=== PATIENT | female | born 1975 | race Caucasian/White ===

== ENCOUNTER → 2017-06-06 | Outpatient (REF) | payer BC ==
[2017-06-06 12:53] LABS: INFLUENZA A AMPLIFICATION NEGATIVE (NEGATIVE); INFLUENZA B AMPLIFICATION NEGATIVE (NEGATIVE); RSV AMPLIFICATION NEGATIVE (NEGATIVE)
== END ==
LOC: M LAB REF 11:36
DX: J11.1 Influenza due to unidentified influenza virus with other respiratory manifestations (principal)
CPT/HCPCS: 87502

== ENCOUNTER → 2018-06-04 | Outpatient (REF) | payer BC ==
[~2018-06-04] MED LIST: GLUC1000 OR; NUVA RING; XANA0.5T OR
== END ==
LOC: M LAB REF 12:28
PROVIDERS: ATTEND Nurse Practitioner Adult Health
DX: E11.65 Type 2 diabetes mellitus with hyperglycemia (principal)

== ENCOUNTER 2018-10-29 07:23 | Inpatient (IN) | payer BC ==
[~2018-10-29] VITALS: Ht 160 cm; Wt 60.5 kg
[2018-10-29] MEDS ORDERED: ROSU5TAB5 PO (07:34)
[2018-10-29] MEDS ORDERED: OZEM2INJ INJ (07:34)
[2018-10-29] MEDS ORDERED: HYDR25TAB PO (07:34)
[2018-10-29] MEDS ORDERED: NS 1,000 ML IV ONE ×2 (08:15→09:45)
[2018-10-29] MEDS ORDERED: KETOROLAC 30 MG/ML VIAL (J1885) IV ONE (08:15)
[2018-10-29] MEDS ORDERED: ONDANSETRON 4MG/2ML VIAL (J2405) IV ONE ×2 (08:15→09:30)
--- NOTE | 2018-10-29 08:35 | REP ---
PA and lateral chest: Comparison is the portable chest of 08/18/2011. The lung jacinto are clear. The cardiac size is normal. The jhony, mediastinum, and skeletal structures are unremarkable. Impression: Negative PA and lateral chest. . There is no interval change. There is no free subdiaphragmatic air. Electronically Signed by Roberto Fregoso MD 10/29/2018 08:27 A
[2018-10-29] MEDS ORDERED: MORPHINE 2 MG/ML 1ML SYRINGE (J2270) IV ONE ×2 (08:45→09:45)
[2018-10-29] MEDS ORDERED: ASPIRIN 81 MG CHEW TABLET PO ONE (08:45)
[2018-10-29 09:02] LABS: BASO % 0.2 % (0.0-1.0); HEMATOCRIT 41.4 % (36.0-47.0); HEMOGLOBIN 14.2 g/dl (12.0-15.5); LYMPH # 0.7 10^3/uL (1.5-4.5); LYMPH % 5.8 % (24.0-44.0); MEAN CORPUSCULAR HEMOGLOBIN 29.6 pg (27.0-33.0); MEAN CORPUSCULAR HGB CONC 34.3 g/dl (32.0-36.5); MEAN CORPUSCULAR VOLUME 86.3 fl (80.0-96.0); MONO # 0.6 10^3/uL (0.0-0.8); MONO % 4.7 % (0.0-5.0); NEUTROPHILS # 11.2 10^3/uL (1.8-7.7); PLATELET COUNT, AUTOMATED 288 10^3/uL (150-450); WHITE BLOOD COUNT 12.7 10^3/uL (4.0-10.0)
[2018-10-29 09:37] LABS: ALBUMIN 4.5 GM/DL (3.2-5.2); ALT/SGPT 21 U/L (12-78); BILIRUBIN,DIRECT 0.1 MG/DL (0.0-0.2); BILIRUBIN,TOTAL 0.5 MG/DL (0.2-1.0); BLOOD UREA NITROGEN 30 MG/DL (7-18); CALCIUM LEVEL 10.5 MG/DL (8.5-10.1); CARBON DIOXIDE LEVEL 28 MEQ/L (21-32); CHLORIDE LEVEL 98 MEQ/L (98-107); CK-MB VALUE MASS < 1.0 NG/ML (<3.6); CPK CREATINE PHOSPHOKINASE 109 U/L (26-192); CREATININE FOR GFR 1.36 MG/DL (0.55-1.30); GLOMERULAR FILTRATION RATE 45.2 (>58); GLUCOSE, FASTING 396 MG/DL (70-100); LIPASE 306 U/L (73-393); MB/CK RELATIVE INDEX 0.92 (< OR =4); POTASSIUM SERUM 3.6 MEQ/L (3.5-5.1); SODIUM LEVEL 139 MEQ/L (136-145); TOTAL PROTEIN 8.6 GM/DL (6.4-8.2); TROPONIN I < 0.02 NG/ML (< 0.10)
[2018-10-29] MEDS ORDERED: ISOVUE-370 76% 100ML VIAL (Q9967) As Ordered ONE (09:43)
[2018-10-29] MEDS ORDERED: HumuLIN R (REGULAR) INSULIN (NovoLIN R) **100U/ML** PER UNIT IV ONE (10:45)
--- NOTE | 2018-10-29 10:48 | REP ---
CT of the chest with IV contrast: Comparison is 05/20/2010. There is no thoracic aortic dissection. There is no periaortic hematoma. The ascending thoracic aorta is normal size measuring 3.4 cm in diameter. There are no emboli in the pulmonary trunk or central pulmonary arteries. There are no emboli in the pulmonary lobe or segment branches. There are no infiltrates or pleural effusions. There are no masses or nodules. There is no mediastinal, hilar or axillary lymph node enlargement. Cardiac size is normal. There is no pericardial effusion. Impression: Negative CT study of the chest. There is no thoracic aortic dissection. The ascending aorta is normal diameter. There are no pulmonary emboli. Electronically Signed by Roberto Fregoso MD 10/29/2018 10:39 A
--- NOTE | 2018-10-29 11:02 | REP ---
CT of the abdomen and pelvis with IV contrast, without bowel contrast: Studies performed. Contiguous with the chest CT. There is no abdominal aortic dissection or periaortic hematoma. There is no abdominal aortic aneurysm. The hepatic parenchyma, gallbladder, pancreas, spleen, adrenals, kidneys are unremarkable. The bowel and mesentery are unremarkable. Pelvis: The uterus and adnexa are unremarkable. There is no ascites or adenopathy. The bladder is unremarkable. Impression: There is no evidence of abdominal aortic dissection or aneurysm. No periaortic hematoma. Otherwise, negative CT of the abdomen and pelvis. Electronically Signed by Roberto Fregoso MD 10/29/2018 10:53 A
[2018-10-29] MEDS ORDERED: GLUCAGON FOR INJ 1 MG VIAL (J1610) SC PRN (12:30)
[2018-10-29] MEDS ORDERED: GLUCOSE 4 GM CHEW TABLET PO PRN (12:30)
[2018-10-29] MEDS ORDERED: KETOROLAC 30 MG/ML VIAL (J1885) IV PRN (12:30)
[2018-10-29] MEDS ORDERED: ONDANSETRON 4MG/2ML VIAL (J2405) IV PRN (12:30)
[2018-10-29] MEDS ORDERED: DEXTROSE 50% 50 ML SYRINGE IV PRN (12:30)
[2018-10-29] MEDS ORDERED: IBUP200T45 PO (12:46)
[2018-10-29] MEDS ORDERED: BAYE325T12 PO (12:46)
[2018-10-29] MEDS ORDERED: MULTCAP PO (12:46)
[2018-10-29] MEDS ORDERED: META28.32 PO (12:46)
[2018-10-29 14:55] VITALS: BP 150/90
[2018-10-29] MEDS: PANTOPRAZOLE 40MG INJ (PROTONIX) (C9113) IV SCH (15:26)
[2018-10-29] MEDS: METOCLOPRAMIDE INJ 10MG/2ML VIAL (J2765) IV SCH ×2 (15:27→21:28)
[2018-10-29] MEDS: NS 1,000 ML IV SCH ×2 (15:40→21:29)
[2018-10-29 16:20] VITALS: BP 133/91
[2018-10-29] MEDS: HumaLOG INSULIN (NovoLOG) PER UNIT SC SCH ×2 (17:30→21:00)
--- NOTE | 2018-10-29 17:53 | HPEPDOC ---
General Date of Admission Oct 29, 2018 at 12:19 Date of Service: Oct 29, 2018 Chief Complaint The patient is a 43-year-old female admitted with a reason for visit of Lactic Acidosis,Side Effect Of Drug. Source: Patient, Family, RN/MD Exam Limitations: No limitations Severity: Moderate History of Present Illness 43 year old female with PMH of Uncontrolled Diabetes non insulin dependent, hypertension, anxiety, GERD, NSTEMI due to oral contraceptive use was started on a new antidiabetic medication Semaglutide 3 days ago. It was a subcut injection. 1 day after the injection she had a barbeque at her house and had a little to eat. From the evening she started having nausea followed by intractable vomiting throughout the night and the next day. She has not able to keep any food down. HShe noticed decreased urine output with dark colored urine. She was feeling extremely weak and tired so came to the ED. In [facility] ED her sugar was 476 and her lactate was elevated to 5.0. She was given 5 units of IV regular insulin with improvement of her blood sugar. She was give 2 liters of bolus ivf with improvement of her lactate down to 2.5. However she continued to have nausea and vomiting and unable to keep any food down so she was admitted to the hospitalist service. She was thought to have an severe side effect to Semaglu tide and lactacidosis. On my interview she complained of generalized abdominal pain in all the leti drants 10/10 in intensity , dull aching in nature which she attributed to retching and vomiting, it was a little better with morphine. She still has persistent nausea. Home Medications Scheduled Hydrochlorothiazide (Hydrochlorothiazide) 25 Mg Tablet, 25 MG PO DAILY, (Reported) Multivitamin (Multivitamins) 1 Each Capsule, 1 CAP PO DAILY, (Reported) Psyllium Husk (with Sugar) (Metamucil Powder) 575 Gm Powder, 1 PKT PO DAILY, (Reported) Rosuvastatin Calcium (Rosuvastatin Calcium) 5 Mg Tablet, 5 MG PO DAILY, (Reported) Semaglutide (Ozempic) 0.25 Mg/0.2 Ml Pen.injctr, 1 DOSE INJ QWEEK, (Reported) PATIENT STATES THIS MONDAY MORNING WAS THE FIRST TIME SHE RECEIVED INJECTION AND SHE BELIEVES SHE IS HERE DUE TO A BAD REACTION FROM IT. Scheduled PRN Aspirin (Aspirin) 325 Mg Tablet, 650 MG PO DAILY PRN for PAIN, (Reported) Ibuprofen (Ibu-200) 200 Mg Tablet, 400 MG PO Q6H PRN for PAIN, (Reported) Allergies Coded Allergies: acetaminophen (Verified Allergy, Intermediate, RASH, 10/29/18) codeine (Verified Allergy, Intermediate, rash, itchy, 10/29/18) hydrocodone (Verified Allergy, Intermediate, RASH, 10/29/18) Past Medical History Medical History Diabetes, hypertension, anxiety, GERD, NSTEMI due to oral contraceptive use. Surgical History c section, cardiac cath Family History Significant Family History: Diabetes Social History * Smoker: Denies Alcohol: occationally Drugs: denies A-FIB/CHADSVASC A-FIB History Current/History of A-Fib/PAF?: No Review of Systems Constitutional: Reports: Chills Eyes: Denies: Pain, Vision change ENT: Denies: Head Aches, Ear Pain, Dysphagia Skin: Denies: Rash, Lesions, Breakdown Pulmonary: Denies: Dyspnea, Cough Cardiovascular: Reports: Chest Pain, Palpitations Gastrointestinal: Reports: Nausea, Vomiting, Abdominal Pain Genitourinary: Reports: Other Symptoms (decreased urine output. ) Hematologic: Denies: Bruising, Bleeding Excessively Endocrine: Reports: Polyuria Musculoskeletal: Denies: Neck Pain, Back Pain, Joint Pain, Muscle Pain, Spasms Neurological: Denies: Weakness, Numbness, Change in speech, Confusion Physical Examination General Exam: Positive: Alert, Cooperative, Mild Distress Eye Exam: Positive: PERRLA, Conjunctiva & lids normal, EOMI; Negative: Sclera icteric ENT Exam: Positive: Atraumatic, Mucous membr. moist/pink, Pharynx Normal Neck Exam: Positive: Supple; Negative: JVD, thyromegaly Chest Exam: Positive: Clear to auscultation, Normal air movement Heart Exam: Positive: Rate Normal, Regular Rhythm, Normal S1, Normal S2; Negative: Murmurs, Rubs Abdomen Exam: Positive: BS Hypoactive, Soft, Tenderness (generalized tenderness); Negative: Hepatospenomegaly Extremity Exam: Positive: Normal pulses; Negative: Clubbing, Cyanosis, Edema Skin Exam: Positive: Nl turgor and temperature; Negative: Breakdown, Lesion Neuro Exam: Positive: Normal Gait, Normal Speech, Cranial Nerves 3-12 NL, Reflexes 2+ Psych Exam: Positive: Memory Intact, Oriented x 3 Vital Signs Vital Signs Date Time Temp Pulse Resp B/P (MAP) Pulse Ox O2 Delivery O2 Flow Rate FiO2 10/29/18 14:55 97.5 100 20 150/90 (110) 100 10/29/18 10:45 4.0 10/29/18 10:41 Room Air Laboratory Data Labs 24H Laboratory Tests 2 10/29/18 08:46: Immature Granulocyte % (Auto) 1.3, White Blood Count 12.7H, Red Blood Count 4.80, Hemoglobin 14.2, Hematocrit 41.4, Mean Corpuscular Volume 86.3, Mean Corpuscular Hemoglobin 29.6, Mean Corpuscular Hemoglobin Concent 34.3, Red Cell Distribution Width 12.7, Platelet Count 288, Neutrophils (%) (Auto) 88.0H, Lymphocytes (%) (Auto) 5.8L, Monocytes (%) (Auto) 4.7, Eosinophils (%) (Auto) 0.0, Basophils (%) (Auto) 0.2, Neutrophils # (Auto) 11.2H, Lymphocytes # (Auto) 0.7L, Monocytes # (Auto) 0.6, Eosinophils # (Auto) 0.0, Basophils # (Auto) 0.0, Nucleated Red Blood Cells % (auto) 0.0, Anion Gap 13, Glomerular Filtration Rate 45.2L, Lactic Acid Level 5.0*H, Calcium Level 10.5H, Aspartate Amino Transf (AST/SGOT) 10, Alanine Aminotransferase (ALT/SGPT) 21, Alkaline Phosphatase 75, Total Bilirubin 0.5, Direct Bilirubin 0.1, Total Creatine Kinase 109, Creatine Kinase MB < 1.0, Creatine Kinase MB Relative Index 0.92, Troponin I < 0.02, Total Protein 8.6H, Albumin 4.5, Albumin/Globulin Ratio 1.10, Lipase 306 10/29/18 08:54: POC Glucose (Misc Panel) 426H, POC Sodium (Misc Panel) 139, POC Potassium (Misc Panel) 3.6, POC Chloride (Misc Panel) 96L, POC Total CO2 (Misc Panel) 28.0H, POC Blood Urea Nitrogen (Misc Panel 35H, POC Ionized Calcium (Misc Panel) 4.6, POC Creatinine (Misc Panel) 1.0, POC Hematocrit (Misc Panel) 43.0 7/22/19 09:14: POC Beta HCG, Quantitative < 5.0 10/29/18 09:55: POC Total CO2 (Misc Panel) 28.0H, POC pH (Misc Panel) 7.389, POC Base Excess (Misc Panel) 2.0, POC Saturated Percent O2 (Misc) 99H, POC pO2 (Misc Panel) 156.0H, POC pCO2 (Misc Panel) 44.7, POC HCO3 (Misc Panel) 27.0H 10/29/18 12:03: Bedside Glucose (Misc Panel) 133H 10/29/18 12:05: Urine Color STRAW, Urine Appearance CLEAR, Urine pH 8.0, Urine Specific Echo 1.050, Urine Protein NEGATIVE, Urine Glucose (UA) 3+H, Urine Ketones 1+H, Urine Blood 1+H, Urine Nitrite NEGATIVE, Urine Bilirubin NEGATIVE, Urine Urobilinogen 0.2, Urine Leukocyte Esterase NEGATIVE, Urine WBC (Auto) 0, Urine RBC (Auto) 2, Urine Hyaline Casts (Auto) 0, Urine Bacteria (Auto) NEGATIVE, Urine Squamous Epithelial Cells 0, Urine Sperm (Auto) 10/29/18 13:04: Lactic Acid Followup at 4 Hours 2.5*H CBC/BMP Laboratory Tests 10/29/18 08:46 Red Blood Count 4.80, Mean Corpuscular Volume 86.3, Mean Corpuscular Hemoglobin 29.6, Mean Corpuscular Hemoglobin Concent 34.3, Red Cell Distribution Width 12.7, Neutrophils (%) (Auto) 88.0 H, Lymphocytes (%) (Auto) 5.8 L, Monocytes (%) (Auto) 4.7, Eosinophils (%) (Auto) 0.0, Basophils (%) (Auto) 0.2, Neutrophils # (Auto) 11.2 H, Lymphocytes # (Auto) 0.7 L, Monocytes # (Auto) 0.6, Eosinophils # (Auto) 0.0, Basophils # (Auto) 0.0 Assessment/Plan 43 year old female with PMH of Uncontrolled Diabetes non insulin dependent, hypertension, anxiety, GERD, NSTEMI due to oral contraceptive use was started on a new antidiabetic medication Semaglutide 3 days ago. It was a subcut injection. 1 day after the injection she had a barbeque at her house and had a little to eat. From the evening she started having nausea followed by intractable vomiting throughout the night and the next day. She has not able to keep any food down. HShe noticed decreased urine output with dark colored urine. She was feeling extremely weak and tired so came to the ED. In [facility] ED her sugar was 476 and her lactate was elevated to 5.0. She was given 5 units of IV regular insulin with improvement of her blood sugar. She was give 2 liters of bolus ivf with improvement of her lactate down to 2.5. However she continued to have nausea and vomiting and unable to keep any food down so she was admitted to the hospitalist service. She was thought to have an severe side effect to Semaglu tide and lactacidosis. Nausea and vomiting possibly side effect of medication however she tells me her stomach is very sensitive and she often has this problem so i am concerned whether she has underlying diabetic gastroparesis or not will get a gastric emptying study when she can tolerate oral diet. symptomatic management reglan, zofran, pantoprazole , toradol IVF, full liquids. as tolerated. Lactacidosis due to uncontrolled diabetes, intractable vomiting with possibly dehydration. continue IVF. Acute kidney injury due to dehydration from intractable vomiting, no oral intake and osmotic diuresis from high sugars. continue IVF Diabetes mellitus not on insulin diagnosed in 2009 but never controlled. uncontrolled. noncompliant with meds. will give lispro and levemir insulin hypertension will start on losartan at HS will hold HCTZ for now. GERD continue pantoprazole DVT prophylaxis ordered. Plan / VTE VTE Prophylaxis Ordered?: Yes BLANKA LOCO MD Oct 29, 2018 17:24
[2018-10-29] MEDS ORDERED: PROMETHAZINE INJ 25 MG/ML VIAL (J2550) IV ONE (18:30)
--- NOTE | 2018-10-29 19:49 | ECGEPIP ---
[facility] - ED Test Date: 2018-10-29 Pat Name: SONI LAWSON Department: Room: - Gender: Female Acid Loader: ROB : 1975 Requested By: MADELEINE Jin PA-C Order Number: [id number] Reading MD: Avni Gaming Measurements Intervals [place] Rate: 94 P: 44 MI: 164 QRS: 8 QRSD: 89 T: 93 QT: 344 QTc: 432 Interpretive Statements SINUS RHYTHM POSSIBLE LEFT ATRIAL ENLARGEMENT POOR R WAVE PROGRESSION NO PRIORS FOR COMPARISON MODERATE T-WAVE ABNORMALITY, CONSIDER LATERAL ISCHEMIA Electronically Signed on 10-29-2018 19:48:45 EDT by Avni Gaming
[2018-10-29 20:11] VITALS: BP 139/75
[2018-10-29] MEDS: LOSARTAN 25 MG TAB PO SCH (21:29)
[2018-10-30] MEDS: NS 1,000 ML IV SCH (03:35)
[2018-10-30] MEDS: METOCLOPRAMIDE INJ 10MG/2ML VIAL (J2765) IV SCH ×2 (05:07→13:04)
[2018-10-30 05:34] VITALS: BP 142/82
[2018-10-30 06:49] LABS: BASO % 0.2 % (0.0-1.0); EOS % 0.2 % (0.0-3.0); HEMATOCRIT 34.2 % (36.0-47.0); LYMPH # 1.6 10^3/uL (1.5-4.5); MEAN CORPUSCULAR HEMOGLOBIN 29.9 pg (27.0-33.0); MEAN CORPUSCULAR HGB CONC 33.6 g/dl (32.0-36.5); MEAN CORPUSCULAR VOLUME 89.1 fl (80.0-96.0); MONO # 0.9 10^3/uL (0.0-0.8); MONO % 6.6 % (0.0-5.0); NEUTROPHILS # 10.5 10^3/uL (1.8-7.7); NEUTROPHILS % 80.4 % (36.0-66.0); PLATELET COUNT, AUTOMATED 216 10^3/uL (150-450); RED BLOOD COUNT 3.84 10^6/uL (4.00-5.40); WHITE BLOOD COUNT 13.1 10^3/uL (4.0-10.0)
[2018-10-30 06:56] LABS: HEMOGLOBIN 11.5 g/dl (12.0-15.5)
[2018-10-30 07:05] LABS: BLOOD UREA NITROGEN 28 MG/DL (7-18); CALCIUM LEVEL 7.9 MG/DL (8.5-10.1); CARBON DIOXIDE LEVEL 29 MEQ/L (21-32); CHLORIDE LEVEL 109 MEQ/L (98-107); CREATININE FOR GFR 0.96 MG/DL (0.55-1.30); GLOMERULAR FILTRATION RATE > 60.0 (>58); GLUCOSE, FASTING 145 MG/DL (70-100); POTASSIUM SERUM 3.4 MEQ/L (3.5-5.1); SODIUM LEVEL 143 MEQ/L (136-145)
--- NOTE | 2018-10-30 07:50 | IPNPDOC ---
Date Seen The patient was seen on 10/30/18. Progress Note SUBJECTIVE: Patient is a 43-year-old female with past medical history of diabetes non insulin dependent, Hypertension, Anxiety, GERD, NSTEMI from oral contraceptives who presented to the ER with lactic acidosis, likely a side effect of new medication. OBJECTIVE PHYSICAL EXAMINATION: VITAL SIGNS: Please see below. LABORATORY DATA, IMAGING STUDIES, MICROBIOLOGY: Please see below. 1. Chest x-ray 10/29/18: Negative PA and lateral chest. There is no interval change. There is no free subdiaphragmatic air. 2. Angiography CT 10/29/18: Negative CT study of the chest.There is no thoracic aortic dissection. The ascending aorta is normal diameter. There are no pulmonary emboli 3. Abdominal/Pelvis CT 10/29/18: There is no evidence of abdominal aortic dissection or aneurysm. No periaortic hematoma. Otherwise, negative CT of the abdomen and pelvis. DVT prophylaxis ordered?: Yes, ASSESSMENT AND PLAN: Patient is a 43-year-old female with past medical history of diabetes non insulin dependent, Hypertension, Anxiety, GERD, NSTEMI from oral contraceptives PROBLEMS: Nausea and vomiting possibly side effect of medication however she tells me her stomach is very sensitive and she often has this problem so i am concerned whether she has underlying diabetic gastroparesis or not will get a gastric emptying study when she can tolerate oral diet. symptomatic management reglan, zofran, pantoprazole , toradol IVF, full liquids. as tolerated. Marijuaha patient admits to intermittent use of marihuana last use was on 10/27 and thats the day when she started vomiting. So wondering if this could be cyclical vomiting syndrome due to marihuana Lactacidosis due to uncontrolled diabetes, intractable vomiting with possibly dehydration. continue IVF. Acute kidney injury resolved. due to dehydration from intractable vomiting, no oral intake and osmotic diuresis from high sugars. continue IVF Diabetes mellitus not on insulin diagnosed in 2009 but never controlled. uncontrolled. noncompliant with meds. will give lispro and levemir insulin hypertension will start on losartan at HS will hold HCTZ for now. Anxiety / depression and stress says says that lots of bad things are going on in her personal life that is making everything worse. She was emotional and crying. GERD continue pantoprazole DVT prophylaxis ordered. DISPOSITION: VS, I&O, 24H, Fishbone Vital Signs/I&O Vital Signs Date Time Temp Pulse Resp B/P (MAP) Pulse Ox O2 Delivery O2 Flow Rate FiO2 10/30/18 05:34 98.6 91 18 142/82 (102) 98 2.0 10/29/18 10:41 Room Air I&O- Last 24 Hours up to 6 AM 10/30/18 06:00 Intake Total 2780 ml Output Total 0 ml Balance 2780 ml Laboratory Data 24H LABS Laboratory Tests 2 10/29/18 08:46: Immature Granulocyte % (Auto) 1.3, White Blood Count 12.7H, Red Blood Count 4.80, Hemoglobin 14.2, Hematocrit 41.4, Mean Corpuscular Volume 86.3, Mean Corpuscular Hemoglobin 29.6, Mean Corpuscular Hemoglobin Concent 34.3, Red Cell Distribution Width 12.7, Platelet Count 288, Neutrophils (%) (Auto) 88.0H, Lymphocytes (%) (Auto) 5.8L, Monocytes (%) (Auto) 4.7, Eosinophils (%) (Auto) 0.0, Basophils (%) (Auto) 0.2, Neutrophils # (Auto) 11.2H, Lymphocytes # (Auto) 0.7L, Monocytes # (Auto) 0.6, Eosinophils # (Auto) 0.0, Basophils # (Auto) 0.0, Nucleated Red Blood Cells % (auto) 0.0, Anion Gap 13, Glomerular Filtration Rate 45.2L, Lactic Acid Level 5.0*H, Calcium Level 10.5H, Aspartate Amino Transf (AST/SGOT) 10, Alanine Aminotransferase (ALT/SGPT) 21, Alkaline Phosphatase 75, Total Bilirubin 0.5, Direct Bilirubin 0.1, Total Creatine Kinase 109, Creatine Kinase MB < 1.0, Creatine Kinase MB Relative Index 0.92, Troponin I < 0.02, Total Protein 8.6H, Albumin 4.5, Albumin/Globulin Ratio 1.10, Lipase 306 10/29/18 08:54: POC Glucose (Misc Panel) 426H, POC Sodium (Misc Panel) 139, POC Potassium (Misc Panel) 3.6, POC Chloride (Misc Panel) 96L, POC Total CO2 (Misc Panel) 28.0H, POC Blood Urea Nitrogen (Misc Panel 35H, POC Ionized Calcium (Misc Panel) 4.6, POC Creatinine (Misc Panel) 1.0, POC Hematocrit (Misc Panel) 43.0 10/29/18 09:14: POC Beta HCG, Quantitative < 5.0 10/29/18 09:55: POC Total CO2 (Misc Panel) 28.0H, POC pH (Misc Panel) 7.389, POC Base Excess (Misc Panel) 2.0, POC Saturated Percent O2 (Misc) 99H, POC pO2 (Misc Panel) 156.0H, POC pCO2 (Misc Panel) 44.7, POC HCO3 (Misc Panel) 27.0H 10/29/18 12:03: Bedside Glucose (Misc Panel) 133H 10/29/18 12:05: Urine Color STRAW, Urine Appearance CLEAR, Urine pH 8.0, Urine Specific [place] 1.050, Urine Protein NEGATIVE, Urine Glucose (UA) 3+H, Urine Ketones 1+H, Urine Blood 1+H, Urine Nitrite NEGATIVE, Urine Bilirubin NEGATIVE, Urine Urobilinogen 0.2, Urine Leukocyte Esterase NEGATIVE, Urine WBC (Auto) 0, Urine RBC (Auto) 2, Urine Hyaline Casts (Auto) 0, Urine Bacteria (Auto) NEGATIVE, Urine Squamous Epithelial Cells 0, Urine Sperm (Auto) 10/29/18 13:04: Lactic Acid Followup at 4 Hours 2.5*H 10/29/18 17:01: Bedside Glucose (Misc Panel) 224H 10/29/18 20:37: Bedside Glucose (Misc Panel) 197H 10/30/18 06:12: Immature Granulocyte % (Auto) 0.6, White Blood Count 13.1H, Red Blood Count 3.84L, Hemoglobin 11.5#L, Hematocrit 34.2L, Mean Corpuscular Volume 89.1, Mean Corpuscular Hemoglobin 29.9, Mean Corpuscular Hemoglobin Concent 33.6, Red Cell Distribution Width 13.2, Platelet Count 216, Neutrophils (%) (Auto) 80.4H, Lymphocytes (%) (Auto) 12.0L, Monocytes (%) (Auto) 6.6H, Eosinophils (%) (Auto) 0.2, Basophils (%) (Auto) 0.2, Neutrophils # (Auto) 10.5H, Lymphocytes # (Auto) 1.6, Monocytes # (Auto) 0.9H, Eosinophils # (Auto) 0.0, Basophils # (Auto) 0.0, Nucleated Red Blood Cells % (auto) 0.0, Anion Gap 5L, Glomerular Filtration Rate > 60.0, Blood Urea Nitrogen 28H, Creatinine 0.96, Sodium Level 143, Potassium Level 3.4L, Chloride Level 109H, Carbon Dioxide Level 29, Calcium Level 7.9#L CBC/BMP Laboratory Tests 10/29/18 08:46 Red Blood Count 4.80, Mean Corpuscular Volume 86.3, Mean Corpuscular Hemoglobin 29.6, Mean Corpuscular Hemoglobin Concent 34.3, Red Cell Distribution Width 12.7, Neutrophils (%) (Auto) 88.0 H, Lymphocytes (%) (Auto) 5.8 L, Monocytes (%) (Auto) 4.7, Eosinophils (%) (Auto) 0.0, Basophils (%) (Auto) 0.2, Neutrophils # (Auto) 11.2 H, Lymphocytes # (Auto) 0.7 L, Monocytes # (Auto) 0.6, Eosinophils # (Auto) 0.0, Basophils # (Auto) 0.0 10/30/18 06:12 Red Blood Count 3.84 L, Mean Corpuscular Volume 89.1, Mean Corpuscular Hemoglobin 29.9, Mean Corpuscular Hemoglobin Concent 33.6, Red Cell Distribution Width 13.2, Neutrophils (%) (Auto) 80.4 H, Lymphocytes (%) (Auto) 12.0 L, Monocytes (%) (Auto) 6.6 H, Eosinophils (%) (Auto) 0.2, Basophils (%) (Auto) 0.2, Neutrophils # (Auto) 10.5 H, Lymphocytes # (Auto) 1.6, Monocytes # (Auto) 0.9 H, Eosinophils # (Auto) 0.0, Basophils # (Auto) 0.0, Calcium Level 7.9 #L Attending Note Attending Note I have personally seen and examined the patient this am. I agree with the finding and the plan of care as documented above in the resident's/ medical student's note. SEJAL HARRISON OMS-3 Oct 30, 2018 07:50 BLANKA LOCO MD Oct 30, 2018 16:35
[2018-10-30] MEDS ORDERED: PILL CUTTER 1 EACH XX PRN (08:00)
[2018-10-30] MEDS: HumaLOG INSULIN (NovoLOG) PER UNIT SC SCH ×4 (08:41→20:43)
[2018-10-30] MEDS: KCL 40MEQ in NS 1000ML 1,000 ML IV SCH ×2 (08:50→20:40)
[2018-10-30] MEDS: ROSUVASTATIN 10 MG TAB (CRESTOR) PO SCH (08:51)
[2018-10-30] MEDS ORDERED: ONDANSETRON 4 MG ORAL DISINTEGRATING TAB (Q0162 PER 1MG) PO SCH (09:00)
[2018-10-30] MEDS ORDERED: PROMETHAZINE INJ 25 MG/ML VIAL (J2550) IV ONE (10:30)
[2018-10-30] MEDS: PANTOPRAZOLE 40MG INJ (PROTONIX) (C9113) IV SCH (13:03)
[2018-10-30 14:00] VITALS: BP 175/90
--- NOTE | 2018-10-30 16:49 | REP ---
NUCLEAR GASTRIC EMPTYING SCAN: Following the oral administration of 1.06 mCi of technetium 99m sulfur colloid in 1 scrambled egg and 12 ounces of water, images of the stomach are obtained in the anterior and posterior projections for 90 minutes. The gastric activity is measured. At the end of 90 minutes, there is not significant emptying of the stomach. The same degree of activity is seen at the 90 minute felecia compared to the start of the exam. IMPRESSION: Findings compatible with gastroparesis. Electronically Signed by Roberto Lim MD 10/31/2018 10:08 A
[2018-10-30] MEDS: METOCLOPRAMIDE 5 MG TAB PO SCH ×2 (18:11→20:42)
[2018-10-30] MEDS: ONDANSETRON 4MG/2ML VIAL (J2405) IV PRN (18:11)
[2018-10-30 20:00] VITALS: BP 152/87
[2018-10-30] MEDS: LOSARTAN 25 MG TAB PO SCH (20:43)
[2018-10-30] MEDS: KETOROLAC 30 MG/ML VIAL (J1885) IV PRN (21:03)
[2018-10-31] MEDS: KETOROLAC 30 MG/ML VIAL (J1885) IV PRN (05:49)
[2018-10-31] MEDS: KCL 40MEQ in NS 1000ML 1,000 ML IV SCH (05:50)
[2018-10-31 06:23] VITALS: BP 183/92
[2018-10-31 06:44] LABS: BASO % 0.2 % (0.0-1.0); EOS % 0.2 % (0.0-3.0); HEMATOCRIT 36.7 % (36.0-47.0); HEMOGLOBIN 12.5 g/dl (12.0-15.5); LYMPH # 1.5 10^3/uL (1.5-4.5); LYMPH % 11.9 % (24.0-44.0); MEAN CORPUSCULAR HEMOGLOBIN 28.9 pg (27.0-33.0); MEAN CORPUSCULAR HGB CONC 34.1 g/dl (32.0-36.5); MONO # 0.8 10^3/uL (0.0-0.8); MONO % 6.5 % (0.0-5.0); NEUTROPHILS # 10.2 10^3/uL (1.8-7.7); NEUTROPHILS % 80.7 % (36.0-66.0); PLATELET COUNT, AUTOMATED 242 10^3/uL (150-450); RED BLOOD COUNT 4.32 10^6/uL (4.00-5.40); WHITE BLOOD COUNT 12.7 10^3/uL (4.0-10.0)
[2018-10-31 07:07] LABS: BLOOD UREA NITROGEN 23 MG/DL (7-18); CALCIUM LEVEL 8.4 MG/DL (8.5-10.1); CARBON DIOXIDE LEVEL 23 MEQ/L (21-32); CHLORIDE LEVEL 109 MEQ/L (98-107); CREATININE FOR GFR 0.97 MG/DL (0.55-1.30); GLOMERULAR FILTRATION RATE > 60.0 (>58); GLUCOSE, FASTING 129 MG/DL (70-100); POTASSIUM SERUM 3.6 MEQ/L (3.5-5.1); SODIUM LEVEL 140 MEQ/L (136-145)
[2018-10-31] MEDS: ROSUVASTATIN 10 MG TAB (CRESTOR) PO SCH (07:48)
[2018-10-31] MEDS: ONDANSETRON 4MG/2ML VIAL (J2405) IV PRN (07:48)
[2018-10-31] MEDS: METOCLOPRAMIDE 5 MG TAB PO SCH (07:48)
[2018-10-31] MEDS ORDERED: diphenhydrAMINE 12.5MG/5ML ELIXIR UDC PO PRN (08:30)
[2018-10-31] MEDS ORDERED: hydrOXYzine 10MG/5ML SYRUP PO PRN (08:30)
[2018-10-31] MEDS: HumaLOG INSULIN (NovoLOG) PER UNIT SC SCH ×4 (08:34→20:48)
[2018-10-31] MEDS: METAMUCIL (PSYLLIUM) PACKET PO SCH (09:00)
[2018-10-31] MEDS ORDERED: METOCLOPRAMIDE HCL LIQUID 10 MG/10 ML UDC PO SCH (09:00)
[2018-10-31] MEDS: FIBER-CON 625 MG TAB PO SCH (09:52)
[2018-10-31] MEDS: hydroCHLOROthiazide 25 MG TAB PO SCH (09:52)
[2018-10-31] MEDS: MIRALAX *UNIT DOSE* 17GM PACKET PO SCH (09:53)
[2018-10-31] MEDS ORDERED: FLEET ENEMA PR PRN (12:15)
[2018-10-31 14:00] VITALS: BP 150/90
[2018-10-31] MEDS: PANTOPRAZOLE 40MG INJ (PROTONIX) (C9113) IV SCH ×2 (14:29→20:47)
[2018-10-31 15:00] VITALS: BP 167/95
[2018-10-31 15:01] VITALS: BP 178/106
[2018-10-31 15:39] VITALS: BP 158/90
--- NOTE | 2018-10-31 18:35 | IPNPDOC ---
Text Note Date of Service The patient was seen on 10/31/18. NOTE SUBJECTIVE: Patient examined at bedside, continues to have nausea and vomiting this morning, and right upper quadrant pain. She is throwing up even the liquids she is trying to ingest. She is tearful about her symptoms, expressing anxiety and concern that she is having these persistent symptoms for months without getting better. Otherwise patient denies chest pain, shortness breath, nausea, vomiting, fevers, chills. OBJECTIVE PHYSICAL EXAMINATION: VITAL SIGNS: Please see below. GENERAL: NAD, sitting up in bed awake alert oriented speaking in complete sentences, A&Ox3, spitting up into vomit bag HEENT: Moist mucous membranes no elevation in CVP CARDIOVASCULAR: S1 S2 regular no additional heart sounds appreciated. RESPIRATORY: Clear to auscultation bilaterally. ABDOMINAL: Bowel sounds present abdomen soft and non-tender. Discomfort with palpation of RUQ. No guarding, rebound, rigidity EXTREMITIES: No clubbing cyanosis or edema NEUROLOGICAL: Spontaneously moves all 4 extremities cranial 2 through 12 grossly intact no gross focal deficits appreciated PSYCHOLOGICAL: crying, anxious and stressed about symptoms LABORATORY DATA, MICROBIOLOGY: Please see below. IMAGING STUDIES: 10/27/2018 gastric imaging study:. The gastric activity is measured. At the end of 90 minutes, there is not significant emptying of the stomach. The same degree of activity is seen at the 90 minute felecia compared to the start of the exam. IMP RESSION: Findings compatible with gastroparesis. ASSESSMENT AND PLAN: This is a 43 yo F with uncontrolled diabetes, recently started on Ozempic 10/26, here for n/v since 10/27. PROBLEMS: 1. Intractable nausea and vomiting. Multifactorial: Anxiety, possible IBS, diabetic gastroparesis with A1c 10, cyclic vomiting syndrome, Ozempic side effect. She continues to have intractable nausea and vomiting this morning, crying about her symptoms. She underwent gastric emptying study yesterday which revealed gastroparesis. She's been started on prokinetic Reglan & antiemetics wi thout much improvement. She refuses to be on SSRI, as she had been on a trial of Cymbalta for about 6 months in the past for her presumed IBS, however she states this made her symptoms worse. Currently will withhold GI meds with goal of giving her GI tract rest and time to recover, especially as she has been on multiple medications over the past months in attempting to alleviate her ongoing symptoms. Make nothing by mouth except meds, IV PPI for gastric protection. Will continue monitoring. Encouraged increased fiber intake and stool softeners. 2. Anxiety: Patient reports being on Xanax in the past which was stopped by her new PCP. Is visibly anxious during her hospitalization, crying on exam. Will start Atarax and monitor. 3. Hypertension: Continue home hydrochlorothiazide. She is also been started on Cozaar during this hospitalization. Mildly elevated BP, which I suspect is partially induced by her stress and anxiety over GI symptoms. Patient asymptomatic. Will monitor BP as we aim to improve her nausea and vomiting and anxiety. Will consider switching to CCB if bp does not improve. 4. Uncontrolled NIDDM2: Diagnosed in 2009, the patient noncompliant with meds and diabetes was never under control. Patient should avoid Ozempic as her GI issues may be a result of the medication. A1c 10. Patient counseled on lifestyle changes and medication compliance. Blood sugars in acceptable range on hospitalization. Continue ISS. 5. Leukocytosis: Patient afebrile and does not display signs of infection. I suspect this is likely reactionary to her ongoing nausea and vomiting. Monitor 6. Hypokalemia: Resolved from yesterday with supplementation 7. Hyperlipidemia: Continue home Crestor 8. GERD: Home PPI switch to IV twice a day given her acute GI symptoms 9. Marijuana use: Patient counseled on possibility of this worsening her GI symptoms and she will likely benefit from cessation. DVT prophylaxis: MERVIN/sequentials DISPOSITION: Pending clinical improvement. I saw and evaluated the patient. I agree with the findings and plan of care as documented in the above note Alyssa OWUSU, I+O VSAlyssa, I+O Laboratory Tests 10/31/18 06:06 Red Blood Count 4.32, Mean Corpuscular Volume 85.0, Mean Corpuscular Hemoglobin 28.9, Mean Corpuscular Hemoglobin Concent 34.1, Red Cell Distribution Width 12.7, Neutrophils (%) (Auto) 80.7 H, Lymphocytes (%) (Auto) 11.9 L, Monocytes (%) (Auto) 6.5 H, Eosinophils (%) (Auto) 0.2, Basophils (%) (Auto) 0.2, Neutrophils # (Auto) 10.2 H, Lymphocytes # (Auto) 1.5, Monocytes # (Auto) 0.8, Eosinophils # (Auto) 0.0, Basophils # (Auto) 0.0, Calcium Level 8.4 L Vital Signs Date Time Temp Pulse Resp B/P (MAP) Pulse Ox O2 Delivery O2 Flow Rate FiO2 10/31/18 15:39 158/90 (112) 10/31/18 15:00 99.0 88 17 100 10/30/18 05:34 2.0 10/29/18 10:41 Room Air I&O- Last 24 Hours up to 6 AM 10/31/18 06:00 Intake Total 2844 ml Output Total 340 ml Balance 2504 ml PIERRE CARVAJAL DO Oct 31, 2018 18:35 JOAQUIN RICE MD Nov 01, 2018 18:46
[2018-10-31] MEDS: LOSARTAN 25 MG TAB PO SCH (20:47)
[2018-10-31 22:00] VITALS: BP 148/92
[2018-11-01] MEDS: KETOROLAC 30 MG/ML VIAL (J1885) IV PRN ×2 (00:35→09:32)
[2018-11-01 06:00] VITALS: BP 156/100
[2018-11-01 06:18] LABS: BASO % 0.2 % (0.0-1.0); EOS # 0.1 10^3/uL (0.0-0.50); EOS % 0.8 % (0.0-3.0); HEMATOCRIT 37.8 % (36.0-47.0); LYMPH % 21.5 % (24.0-44.0); MEAN CORPUSCULAR HEMOGLOBIN 29.3 pg (27.0-33.0); MEAN CORPUSCULAR HGB CONC 34.4 g/dl (32.0-36.5); MEAN CORPUSCULAR VOLUME 85.1 fl (80.0-96.0); MONO # 0.7 10^3/uL (0.0-0.8); MONO % 7.9 % (0.0-5.0); NEUTROPHILS # 6.3 10^3/uL (1.8-7.7); NEUTROPHILS % 68.9 % (36.0-66.0); PLATELET COUNT, AUTOMATED 259 10^3/uL (150-450); RED BLOOD COUNT 4.44 10^6/uL (4.00-5.40); WHITE BLOOD COUNT 9.1 10^3/uL (4.0-10.0)
[2018-11-01 06:41] LABS: BLOOD UREA NITROGEN 29 MG/DL (7-18); CALCIUM LEVEL 8.7 MG/DL (8.5-10.1); CARBON DIOXIDE LEVEL 27 MEQ/L (21-32); CHLORIDE LEVEL 105 MEQ/L (98-107); CREATININE FOR GFR 0.94 MG/DL (0.55-1.30); GLOMERULAR FILTRATION RATE > 60.0 (>58); GLUCOSE, FASTING 97 MG/DL (70-100); POTASSIUM SERUM 3.3 MEQ/L (3.5-5.1); SODIUM LEVEL 138 MEQ/L (136-145)
[2018-11-01] MEDS: HumaLOG INSULIN (NovoLOG) PER UNIT SC SCH ×4 (07:30→21:00)
[2018-11-01] MEDS ORDERED: POTASSIUM CHLORIDE 10 MEQ SR TABLET PO ONE (09:00)
[2018-11-01] MEDS: MIRALAX *UNIT DOSE* 17GM PACKET PO SCH (09:28)
[2018-11-01] MEDS: METAMUCIL (PSYLLIUM) PACKET PO SCH (09:29)
[2018-11-01] MEDS: PANTOPRAZOLE 40MG INJ (PROTONIX) (C9113) IV SCH (09:29)
[2018-11-01] MEDS: FIBER-CON 625 MG TAB PO SCH (09:29)
[2018-11-01] MEDS: ROSUVASTATIN 10 MG TAB (CRESTOR) PO SCH (09:30)
[2018-11-01] MEDS: hydroCHLOROthiazide 25 MG TAB PO SCH (09:30)
[2018-11-01 14:00] VITALS: BP 150/80
--- NOTE | 2018-11-01 16:55 | IPNPDOC ---
Text Note Date of Service The patient was seen on 11/01/18. NOTE SUBJECTIVE: Pt examined at bedside. Is feeling better today. No vomiting thus far this morning, and much less nausea. She is in better spiritis, but still having anxiety, requesting to be started on Xanax as she had been in the past, but then was stopped by her new PCP. Pt has minimal appetite today, but overall improving. Denies chest pain, shortness breath, nausea, vomiting, fevers, chills. OBJECTIVE PHYSICAL EXAMINATION: VITAL SIGNS: Please see below. GENERAL: NAD, sitting up in bed awake alert oriented speaking in complete sentences, A&Ox3, resting comfy HEENT: Moist mucous membranes , supple neck CARDIOVASCULAR: S1 S2 regular no additional heart sounds appreciated. RESPIRATORY: Clear to auscultation bilaterally. Equal chest rise ABDOMINAL: Bowel sounds present abdomen soft and non-tender. Nontender to palpation. Nondistended. No guarding, rebound, rigidity EXTREMITIES: No clubbing cyanosis or edema NEUROLOGICAL: Spontaneously moves all 4 extremities cranial 2 through 12 grossly intact no gross focal deficits appreciated PSYCHOLOGICAL: cheerful, but anxious about health, requesting anxiolytics LABORATORY DATA, MICROBIOLOGY: Please see below. IMAGING STUDIES: 10/27/2018 gastric imaging study:. The gastric activity is measured. At the end of 90 minutes, there is not significant emptying of the stomach. The same degree of activity is seen at the 90 minute felecia compared to the start of the exam. IMPRESSION: Findings compatible with gastroparesis. ASSESSMENT AND PLAN: This is a 43 yo F with uncontrolled diabetes, recently started on Ozempic 10/26, here for n/v that started 10/27, and worsening chronic RUQ abd pain. PROBLEMS: 1. Intractable nausea and vomiting. Multifactorial: Anxiety, possible IBS, diabetic gastroparesis with A1c 10, cyclic vomiting syndrome, Ozempic side effect. Improved today with supportive care, increasing fiber and stool softeners, and withholding GI meds, including antiemetics. Continue withholding GI meds with goal of giving her GI tract rest and time to recover. Given that she has somewhat of an appetite today, will advance from NPO to clear liquids and monitor. She has been advised to eat small portions and increase intake gradually. Continue IV PPI for gastric protection. 2. Anxiety: Patient reports being on Xanax in the past which was stopped by her new PCP. Will start Atarax and monitor. 3. Hypertension: Continue home hydrochlorothiazide. She is also been started on Cozaar during this hospitalization. Still uncontrolled bp. Increase BB dose, monitor. Pt asymptomatic. 4. Uncontrolled NIDDM2: Diagnosed in 2009, the patient noncompliant with meds and diabetes was never under control. Patient should avoid Ozempic as her GI issues may be a result of the medication. A1c 10. Patient counseled on lifestyle changes and medication compliance. Blood sugars in acceptable range on hospitalization. Continue ISS. 5. Leukocytosis: Normalized, likely reactionary to her ongoing nausea and vomiting. Monitor 6. Hypokalemia: Likely 2/2 vomiting. Repleted. 7. Hyperlipidemia: Continue home Crestor 8. GERD: Home PPI switch to IV twice a day given her acute GI symptoms 9. Marijuana use: Patient counseled on possibility of this worsening her GI symptoms and she will likely benefit from cessation. DVT prophylaxis: MERVIN/sequentials DISPOSITION: Pending clinical improvement. Advance diet slowly, possible dc home next 24-48 hrs. I saw and evaluated the patient. I agree with the findings and plan of care as documented in the above note VS,Alyssa, I+O VSAlyssa, I+O Laboratory Tests 11/01/18 05:16 Red Blood Count 4.44, Mean Corpuscular Volume 85.1, Mean Corpuscular Hemoglobin 29.3, Mean Corpuscular Hemoglobin Concent 34.4, Red Cell Distribution Width 12.1, Neutrophils (%) (Auto) 68.9 H, Lymphocytes (%) (Auto) 21.5 L, Monocytes (%) (Auto) 7.9 H, Eosinophils (%) (Auto) 0.8, Basophils (%) (Auto) 0.2, Neutro phils # (Auto) 6.3, Lymphocytes # (Auto) 2.0, Monocytes # (Auto) 0.7, Eosinophils # (Auto) 0.1, Basophils # (Auto) 0.0, Calcium Level 8.7 Vital Signs Date Time Temp Pulse Resp B/P (MAP) Pulse Ox O2 Delivery O2 Flow Rate FiO2 11/01/18 14:00 98.9 92 18 150/80 (103) 99 10/30/18 05:34 2.0 10/29/18 10:41 Room Air I&O- Last 24 Hours up to 6 AM 11/01/18 06:00 Intake Total 150 ml Output Total 1300 ml Balance -1150 ml PIERRE CARVAJAL DO Nov 01, 2018 16:55 JOAQUIN RICE MD Nov 03, 2018 17:44
[2018-11-01] MEDS ORDERED: MAGNESIUM CITRATE 300 ML BTL PO ONE (19:30)
[2018-11-01] MEDS: ONDANSETRON 4MG/2ML VIAL (J2405) IV SCH (19:49)
[2018-11-01] MEDS: ALPRAZolam 0.25 MG TAB PO PRN (21:39)
[2018-11-01] MEDS: LOSARTAN 50 MG TAB PO SCH (21:40)
[2018-11-01 22:00] VITALS: BP 146/99
[2018-11-02] MEDS: ONDANSETRON 4MG/2ML VIAL (J2405) IV SCH ×6 (01:41→20:31)
[2018-11-02 05:38] LABS: BASO % 0.3 % (0.0-1.0); EOS # 0.1 10^3/uL (0.0-0.50); EOS % 0.6 % (0.0-3.0); HEMATOCRIT 39.1 % (36.0-47.0); HEMOGLOBIN 13.8 g/dl (12.0-15.5); LYMPH # 1.7 10^3/uL (1.5-4.5); LYMPH % 21.7 % (24.0-44.0); MEAN CORPUSCULAR HEMOGLOBIN 29.7 pg (27.0-33.0); MEAN CORPUSCULAR HGB CONC 35.3 g/dl (32.0-36.5); MEAN CORPUSCULAR VOLUME 84.1 fl (80.0-96.0); MONO # 0.7 10^3/uL (0.0-0.8); MONO % 8.3 % (0.0-5.0); NEUTROPHILS # 5.4 10^3/uL (1.8-7.7); NEUTROPHILS % 68.7 % (36.0-66.0); PLATELET COUNT, AUTOMATED 285 10^3/uL (150-450); RED BLOOD COUNT 4.65 10^6/uL (4.00-5.40); WHITE BLOOD COUNT 7.8 10^3/uL (4.0-10.0)
[2018-11-02 05:57] LABS: BLOOD UREA NITROGEN 34 MG/DL (7-18); CALCIUM LEVEL 8.9 MG/DL (8.5-10.1); CARBON DIOXIDE LEVEL 27 MEQ/L (21-32); CHLORIDE LEVEL 103 MEQ/L (98-107); CREATININE FOR GFR 1.05 MG/DL (0.55-1.30); GLOMERULAR FILTRATION RATE > 60.0 (>58); GLUCOSE, FASTING 100 MG/DL (70-100); POTASSIUM SERUM 3.2 MEQ/L (3.5-5.1); SODIUM LEVEL 138 MEQ/L (136-145)
[2018-11-02 06:00] VITALS: BP 135/85
[2018-11-02] MEDS: HumaLOG INSULIN (NovoLOG) PER UNIT SC SCH ×5 (07:30→20:32)
[2018-11-02] MEDS ORDERED: POTASSIUM CHLORIDE 10 MEQ SR TABLET PO ONE (08:15)
[2018-11-02] MEDS: FIBER-CON 625 MG TAB PO SCH (09:27)
[2018-11-02] MEDS: PANTOPRAZOLE 40MG TAB (PROTONIX) PO SCH (09:27)
[2018-11-02] MEDS: hydroCHLOROthiazide 25 MG TAB PO SCH (09:28)
[2018-11-02] MEDS: MIRALAX *UNIT DOSE* 17GM PACKET PO SCH ×3 (09:28→13:58)
[2018-11-02] MEDS: METAMUCIL (PSYLLIUM) PACKET PO SCH ×3 (09:28→13:57)
[2018-11-02] MEDS: ROSUVASTATIN 10 MG TAB (CRESTOR) PO SCH (09:29)
--- NOTE | 2018-11-02 12:54 | IPNPDOC ---
Text Note Date of Service The patient was seen on 11/02/18. NOTE SUBJECTIVE: Pt examined at bedside with in room. Vomited yesterday after attempting clear liquid diet. Vomited again this am. Has no appetite. Anxiety better after starting Xanax yesterday. Pt had 1 small mucous BM today, without much improvement after. Denies chest pain, shortness breath, nausea, vomiting, fevers, chills. OBJECTIVE PHYSICAL EXAMINATION: VITAL SIGNS: Please see below. GENERAL: NAD, sitting up in bed awake alert oriented speaking in complete sentences, A&Ox3, resting comfy HEENT: Moist mucous membranes , supple neck CARDIOVASCULAR: S1 S2 regular no additional heart sounds appreciated. RESPIRATORY: Clear to auscultation bilaterally. Equal chest rise ABDOMINAL: Bowel sounds normoactive, soft, non-tender. Nondistended. No guarding, rebound, rigidity EXTREMITIES: No clubbing cyanosis or edema NEUROLOGICAL: Spontaneously moves all 4 extremities, no gross focal deficits appreciated PSYCHOLOGICAL: cheerful, no longer anxious LABORATORY DATA, MICROBIOLOGY: Please see below. IMAGING STUDIES: 10/27/2018 gastric imaging study:. The gastric activity is measured. At the end of 90 minutes, there is not significant emptying of the stomach. The same degree of activity is seen at the 90 minute felecia compared to the start of the exam. IMPRESSION: Findings compatible with gastroparesis. ASSESSMENT AND PLAN: This is a 43 yo F with uncontrolled diabetes, recently started on Ozempic 10/26, here for n/v that started 10/27, and worsening chronic RUQ abd pain. PROBLEMS: 1. Intractable nausea and vomiting. Multifactorial: Anxiety, possible IBS, diabetic gastroparesis with A1c 10, cyclic vomiting syndrome, Ozempic side effect. Had improved when made NPO, but nausea returned with attempting clear liquids yesterday. Patient encouraged to continue diet slowly and take in small portions. Continue supportive care, fiber and stool softeners. Continue PPI for gastric protection. Patient also had 1 small mucousy bowel movement earlier today, concern for possible IBD versus IBS. IBD panel ordered. Patient never had a colonoscopy or EGD in the past. Given her persistent symptoms, will consult Surgery. 2. Anxiety: Patient reports being on Xanax in the past which was stopped by her new PCP. Started on Atarax and Xanax, with positive response. 3. Hypertension: Continue home hydrochlorothiazide. She was started on Cozaar during this hospitalization, dose increased, with BP now controlled. 4. Uncontrolled NIDDM2: Diagnosed in 2009, the patient noncompliant with meds and diabetes was never under control. Patient should avoid Ozempic as her GI issues may be a result of the medication. A1c 10. Patient counseled on lifestyle changes and medication compliance. Blood sugars in acceptable range on hospitalization. Continue ISS. 5. Hypokalemia: Likely 2/2 vomiting. Repleted. 6. Hyperlipidemia: Continue home Crestor 7. GERD: Continue PPI 8. Marijuana use: Patient counseled on possibility of this worsening her GI symptoms and she will likely benefit from cessation. DVT prophylaxis: MERVIN/sequentials DISPOSITION: Pending clinical improvement. Advance diet slowly. Surgery consulted. I saw and evaluated the patient. I agree with the findings and plan of care as documented in the above note VS,Alyssa, I+O VS, Alyssa, I+O Laboratory Tests 11/02/18 05:18 Red Blood Count 4.65, Mean Corpuscular Volume 84.1, Mean Corpuscular Hemoglobin 29.7, Mean Corpuscular Hemoglobin Concent 35.3, Red Cell Distribution Width 12.1, Neutrophils (%) (Auto) 68.7 H, Lymphocytes (%) (Auto) 21.7 L, Monocytes (%) (Auto) 8.3 H, Eosinophils (%) (Auto) 0.6, Basophils (%) (Auto) 0.3, Neutrophils # (Auto) 5.4, Lymphocytes # (Auto) 1.7, Monocytes # (Auto) 0.7, Eosinophils # (Auto) 0.1, Basophils # (Auto) 0.0, Calcium Level 8.9 Vital Signs Date Time Temp Pulse Resp B/P (MAP) Pulse Ox O2 Delivery O2 Flow Rate FiO2 11/02/18 06:00 98.1 85 18 135/85 (102) 97 10/30/18 05:34 2.0 10/29/18 10:41 Room Air I&O- Last 24 Hours up to 6 AM 11/02/18 06:00 Intake Total 660 ml Output Total 1850 ml Balance -1190 ml PIERRE CARVAJAL DO Nov 02, 2018 12:54 JOAQUIN RICE MD Nov 03, 2018 17:46
[2018-11-02 14:00] VITALS: BP 160/100
[2018-11-02] MEDS ORDERED: IBUPROFEN 400 MG TAB PO PRN (14:45)
[2018-11-02] MEDS: ALPRAZolam 0.25 MG TAB PO PRN (14:58)
[2018-11-02] MEDS ORDERED: hydrOXYzine 10 MG TAB PO PRN (16:45)
[2018-11-02 20:32] VITALS: BP 142/80
[2018-11-02] MEDS: LOSARTAN 50 MG TAB PO SCH (20:32)
[2018-11-02 22:00] VITALS: BP 142/80
[2018-11-03] MEDS: ONDANSETRON 4MG/2ML VIAL (J2405) IV SCH ×4 (00:38→12:11)
[2018-11-03 06:00] VITALS: BP 138/78
[2018-11-03 06:04] LABS: BASO % 0.4 % (0.0-1.0); EOS # 0.3 10^3/uL (0.0-0.50); EOS % 3.8 % (0.0-3.0); HEMATOCRIT 39.1 % (36.0-47.0); LYMPH # 1.7 10^3/uL (1.5-4.5); LYMPH % 24.3 % (24.0-44.0); MEAN CORPUSCULAR HGB CONC 35.8 g/dl (32.0-36.5); MEAN CORPUSCULAR VOLUME 83.9 fl (80.0-96.0); MONO # 0.8 10^3/uL (0.0-0.8); MONO % 11.5 % (0.0-5.0); NEUTROPHILS % 59.6 % (36.0-66.0); PLATELET COUNT, AUTOMATED 302 10^3/uL (150-450); RED BLOOD COUNT 4.66 10^6/uL (4.00-5.40); WHITE BLOOD COUNT 6.8 10^3/uL (4.0-10.0)
[2018-11-03 06:30] LABS: CALCIUM LEVEL 8.8 MG/DL (8.5-10.1); CREATININE FOR GFR 1.12 MG/DL (0.55-1.30); GLOMERULAR FILTRATION RATE 56.5 (>58); POTASSIUM SERUM 3.6 MEQ/L (3.5-5.1)
[2018-11-03] MEDS: PANTOPRAZOLE 40MG TAB (PROTONIX) PO SCH (08:12)
[2018-11-03] MEDS: FIBER-CON 625 MG TAB PO SCH (08:13)
[2018-11-03] MEDS: hydroCHLOROthiazide 25 MG TAB PO SCH (08:13)
[2018-11-03] MEDS: ROSUVASTATIN 10 MG TAB (CRESTOR) PO SCH (08:13)
[2018-11-03] MEDS: MIRALAX *UNIT DOSE* 17GM PACKET PO SCH (09:00)
[2018-11-03] MEDS: METAMUCIL (PSYLLIUM) PACKET PO SCH (10:23)
[2018-11-03] MEDS: ALPRAZolam 0.25 MG TAB PO PRN (10:25)
[2018-11-03] MEDS: HumaLOG INSULIN (NovoLOG) PER UNIT SC SCH (12:11)
[2018-11-03] MEDS ORDERED: PANT40TA3 PO (13:22)
[2018-11-03] MEDS ORDERED: FLEEENE12 PR (13:22)
[2018-11-03] MEDS ORDERED: ALPR0.25 PO ×2 (13:22→13:32)
[2018-11-03] MEDS ORDERED: COZA50TA PO (13:22)
[2018-11-03] MEDS ORDERED: FIBE62TA PO (13:22)
[2018-11-03 14:00] VITALS: BP 130/91
--- NOTE | 2018-11-03 15:25 | DS.PDOC ---
Discharge Summary General Date of Admission Nov 01, 2018 at 11:37 Attending Physician: JOAQUIN RICE MD Specialist/Consultants Involve: POONAM STATON DO Discharge Summary DISCHARGE DIAGNOSIS: Diabetic gastroparesis Possible IBS Cyclic vomiting syndrome Ozempic-induced nausea & vomiting Uncontrolled anxiety SECONDARY DIAGNOSIS: 1. Hypertension 2. Uncontrolled NIDDM 2 3. Hyperlipidemia 4. GERD 5. Marijuana use PROCEDURES PERFORMED DURING STAY: [None]. CONSULTANTS: Surgeon Dr. Staton HOSPITAL COURSE: . DISCHARGE MEDICATIONS: Please see below. ALLERGIES: Please see below. SUBJECTIVE: Patient examined at bedside with in room. States she's feeling much better. Able to hold down food. Just learned that he runcle this am, but states she is no longer anxious and feels it is under control since restarting Xanax. No abdominal pain or mucous in her stools. Otherwise patient denies chest pain, shortness, breath, vomiting, fevers, chills OBJECTIVE: PHYSICAL EXAMINATION: VITAL SIGNS: Please see below. GENERAL: Pleasant, A&Ox3, sitting up in bed awake alert oriented speaking in complete sentences no acute distress HEENT: Moist mucous membranes no elevation and CVP CARDIOVASCULAR: S1 S2 regular no additional heart sounds appreciated. RESPIRATORY: Clear to auscultation bilaterally. ABDOMINAL: Bowel sounds present abdomen soft and non-tender EXTREMITIES: No clubbing, cyanosis, edema NEUROLOGICAL: Spontaneously moves all 4 extremities cranial 2 through 12 grossly intact, no gross focal deficits appreciated PSYCHOLOGICAL: Appropriate LABORATORY DATA, MICROBIOLOGY: Please see below. IMAGING STUDIES: * 10/29/2018 CXR: Negative PA and lateral chest. .There is no interval change. There is no free subdiaphragmatic air. * 10/29/2018 CTA: Negative CT study of the chest. There is no thoracic aortic dissection. The ascending aorta is normal diameter. There are no pulmonary emboli. * 10/29/2018 CT abdomen and pelvis: There is no evidence of abdominal aortic dissection or aneurysm. No periaortic hematoma. Otherwise, negative CT of the abdomen and pelvis. * 10/30/2018 gastric emptying study: The gastric activity is measured. At the end of 90 minutes, there is not significant emptying of the stomach. The same degree of activity is seen at the 90 minute felecia compared to the start of the exam. IMPRESSION: Findings compatible with gastroparesis. DVT prophylaxis ordered: mechanical ASSESSMENT AND PLAN: This is a 43-year-old female with intractable nausea and vomiting, and worsening chronic right upper quadrant pain over the past month. DISPOSITION: home DISCHARGE CONDITION: Improved and Stable PROGNOSIS: good FOLLOW UP: pcp 1 week, surgery 2-3 weeks ACTIVITY: As prior to admission DIET: BRAT, low fat, high soluble fiber, consistent carb TIME SPENT ON DISCHARGE: 50 minutes Vital Signs/I&Os Vital Signs Date Time Temp Pulse Resp B/P (MAP) Pulse Ox O2 Delivery O2 Flow Rate FiO2 11/03/18 14:00 98.4 91 18 130/91 (104) 99 10/30/18 05:34 2.0 10/29/18 10:41 Room Air I&O- Last 24 Hours up to 6 AM 11/03/18 06:00 Intake Total 1195 ml Output Total 1500 ml Balance -305 ml Laboratory Data Labs 24H Laboratory Tests 2 11/02/18 16:54: Bedside Glucose (Misc Panel) 107H 11/02/18 19:57: Bedside Glucose (Misc Panel) 125H 11/03/18 05:32: Immature Granulocyte % (Auto) 0.4, White Blood Count 6.8, Red Blood Count 4.66, Hemoglobin 14.0, Hematocrit 39.1, Mean Corpuscular Volume 83.9, Mean Corpuscular Hemoglobin 30.0, Mean Corpuscular Hemoglobin Concent 35.8, Red Cell Distribution Width 12.2, Platelet Count 302, Neutrophils (%) (Auto) 59.6, Lymphocytes (%) (Auto) 24.3, Monocytes (%) (Auto) 11.5H, Eosinophils (%) (Auto) 3.8H, Basophils (%) (Auto) 0.4, Neutrophils # (Auto) 4.0, Lymphocytes # (Auto) 1 .7, Monocytes # (Auto) 0.8, Eosinophils # (Auto) 0.3, Basophils # (Auto) 0.0, Nucleated Red Blood Cells % (auto) 0.0, Anion Gap 8, Glomerular Filtration Rate 56.5L, Blood Urea Nitrogen 24H, Creatinine 1.12, Sodium Level 136, Potassium Level 3.6, Chloride Level 101, Carbon Dioxide Level 27, Calcium Level 8.8 11/03/18 12:01: Bedside Glucose (Misc Panel) 139H CBC/BMP Laboratory Tests 11/03/18 05:32 Red Blood Count 4.66, Mean Corpuscular Volume 83.9, Mean Corpuscular Hemoglobin 30.0, Mean Corpuscular Hemoglobin Concent 35.8, Red Cell Distribution Width 12. 2, Neutrophils (%) (Auto) 59.6, Lymphocytes (%) (Auto) 24.3, Monocytes (%) (Auto) 11.5 H, Eosinophils (%) (Auto) 3.8 H, Basophils (%) (Auto) 0.4, Neutrophils # (Auto) 4.0, Lymphocytes # (Auto) 1.7, Monocytes # (Auto) 0.8, Eosinophils # (Auto) 0.3, Basophils # (Auto) 0.0, Calcium Level 8.8 FSBS Laboratory Tests Test 11/02/18 16:54 11/02/18 19:57 11/03/18 12:01 Range/Units Bedside Glucose (Misc Panel) 107 125 139 70-105 MG/DL Discharge Medications Scheduled Calcium Polycarbophil (Fiber-Lax) 625 Mg Tablet, 2 EA PO DAILY Hydrochlorothiazide (Hydrochlorothiazide) 25 Mg Tablet, 25 MG PO DAILY, (Reported) Losartan Potassium (Cozaar) 50 Mg Tablet, 50 MG PO QHS Multivitamin (Multivitamins) 1 Each Capsule, 1 CAP PO DAILY, (Reported) Pantoprazole Sodium (Pantoprazole Sodium) 40 Mg Tablet.dr, 40 MG PO DAILY Psyllium Husk (with Sugar) (Metamucil Powder) 575 Gm Powder, 1 PKT PO DAILY, (Reported) Rosuvastatin Calcium (Rosuvastatin Calcium) 5 Mg Tablet, 5 MG PO DAILY, (Reported) Scheduled PRN Alprazolam (Alprazolam) 0.25 Mg Tablet, 0.25 MG PO Q8HP PRN for ANXIETY Aspirin (Aspirin) 325 Mg Tablet, 650 MG PO DAILY PRN for PAIN, (Reported) Ibuprofen (Ibu-200) 200 Mg Tablet, 400 MG PO Q6H PRN for PAIN, (Reported) Sodium Phosphate,Barbour-Dibasic (Fleet Enema) 133 Ml Enema, [address] DAILYPRN PRN for CONSTIPATION Allergies Coded Allergies: acetaminophen (Verified Allergy, Intermediate, RASH, 10/29/18) codeine (Verified Allergy, Intermediate, rash, itchy, 10/29/18) hydrocodone (Verified Allergy, Intermediate, RASH, 10/29/18) PIERRE CARVAJAL DO Nov 03, 2018 15:25
== END 2018-11-03 14:46 | disposition home or self-care (01) | DRG 48 ==
LOC: M ED 07:23 → M ED INP 12:19 → M MS4PR 14:55 → M MSPAV 10-31 15:19 → OBSVTOIN 11-01 11:37
PROVIDERS: ADMIT Internal Medicine Nephrology; ATTEND Internal Medicine
DX: E11.43 Type 2 diabetes mellitus with diabetic autonomic (poly)neuropathy (principal); N17.9 Acute kidney failure, unspecified; E87.2 Acidosis; K21.9 Gastro-esophageal reflux disease without esophagitis; E78.5 Hyperlipidemia, unspecified; F41.9 Anxiety disorder, unspecified; Z79.899 Other long term (current) drug therapy; Z88.5 Allergy status to narcotic agent; Z88.8 Allergy status to other drugs, medicaments and biological substances; I10 Essential (primary) hypertension; I25.2 Old myocardial infarction; Z91.14 Patient's other noncompliance with medication regimen; F12.90 Cannabis use, unspecified, uncomplicated; E87.6 Hypokalemia; D72.829 Elevated white blood cell count, unspecified

== ENCOUNTER → 2020-02-03 | Outpatient (REF) | payer BC ==
[~2020-02-03] MED LIST changes: +ALPR0.25 PO; +BAYE325T12 PO; +COZA50TA PO; +FIBE62TA PO; +FLEEENE12 PR; +HYDR25TAB PO; +IBUP200T45 PO; +META28.32 PO; +MULTCAP PO; +OZEM2INJ INJ; +PANT40TA29 PO; +ROSU5TAB5 PO
== END ==
LOC: M LAB REF 12:04
PROVIDERS: ATTEND Nurse Practitioner Adult Health
DX: E83.52 Hypercalcemia (principal)

== ENCOUNTER 2020-05-04 12:42 | Inpatient (IN) | payer BC, OTHER ==
[~2020-05-04] VITALS: Ht 160 cm; Wt 62.4 kg
[~2020-05-04 12:42] MED LIST changes: +HYDR-3490 PO; -HYDR25TAB PO
[2020-05-04] MEDS ORDERED: LANTINJ4 SC (13:16)
[2020-05-04] MEDS ORDERED: INSU100I16 SC (13:16)
[2020-05-04] MEDS ORDERED: NS 1,000 ML IV ONE (14:30)
[2020-05-04] MEDS ORDERED: METOCLOPRAMIDE INJ 10MG/2ML VIAL (J2765 PER 1) IV ONE (14:30)
[2020-05-04 14:38] LABS: BASO % 0.1 % (0.0-1.0); EOS % 0.1 % (0.0-3.0); HEMATOCRIT 39.5 % (36.0-47.0); HEMOGLOBIN 13.2 g/dl (12.0-15.5); LYMPH # 0.9 10^3/uL (1.5-5.0); LYMPH % 6.6 % (24.0-44.0); MEAN CORPUSCULAR HEMOGLOBIN 28.4 pg (27.0-33.0); MEAN CORPUSCULAR HGB CONC 33.4 g/dl (32.0-36.5); MEAN CORPUSCULAR VOLUME 84.9 fl (80.0-96.0); MONO % 7.4 % (0.0-5.0); NEUTROPHILS # 11.9 10^3/uL (1.5-8.5); NEUTROPHILS % 84.8 % (36.0-66.0); PLATELET COUNT, AUTOMATED 260 10^3/uL (150-450); RED BLOOD COUNT 4.65 10^6/uL (4.00-5.40)
[2020-05-04 14:59] LABS: ALBUMIN 4.5 GM/DL (3.2-5.2); ALT/SGPT 23 U/L (12-78); BILIRUBIN,DIRECT 0.2 MG/DL (0.0-0.2); BILIRUBIN,TOTAL 0.6 MG/DL (0.2-1.0); LIPASE 120 U/L (73-393); TOTAL PROTEIN 8.3 GM/DL (6.4-8.2)
[2020-05-04 15:35] LABS: VENOUS BASE EXCESS -2.7 (-2.0-2.0); VENOUS HCO3 20.9 MEQ/L (23.0-27.0); VENOUS PH 7.419 UNITS (7.330-7.430); VENOUS TOTAL CO2 21.9 MEQ/L (24.0-28.0)
[2020-05-04 15:37] LABS: BLOOD UREA NITROGEN 38 MG/DL (7-18); CARBON DIOXIDE LEVEL 25 MEQ/L (21-32); CHLORIDE LEVEL 104 MEQ/L (98-107); CREATININE FOR GFR 1.27 MG/DL (0.55-1.30); GLOMERULAR FILTRATION RATE 48.4 (>58); GLUCOSE, FASTING 248 MG/DL (70-100); POTASSIUM SERUM 3.7 MEQ/L (3.5-5.1); SODIUM LEVEL 141 MEQ/L (136-145)
[2020-05-04 15:44] LABS: HCG, SERUM QUALITATIVE NEGATIVE (NEGATIVE)
[2020-05-04] MEDS ORDERED: PROMETHAZINE INJ 25 MG/ML VIAL (J2550) IV ONE (15:45)
[2020-05-04] MEDS ORDERED: REGL10TA6 PO (18:04)
[2020-05-04 18:07] LABS: AMPHETAMINES LEVEL URINE NEGATIVE (NEGATIVE); BARBITURATES URINE NEGATIVE (NEGATIVE); BENZODIAZEPINES URINE POSITIVE (NEGATIVE); CANNABINOIDS URINE POSITIVE (NEGATIVE); COCAINE METABOLITE URINE NEGATIVE (NEGATIVE); METHADONE URINE NEGATIVE (NEGATIVE); OPIATES URINE NEGATIVE (NEGATIVE); PHENCYCLIDINE URINE NEGATIVE (NEGATIVE)
[2020-05-04] MEDS ORDERED: PROM25SU3 PR (18:07)
[2020-05-04] MEDS ORDERED: HALOPERIDOL 5MG/ML VIAL (J1630 PER 1) IV ONE (18:30)
--- NOTE | 2020-05-04 19:28 | REP ---
INDICATION: vomiting. COMPARISON: Comparison chest x-ray October 29, 2018.. TECHNIQUE: Three views, acute abdominal series. FINDINGS: Upright chest radiograph is unremarkable. There is no evidence of infiltrate or free subdiaphragmatic air. Heart size is normal. Pulmonary vasculature is not increased. Pleural angles are sharp. Supine and erect views of the abdomen demonstrate a normal bowel gas pattern. The psoas margins and the flank stripes are intact. There is no evidence of mass, organomegaly, or pathologic calcification. IMPRESSION: Negative acute abdominal series. <Electronically signed by Godfrey Dang > 05/04/201923
[2020-05-04] MEDS ORDERED: GLUCAGON INJ 1MG VIAL SC PRN (19:45)
[2020-05-04] MEDS ORDERED: ACETAMINOPHEN TAB 650MG DOSE (2X325MG) PO PRN (19:45)
[2020-05-04] MEDS ORDERED: GLUCOSE 4GM CHEW TABLET PO PRN (19:45)
[2020-05-04] MEDS ORDERED: DEXTROSE 50% 50 ML SYRINGE IV PRN (19:45)
[2020-05-04] MEDS ORDERED: METOCLOPRAMIDE INJ 10MG/2ML VIAL (J2765 PER 1) IV PRN (19:45)
[2020-05-04 20:00] LABS: RSV AMPLIFICATION NEGATIVE (NEGATIVE)
[2020-05-04 20:54] LABS: HEMOGLOBIN A1c 7.6 %
[2020-05-04] MEDS ORDERED: NS 1,000 ML IV SCH (21:15)
[2020-05-04] MEDS: LEVEMIR (INSULIN DETEMIR) 1 UNITS/0.01ML SC SCH (22:29)
[2020-05-04] MEDS: HumaLOG INSULIN (NovoLOG) PER UNIT SC SCH (22:30)
[2020-05-04] MEDS ORDERED: diphenhydrAMINE 50MG/ML VIAL (J1200) IV ONE (22:45)
[2020-05-04] MEDS: PANTOPRAZOLE 40MG VIAL (C9113 PER 1) IV SCH (23:32)
[2020-05-04] MEDS: ONDANSETRON 4MG/2ML VIAL IV PRN (23:32)
[2020-05-04 23:33] VITALS: BP 152/91
--- NOTE | 2020-05-04 23:34 | HPEPDOC ---
[facility] Medical History & Physical Date of Admission May 04, 2020 Date of Service: May 04, 2020 Primary Care Physician: Lanie Dubon Attending Physician: HANSA HASSAN MD History and Physical CHIEF COMPLAINT: Nausea/Vomiting HISTORY OF PRESENT ILLNESS: Patient is a 45 year old female with a past medical history significant for DMII, HTN, GERD, and NSTEMI due to oral contraceptive use who presented to the [facility] ER with complaint of nausea and vomiting since Monday. She stated that her symptoms came on suddenly and she has not been able to hold anything down since Monday. She states that this has happened to her in the past and typically occurs after starting a medication. She stated that she had taken one of her friends Addradhikal a couple of days before her symptoms. She denies any sick contacts or travel. She denies any fevers, chills, diarrhea, or constipation. She states that a friend of hers is a PA and had given her IV fluids yesterday however she is still unable to tolerate any food or water. On presentation to the ER the patient was vitally stable. She was in hypertensive. She had a slight leukocytosis but otherwise labs were unrevealing. Abdominal X-ray did not demonstrate any acute pathology. Patient was given Phenergan, Reglan, and a NS bolus. Hospitalist service was consulted and the patient was admitted for further evaluation and management PAST MEDICAL HISTORY: 1. Diabetes Mellitus Type 2 2. Hypertension 3. Anxiety 4. Marijuana use 5. Hx of NSTEMI from OCP use 6. GERD PAST SURGICAL HISTORY: 1. Caesarean Seection 2. Cardiac Catheterization SOCIAL HISTORY: Patient is and lives at home with her . She denies tobacco use. She admits to social drinking. She denies an IV drug use. She admits to marijuana use. She states she smokes marijuana daily FAMILY HISTORY: Significant for diabetes and heart disease ALLERGIES: Please see below. REVIEW OF SYSTEMS: CONSTITUTIONAL: Denies fevers, chills, unintentional weightloss or weight gain. Denies night sweats HEENT: Denies dysphagia, odynophagia. Denies sore throat. Denies headache CARDIOVASCULAR: Denies chest pain, palpitations or feelings of the heart racing RESPIRATORY: Denies shortness of breath. Denies cough or wheeze GASTROINTESTINAL: Admits to nausea and vomiting. Admits to abdominal pain. Denies diarrhea or constipation. Denies bloody or dark tarry stools. Denies hematemesis GENITOURINARY: Denies dysuria or increased frequency/urgency SKIN: Denies rashes or lesions MUSCULOSKELETAL: Denies muscle weakness or pain NEUROLOGICAL: Denies changes in gait or speech PSYCHIATRIC: Admits to anxiety. Denies depression ENDOCRINE: Denies heat intolerance or cold intolerance. Admits to diabetes HEMATOLOGIC/LYMPHATIC: Denies easy bleeding or bruising. Denies history of DVT or PE HOME MEDICATIONS: Please see below. PHYSICAL EXAMINATION: VITAL SIGNS: Temperature 99.6, pulse 83, respiratory rate 16, blood pressure 152/73, pulse oximetry 100% on room air. GENERAL APPEARANCE: Patient is awake, alert, and oriented. She appears uncomfortable. She is not in acute distress HEENT: Atraumatic, normocephalic. eyes are nonicteric. Trachea is midline. Muco us membranes are pink and moist CARDIOVASCULAR: Normal S1, S2. Regular rate and rhythm. No clicks rubs or murmurs LUNGS: Clear vesicular breath sound bilaterally with good respiratory effort. No wheezes, rhonchi or rales ABDOMEN: Soft, nondistended. Mild tenderness in the RLQ. No rebound tenderness or guarding. Slightly hypoactive bowel sounds EXTREMITIES: No edema. Full and equal pulses in upper and lower extremities NEUROLOGICAL: No focal neurological deficits PSYCHIATRIC: Mood and affect appear appropriate LABORATORY DATA: See below. IMAGING: INDICATION: vomiting. COMPARISON: Comparison chest x-ray October 29, 2018.. TECHNIQUE: Three views, acute abdominal series. FINDINGS: Upright chest radiograph is unremarkable. There is no evidence of infiltrate or free subdiaphragmatic air. Heart size is normal. Pulmonary vasculature is not increased. Pleural angles are sharp. Supine and erect views of the abdomen demonstrate a normal bowel gas pattern. The psoas margins and the flank stripes are intact. There is no evidence of mass, organomegaly, or pathologic calcification. IMPRESSION: Negative acute abdominal series. <Electronically signed by Godfrey Dang > 05/04/201923 MICROBIOLOGY: Please see below. ASSESSMENT: Patient is a 45 year old female with a past medical history significant for Diabetes mellitus type 2, HTN, GERD, NSTEMI from OCP use, and marijuana use who presented to the [facility] ER with complaint of intractable vomiti ng. . PLAN: 1. Intractable Nausea and Vomiting -Likely secondary to gastroparesis vs cyclic vomiting syndrome. Patient had similar presentation on 11/01/18. At the time she did receive a gastric emptying study which demonstrated findings compatible with gastroparesis. Additionally the patient seems to develop intractable nausea and vomiting with new medications. Unlikely to be related to her Adderall use. She does use marijuana almost daily and could certainly be cyclic vomiting syndrome. Unusual to develop gastroparesis without having peripheral neuropathy first. Patient also denies early satiety or postprandial fullness. -Will continue Zofran. Will start Reglan in the setting of possible gastroparesis. -Protonix 40mg IV q24h -Clear liquids diet -Will hold off on IV fluids. Patient is currently hypertensive and does not appear hypovolemic. She is tolerating small sips of water 2, Diabetes Mellitus Type 2 w/ Chronic insulin use -HgbA1C of 7.6. Patient currently on long-acting and sliding scale at home. States she can not take non-insulin medications as she develops nausea and vomiting. States she took Ozempic previously and developed nausea and vomiting -Sliding scale insulin w/ ACHS coverage. -Levemir 15 units BID 3. Gastroparesis -Patient had gastric emptying study previously which suggested gastroparesis. Severity is unclear people typically develop peripheral neuropathy before autonomic. -Consider GI referral outpatient for endoscopy 4. Severe Asymptomatic Hypertension -Patient presented to ER with BP of 211/105. She was asymptomatic. She was given her home Hydrochlorothiazide. She remains slightly hypertensive however the patient does appear anxious and has been dry heaving. -Will monitor -Continue home medications 5. ASCVD -Continue statin 6. DVT prophylaxis -TEDs and Sequentials Vital Signs Vital Signs Date Time Temp Pulse Resp B/P (MAP) Pulse Ox O2 Delivery O2 Flow Rate FiO2 05/04/20 19:45 81 16 160/77 (104) 100 Room Air 05/04/20 12:43 97.6 Laboratory Data Labs 24H Laboratory Tests 2 05/04/20 12:52: Bedside Glucose (Misc Panel) 188H 05/04/20 14:17: Immature Granulocyte % (Auto) 1.0, Neutrophils (%) (Auto) 84.8H, Lymphocytes (%) (Auto) 6.6L, Monocytes (%) (Auto) 7.4H, Eosinophils (%) (Auto) 0.1, Basophils (%) (Auto) 0.1, Neutrophils # (Auto) 11.9H, Lymphocytes # (Auto) 0.9L, Monocytes # (Auto) 1.0H, Eosinophils # (Auto) 0.0, Basophils # (Auto) 0.0, Nucleated Red Blood Cells % (auto) 0.0, Anion Gap 12, Glomerular Filtration Rate 48.4L, Estimated Mean Plasma Glucose 171H, Hemoglobin A1c 7.6, Calcium Level 10.0, Total Bilirubin 0.6, Direct Bilirubin 0.2, Aspartate Amino Transf (AST/SGOT) 15, Alanine Aminotransferase (ALT/SGPT) 23, Alkaline Phosphatase 69, Total Protein 8 .3H, Albumin 4.5, Albumin/Globulin Ratio 1.2, Lipase 120, Human Chorionic Gonadotropin, Qual NEGATIVE 05/04/20 15:28: Blood Gas Bicarbonate Standard 22.0, Venous Blood pH 7.419, Venous Blood Partial Pressure CO2 33.0L, Venous Blood Partial Pressure O2 52.0H, Venous Blood Total C arbon Dioxide 21.9L, Venous Blood HCO3 20.9L, Venous Blood Oxygen Saturation 88.0H, Venous Blood Base Excess -2.7L 05/04/20 17:29: Urine Opiates Screen NEGATIVE, Urine Methadone Screen NEGATIVE, Urine Barbiturates Screen NEGATIVE, Urine Phencyclidine Screen NEGATIVE, Urine Amphe tamines Screen NEGATIVE, Urine Benzodiazepines Screen POSITIVEH, Urine Cocaine Metabolite Screen NEGATIVE, Urine Cannabinoids Screen POSITIVEH 05/04/20 19:11: Coronavirus (COVID-19)(PCR) NEGATIVE, Influenza Type A (RT-PCR) NEGATIVE, Influenza Type B (RT-PCR) NEGATIVE, Respiratory Syncytial Virus (PCR) NEGATIVE CBC/BMP Laboratory Tests 05/04/20 14:17 Home Medications Scheduled Hydrochlorothiazide (Hydrochlorothiazide) 25 Mg Tablet, 25 MG PO DAILY Insulin Aspart (Insulin Aspart Flexpen) 100 Unit/1 Ml Insuln.pen, 1 DOSE SC AC PER SLIDING SCALE Insulin Glargine,Hum.rec.anlog (Lantus Solostar) 100 Unit/1 Ml Insuln.pen, 43 UNIT SC DAILY Rosuvastatin Calcium (Rosuvastatin Calcium) 5 Mg Tablet, 5 MG PO DAILY Scheduled PRN Ibuprofen (Ibu-200) 200 Mg Tablet, 400 MG PO Q6H PRN for PAIN Metoclopramide HCl (Reglan) 10 Mg Tablet, 10 MG PO Q6H PRN for NAUSEA Promethazine HCl (Promethegan) 25 Mg Supp.rect, 25 MG NE Q8H PRN for NAUSEA Allergies Coded Allergies: codeine (Verified Allergy, Intermediate, rash, itchy, 10/29/18) hydrocodone (Verified Allergy, Intermediate, RASH, 10/29/18) A-FIB/CHADSVASC A-FIB History Current/History of A-Fib/PAF?: No GME ATTESTATION GME ATTESTATION My faculty preceptor for this patient encounter was physically present during the encounter and was fully available. All aspects of the patient interview, examination, medical decision making process, and medical care plan development were reviewed and approved by the faculty preceptor. The faculty preceptor is aware and concurs with the plan as stated in the body of this note and will attest to such by his/her cosignature. ATTENDING NOTE TIME OF SERVICE 840PM is a 45 yr old w a hx of DM2 and HTN who presented w c/o n/v and abdominal pain and will be admitted for management of intractable n/v 2/2 gastroparesis. #Nausea and vomiting 2/2 gastroparesis. The gastric emptying study done in October of 2018 confirmed gastroparesis. Plan: c/w anti-emetics # SIRs FR of 104 and leukocytosis Plan: f/u lactic acid and blood cx / bc she has abd pain will order UA to r/o UTI Rest per 's H&P ABBEY ROBERTSON DO May 04, 2020 21:21 HANSA HASSAN MD May 05, 2020 01:53
[2020-05-05] MEDS: ONDANSETRON 4MG/2ML VIAL IV PRN (03:44)
[2020-05-05 03:51] LABS: APPEARANCE, URINE CLEAR (CLEAR); BACTERIA, URINE AUTO NEGATIVE (NEGATIVE); BILIRUBIN, URINE AUTO NEGATIVE (NEGATIVE); BLOOD, URINE BLOOD NEGATIVE (NEGATIVE); COLOR, URINE YELLOW (YELLOW); GLUCOSE, URINE (UA) AUTO 1+ mg/dL (NEGATIVE); KETONE, URINE AUTO 1+ mg/dL (NEGATIVE); LEUKOCYTE ESTERASE, URINE AUTO NEGATIVE (NEGATIVE); MUCUS, URINE SMALL (NEGATIVE); NITRITE, URINE AUTO NEGATIVE (NEGATIVE); PROTEIN, URINE AUTO 2+ mg/dL (NEGATIVE); RBC, URINE AUTO 0 /HPF (0-3); SPECIFIC GRAVITY URINE AUTO 1.024 (1.002-1.035); SQUAMOUS EPITHELIAL CELL UR AU 3 /HPF (0-6); UROBILINOGEN, URINE AUTO 0.2 mg/dL (0.0-2.0); WBC, URINE AUTO 0 /HPF (0-3)
[2020-05-05] MEDS ORDERED: KETOROLAC 30 MG/ML 1ML VIAL IV ONE (06:45)
[2020-05-05 07:20] LABS: HEMATOCRIT 38.2 % (36.0-47.0); HEMOGLOBIN 12.9 g/dl (12.0-15.5); MEAN CORPUSCULAR HEMOGLOBIN 28.8 pg (27.0-33.0); MEAN CORPUSCULAR HGB CONC 33.8 g/dl (32.0-36.5); MEAN CORPUSCULAR VOLUME 85.3 fl (80.0-96.0); PLATELET COUNT, AUTOMATED 292 10^3/uL (150-450); RED BLOOD COUNT 4.48 10^6/uL (4.00-5.40); WHITE BLOOD COUNT 15.8 10^3/uL (4.0-10.0)
[2020-05-05] MEDS: HumaLOG INSULIN (NovoLOG) PER UNIT SC SCH ×4 (07:30→20:44)
[2020-05-05 07:51] LABS: CALCIUM LEVEL 9.3 MG/DL (8.5-10.1); CREATININE FOR GFR 1.06 MG/DL (0.55-1.30); GLOMERULAR FILTRATION RATE 59.7 (>58); MAGNESIUM LEVEL 2.1 MG/DL (1.8-2.4); POTASSIUM SERUM 3.4 MEQ/L (3.5-5.1)
[2020-05-05] MEDS: ROSUVASTATIN 10 MG TAB (CRESTOR) PO SCH (09:12)
[2020-05-05] MEDS: LEVEMIR (INSULIN DETEMIR) 1 UNITS/0.01ML SC SCH ×2 (09:12→21:00)
[2020-05-05] MEDS ORDERED: PILL CUTTER 1 EACH XX PRN (09:15)
[2020-05-05] MEDS: ALPRAZolam 0.5 MG TAB PO PRN ×2 (09:46→21:10)
[2020-05-05 14:00] VITALS: BP 180/100
[2020-05-05] MEDS ORDERED: **hydrALAZINE HCL** 25 MG TAB PO ONE (14:30)
[2020-05-05 14:42] VITALS: BP 180/100
--- NOTE | 2020-05-05 15:10 | IPNPDOC ---
Text Note Date of Service The patient was seen on 05/05/20. NOTE Subjective: Patient was seen and examined this morning at bedside. Patient tells me that she is feeling a little bit better than when she came in. Her nausea and vomiting is persistent but have improved and decreased in frequency. There is no acute overnight events. Patient denies any chest pain or shortness of breath. Objective: Constitutional: Awake and alert, in mild apparent distress due to nausea ENT: Sclera are clear. Mucosa is moist. Respiratory: Lungs CTA bilaterally. No respiratory distress. No use of accessory muscles. Cardiovascular: RRR S1 and S2 are normal, no murmur Gastrointestinal: Abdomen is soft, non distended, non tender, BS present. Musculoskeletal: No edema. Neurologic: No focal neurological deficit. Mental Status: A&O x3, normal affect Skin: Warm, dry Assessment/plan: Patient is a 45 year old female with a past medical history significant for Diabetes mellitus type 2, HTN, GERD, NSTEMI from OCP use, and marijuana use who presented to the [facility] ER with complaint of intractable vomiting. Admitted for further medical management. # Intractable nausea vomiting: Likely secondary to cannabis hyperemesis syndrome versus gastroparesis. Patient is a daily cannabis user and has been using more frequently over the past few days. She also has a known confirmed history of gastroparesis patient denies early satiety or postprandial fullness which goes against gastroparesis. Continue Zofran and Reglan. Protonix. CLD. - Referral to GI upon discharge for outpatient endoscopy # DM and some dependent: ISS. Levemir 15 units BID. Frequent Accu-Cheks. Hypoglycemic precautions. #Uncontrolled hypertension: Patient has not been compliant with her medication over the past several days due to nausea and vomiting. Currently able to tolerate by mouth medications. Continue home medications. Titrate as needed. #CAD: Continue statin start aspirin # DVT prophylaxis: SCDs A Yousef Hospitalist Alyssa OWUSU, I+O VSAlyssa I+O Laboratory Tests 05/05/20 06:36 Vital Signs Date Time Temp Pulse Resp B/P (MAP) Pulse Ox O2 Delivery O2 Flow Rate FiO2 05/05/20 14:42 180/100 05/05/20 14:00 98.5 92 18 99 Room Air I&O- Last 24 Hours up to 6 AM 05/05/20 06:00 Intake Total 2200 ml Output Total 800 ml Balance 1400 ml LETI WELCH MD May 05, 2020 15:10
[2020-05-05] MEDS: METOCLOPRAMIDE INJ 10MG/2ML VIAL (J2765 PER 1) IV SCH ×2 (16:55→21:09)
[2020-05-05] MEDS: ASPIRIN 81 MG CHEW TABLET PO SCH (16:55)
[2020-05-05 17:00] VITALS: BP 134/93
[2020-05-05] MEDS: PANTOPRAZOLE 40MG VIAL (C9113 PER 1) IV SCH (21:10)
[2020-05-05 22:00] VITALS: BP 167/105
[2020-05-06] MEDS: METOCLOPRAMIDE INJ 10MG/2ML VIAL (J2765 PER 1) IV SCH ×2 (03:25→10:52)
[2020-05-06 03:30] VITALS: BP 160/98
[2020-05-06] MEDS: HumaLOG INSULIN (NovoLOG) PER UNIT SC SCH ×2 (07:30→12:00)
[2020-05-06 08:01] LABS: HEMOGLOBIN 13.8 g/dl (12.0-15.5); MEAN CORPUSCULAR HEMOGLOBIN 28.6 pg (27.0-33.0); MEAN CORPUSCULAR HGB CONC 33.7 g/dl (32.0-36.5); MEAN CORPUSCULAR VOLUME 85.1 fl (80.0-96.0); PLATELET COUNT, AUTOMATED 258 10^3/uL (150-450); RED BLOOD COUNT 4.82 10^6/uL (4.00-5.40)
[2020-05-06 08:27] LABS: CALCIUM LEVEL 9.9 MG/DL (8.5-10.1); CREATININE FOR GFR 1.07 MG/DL (0.55-1.30); MAGNESIUM LEVEL 2.2 MG/DL (1.8-2.4); POTASSIUM SERUM 3.6 MEQ/L (3.5-5.1)
[2020-05-06] MEDS: ASPIRIN 81 MG CHEW TABLET PO SCH (08:29)
[2020-05-06] MEDS: ROSUVASTATIN 10 MG TAB (CRESTOR) PO SCH (08:30)
[2020-05-06] MEDS: LEVEMIR (INSULIN DETEMIR) 1 UNITS/0.01ML SC SCH (08:30)
[2020-05-06] MEDS: KCL 10MEQ/100ML SWI (KRUN) 10 MEQ in IV 1 EA IV ONE ×4 (08:31→08:46)
[2020-05-06] MEDS ORDERED: POTASSIUM CHLORIDE 10 MEQ SR TABLET PO ONE (09:00)
[2020-05-06] MEDS: ALPRAZolam 0.5 MG TAB PO PRN (09:03)
--- NOTE | 2020-05-06 11:18 | DS.PDOC ---
Discharge Summary General Date of Admission May 04, 2020 at 19:25 Date of Discharge 05/06/2020 Discharge Summary PROCEDURES PERFORMED DURING STAY: [None]. ADMITTING DIAGNOSES: 1. Intractable nausea and vomiting DISCHARGE DIAGNOSES: 1. Intractable nausea and vomiting due to Cannabis hyperemesis syndrome versus diabetic gastroparesis COMPLICATIONS/CHIEF COMPLAINT: Vomiting. HISTORY OF PRESENT ILLNESS: From H&P: Patient is a 45 year old female with a past medical history significant for DMII, HTN, GERD, and NSTEMI due to oral contraceptive use who presented to the [facility] ER with complaint of nausea and vomiting since Monday. She stated that her symptoms came on suddenly and she has not been able to hold anything down since Monday. She states that this has happened to her in the past and typically occurs after starting a medication. She stated that she had taken one of her friends Adderall a couple of days before her symptoms. She denies any sick contacts or travel. She denies any fevers, chills, diarrhea, or constipation. She states that a friend of hers is a PA and had given her IV fluids yesterday however she is still unable to tolerate any food or water. On presentation to the ER the patient was vitally stable. She was in hypertensive. She had a slight leukocytosis but otherwise labs were unrevealing. Abdominal X-ray did not demonstrate any acute pathology. Patient was given Phenergan, Reglan, and a NS bolus. Hospitalist service was consulted and the patient was admitted for further evaluation and management HOSPITAL COURSE: Patient is a 45 year old female with a past medical history significant for Diabetes mellitus type 2, HTN, GERD, NSTEMI from OCP use, and marijuana use who presented to the [facility] ER with complaint of intractable vomiting. Admitted for further medical management. # Intractable nausea vomiting: Likely secondary to cannabis hyperemesis syndrome versus gastroparesis. Patient is a daily cannabis user and has been using more frequently over the past few days. She also has a known confirmed history of gastroparesis patient denies early satiety or postprandial fullness which goes against gastroparesis. Zofran and Reglan. Protonix. He's been tolerating her diet. Her nausea and vomiting have significantly improved she hasn't vomited over and over 24 hours. She will be discharged home on Reglan scheduled. She has a scheduled appointment with GI May 20 for possible endoscopy. Blood pressure is now better controlled at time of discharge after patient has been able to tolerate her oral medications. DISCHARGE MEDICATIONS: Please see below. ALLERGIES: Please see below. PHYSICAL EXAMINATION ON DISCHARGE: VITAL SIGNS: Please see below. Constitutional: Awake and alert, in mild apparent distress due to nausea ENT: Sclera are clear. Mucosa is moist. Respiratory: Lungs CTA bilaterally. No respiratory distress. No use of accessory muscles. Cardiovascular: RRR S1 and S2 are normal, no murmur Gastrointestinal: Abdomen is soft, non distended, non tender, BS present. Musculoskeletal: No edema. Neurologic: No focal neurological deficit. Mental Status: A&O x3, normal affect Skin: Warm, dry LABORATORY DATA: Please see below. IMAGING: Abdominal x-ray impressions negative acute abdominal series PROGNOSIS: Fair ACTIVITY: [As tolerated]. DIET: Regular diet DISPOSITION: Home DISCHARGE INSTRUCTIONS: Please follow up with your primary care physician within 1 week from discharge. If you do not have one, please follow up with us to schedule an appointment. Please keep all of your follow up appointments. Please call central to book your appointments with hospital specialists. Please take all your medications as prescribed. Please call/come to Clinic or go to the Emergency Department if - Temp >101, intractable Nausea/Vomiting, Diarrhea, Mouth sores, Headaches, Altered mental status, Seizures, sudden onset of swelling, bleeding, shortness of breath or chest pain. ITEMS TO FOLLOWUP ON ON OUTPATIENT: 1. Follow-up with PCP within 3-5 days of discharge. 2. Follow up with your schedule appointment with gastroenterology on May 20 3. Stop smoking cannabis DISCHARGE CONDITION: [Stable]. TIME SPENT ON DISCHARGE: Greater than 35 minutes. Vital Signs/I&Os Vital Signs Date Time Temp Pulse Resp B/P (MAP) Pulse Ox O2 Delivery O2 Flow Rate FiO2 05/06/20 06:00 99.1 86 17 97 Room Air 05/06/20 03:30 160/98 (118) I&O- Last 24 Hours up to 6 AM 05/06/20 06:00 Intake Total 2150 ml Output Total 900 ml Balance 1250 ml Laboratory Data Labs 24H Laboratory Tests 2 05/05/20 11:39: Bedside Glucose (Misc Panel) 149H 05/05/20 16:38: Bedside Glucose (Misc Panel) 134H 05/05/20 20:42: Bedside Glucose (Misc Panel) 124H 05/06/20 07:00: Nucleated Red Blood Cells % (auto) 0.0, Anion Gap 11, Glomerular Filtration Rate 59.0, Calcium Level 9.9, Magnesium Level 2.2 05/06/20 07:44: Bedside Glucose (Misc Panel) 103 CBC/BMP Laboratory Tests 05/06/20 07:00 FSBS Laboratory Tests Test 05/05/20 11:39 05/05/20 16:38 05/05/20 20:42 05/06/20 07:44 Range/Units Bedside Glucose (Misc Panel) 149 134 124 103 70-105 MG/DL Microbiology Microbiology 05/04/20 Blood Culture - Preliminary, Resulted No growth after 24 hours . All specim... Discharge Medications Scheduled Hydrochlorothiazide (Hydrochlorothiazide) 25 Mg Tablet, 25 MG PO DAILY, (Reported) Insulin Aspart (Insulin Aspart Flexpen) 100 Unit/1 Ml Insuln.pen, 1 DOSE SC AC, (Reported) PER SLIDING SCALE Insulin Glargine,Hum.rec.anlog (Lantus Solostar) 100 Unit/1 Ml Insuln.pen, 43 UNIT SC DAILY, (Reported) Rosuvastatin Calcium (Rosuvastatin Calcium) 5 Mg Tablet, 5 MG PO DAILY, (Reported) Scheduled PRN Ibuprofen (Ibu-200) 200 Mg Tablet, 400 MG PO Q6H PRN for PAIN, (Reported) Metoclopramide HCl (Reglan) 10 Mg Tablet, 10 MG PO Q6H PRN for NAUSEA Promethazine HCl (Promethegan) 25 Mg Supp.rect, 25 MG ME Q8H PRN for NAUSEA Allergies Coded Allergies: codeine (Verified Allergy, Intermediate, rash, itchy, 10/29/18) hydrocodone (Verified Allergy, Intermediate, RASH, 10/29/18) LETI WELCH MD May 06, 2020 11:18
[2020-05-06] MEDS ORDERED: PROM25SU3 PR (11:24)
[2020-05-06] MEDS ORDERED: ASPI81CH8 PO (11:24)
[2020-05-06] MEDS ORDERED: PROT20TA11 PO (11:24)
[2020-05-06] MEDS ORDERED: ZOFR4TAB16 PO (11:24)
[2020-05-06] MEDS ORDERED: REGL10TA6 PO (11:24)
== END 2020-05-06 12:40 | disposition home or self-care (01) | DRG 392 ==
LOC: M ED 12:42 → M ED INP 19:25 → M MSPAV 22:09
PROVIDERS: ADMIT Internal Medicine; ATTEND Family Medicine
DX: R11.2 Nausea with vomiting, unspecified (principal); E11.43 Type 2 diabetes mellitus with diabetic autonomic (poly)neuropathy; I10 Essential (primary) hypertension; K21.9 Gastro-esophageal reflux disease without esophagitis; I25.2 Old myocardial infarction; F12.90 Cannabis use, unspecified, uncomplicated; Z79.4 Long term (current) use of insulin; Z79.899 Other long term (current) drug therapy; Z88.5 Allergy status to narcotic agent; F41.9 Anxiety disorder, unspecified; Z95.2 Presence of prosthetic heart valve

== ENCOUNTER → 2020-06-05 | Outpatient (CLI) | payer OTHER ==
[~2020-06-05] MED LIST changes: +ASPI81CH8 PO; +INSU100I16 SC; +LANTINJ4 SC; +PROM25SU3 PR; +PROT20TA11 PO; +REGL10TA6 PO; +ZOFR4TAB16 PO
--- NOTE | 2020-06-05 08:50 | REP ---
INDICATION: RIGHT UPPER QUAD PAIN. COMPARISON: CT 10/29/2018 TECHNIQUE: Standard right upper quadrant ultrasound with some color imaging. FINDINGS: Sonographic evaluation of right upper quadrant shows the liver homogeneous in echotexture and normal in size with vertical diameter 13.5 cm. No hepatic mass, intrahepatic biliary dilatation or adjacent ascites. There is no cyst. Mucosal fold in the gallbladder is anatomic normal variation. Wall thickness 2 mm normal. There is no stone, sludge, pericholecystic fluid or sonographic Molina sign identified. Common duct 4 mm without a filling defect. Limited views of the pancreas with the portions seen unremarkable but much of it obscured by gas shadowing. Right kidney is 9.1 x 4.5 x 4.6 cm and is without stone, cyst, mass or hydronephrosis. Cortical thickness and echogenicity were unremarkable IMPRESSION: Negative right upper quadrant ultrasound. No ascites, hepatic abnormality, gallstone, biliary dilatation, common duct dilatation or abnormality of the right kidney. The pancreas is seen only in part, those regions seen were unremarkable but the rest obscured by gas shadowing. <Electronically signed by Stephan Chambers > 06/05/20 0855
== END ==
LOC: M RAD 07:13
PROVIDERS: ATTEND Internal Medicine Gastroenterology
DX: R10.11 Right upper quadrant pain (principal)

== ENCOUNTER → 2020-06-20 | Outpatient (CLI) | payer OTHER ==
[~2020-06-20] MED LIST changes: +D31000TA2 PO; +INSUHUMDS SC; +THERTAB52 PO
== END ==
LOC: M LABSMTC 09:15
PROVIDERS: ATTEND Anesthesiology
DX: Z01.812 Encounter for preprocedural laboratory examination (principal); Z20.822 Contact with and (suspected) exposure to COVID-19

== ENCOUNTER 2020-06-25 09:21 | Day surgery (SDC) | payer OTHER ==
[~2020-06-25] VITALS: Ht 162.6 cm; Wt 62.6 kg
[~2020-06-25 09:21] MED LIST changes: +LIDOCAINE 2% 100MG/5ML SDV (FOR ANES.) As Ordered ONE; +NS 1,000 ML IV ONE; +propofoL 500 MG/50 ML VIAL As Ordered ONE
[2020-06-25] MEDS ORDERED: fentaNYL 100 MCG/2 ML INJECTION (J3010) As Ordered ONE (09:51)
[2020-06-25] MEDS ORDERED: PHENYLephrine 500MCG 5ML (100MCG/ML) SYRINGE As Ordered ONE (10:49)
--- NOTE | 2020-06-25 11:19 | ROOR ---
Patient Name: Arleen Howell Procedure Date: 06/25/2020 10:15 AM Date of : 1975 Age: 45 Room: [facility] Gender: Female Note Status: Finalized Procedure: Upper GI endoscopy Indications: Suspected gastroparesis Providers: Kevin Hanks MD Referring MD: Lanie Dubon NP Requesting Provider: Medicines: Monitored Anesthesia Care Complications: No immediate complications. Procedure: Pre-Anesthesia Assessment: - Prior to the procedure, a History and Physical was performed, and patient medications and allergies were reviewed. The patient is competent. The risks and benefits of the procedure and the sedation options and risks were discussed with the patient. All questions were answered and informed consent was obtained. Patient identification and proposed procedure were verified by the physician, the nurse and the anesthesiologist in the procedure room. Mental Status Examination: alert and oriented. Airway Examination: normal oropharyngeal airway and neck mobility. Respiratory Examination: clear to auscultation. CV Examination: normal. Prophylactic Antibiotics: The patient does not require prophylactic antibiotics. Prior Anticoagulants: The patient has taken no previous anticoagulant or antiplatelet agents. ASA Grade Assessment: II - A patient with mild systemic disease. After reviewing the risks and benefits, the patient was deemed in satisfactory condition to undergo the procedure. The anesthesia plan was to use monitored anesthesia care (MAC). Immediately prior to administration of medications, the patient was re-assessed for adequacy to receive sedatives. The heart rate, respiratory rate, oxygen saturations, blood pressure, adequacy of pulmonary ventilation, and response to care were monitored throughout the procedure. The physical status of the patient was re-assessed after the procedure. The Endoscope was introduced through the mouth, and advanced to the second part of duodenum. The upper GI endoscopy was accomplished without difficulty. The patient tolerated the procedure well. Findings: The examined esophagus was normal. The Z-line was regular and was found at the gastroesophageal junction. Scattered mild inflammation characterized by erythema and granularity was found in the gastric antrum. Biopsies were taken with a cold forceps for Helicobacter pylori testing. Verification of patient identification for the specimen was done by the physician and nurse using the patient's name, date and medical record number. Estimated blood loss was minimal. The duodenal bulb and second portion of the duodenum were normal. Impression: - Normal esophagus. - Z-line regular, at the gastroesophageal junction. - Gastritis. Biopsied. - Normal duodenal bulb and second portion of the duodenum. Recommendation: - Patient has a contact number available for emergencies. The signs and symptoms of potential delayed complications were discussed with the patient. Return to normal activities tomorrow. Written discharge instructions were provided to the patient. - High fiber diet. - Continue present medications. - Await pathology results. - Telephone GI clinic for pathology results in 2 weeks. - Return to primary care physician. Procedure Code(s): --- Professional --- 09557, Esophagogastroduodenoscopy, flexible, transoral; with biopsy, single or multiple Diagnosis Code(s): --- Professional --- K29.70, Gastritis, unspecified, without bleeding CPT copyright 2019 [employer]. All rights reserved. The codes documented in this report are preliminary and upon ceramics technician review may be revised to meet current compliance requirements. Kevin Hanks MD Kevin Hanks MD 06/25/2020 11:19:30 AM Electronically signed by Kevin Hanks MD Number of Addenda: 0 Note Initiated On: 06/25/2020 10:15 AM Estimated Blood Loss: Estimated blood loss was minimal.
--- NOTE | 2020-06-25 11:24 | ROOR ---
Patient Name: Arleen Howell Procedure Date: 06/25/2020 10:15 AM Date of : 1975 Age: 45 Room: [facility] Gender: Female Note Status: Finalized Procedure: Colonoscopy Indications: Screening in patient at increased risk: Family history of 1st-degree relative with colorectal cancer, Incidental - Chronic diarrhea Providers: Kevin Hanks MD Referring MD: Lanie Dubon NP Requesting Provider: Medicines: Monitored Anesthesia Care Complications: No immediate complications. Procedure: Pre-Anesthesia Assessment: - Prior to the procedure, a History and Physical was performed, and patient medications and allergies were reviewed. The patient is competent. The risks and benefits of the procedure and the sedation options and risks were discussed with the patient. All questions were answered and informed consent was obtained. Patient identification and proposed procedure were verified by the physician, the nurse and the anesthesiologist in the procedure room. Mental Status Examination: alert and oriented. Airway Examination: normal oropharyngeal airway and neck mobility. Respiratory Examination: clear to auscultation. CV Examination: normal. Prophylactic Antibiotics: The patient does not require prophylactic antibiotics. Prior Anticoagulants: The patient has taken no previous anticoagulant or antiplatelet agents. ASA Grade Assessment: II - A patient with mild systemic disease. After reviewing the risks and benefits, the patient was deemed in satisfactory condition to undergo the procedure. The anesthesia plan was to use monitored anesthesia care (MAC). Immediately prior to administration of medications, the patient was re-assessed for adequacy to receive sedatives. The heart rate, respiratory rate, oxygen saturations, blood pressure, adequacy of pulmonary ventilation, and response to care were monitored throughout the procedure. The physical status of the patient was re-assessed after the procedure. The Colonoscope was introduced through the anus and advanced to the terminal ileum, with identification of the appendiceal orifice and IC valve. The colonoscopy was performed without difficulty. The patient tolerated the procedure well. The quality of the bowel preparation was good. The terminal ileum, ileocecal valve, appendiceal orifice, and rectum were photographed. Scope insertion time was 3 minutes. Scope withdrawal time was 9 minutes. The total duration of the procedure was 12 minutes. Findings: The perianal and digital rectal examinations were normal. The terminal ileum appeared normal. Normal mucosa was found in the entire colon. Biopsies for histology were taken with a cold forceps from the right colon, left colon and rectosigmoid colon for evaluation of microscopic colitis. Verification of patient identification for the specimen was done by the physician and nurse using the patient's name, date and medical record number. Estimated blood loss was minimal. Five sessile polyps were found in the recto-sigmoid colon. The polyps were 3 to 4 mm in size. These polyps were removed with a cold biopsy forceps. Resection and retrieval were complete. Non-bleeding external and internal hemorrhoids were found during retroflexion. The hemorrhoids were small. Impression: - The examined portion of the ileum was normal. - Normal mucosa in the entire examined colon. Biopsied. - Five 3 to 4 mm polyps at the recto-sigmoid colon, removed with a cold biopsy forceps. Resected and retrieved. - Non-bleeding external and internal hemorrhoids. Recommendation: - Patient has a contact number available for emergencies. The signs and symptoms of potential delayed complications were discussed with the patient. Return to normal activities tomorrow. Written discharge instructions were provided to the patient. - Gastroparesis diet. - Continue present medications. - Await pathology results. - Repeat colonoscopy in 5 years for surveillance based on pathology results. - Telephone GI clinic for pathology results in 2 weeks. - Return to primary care physician. Procedure Code(s): --- Professional --- 10177, Colonoscopy, flexible; with biopsy, single or multiple Diagnosis Code(s): --- Professional --- Z80.0, Family history of malignant neoplasm of digestive organs K64.8, Other hemorrhoids K63.5, Polyp of colon CPT copyright 2019 [employer]. All rights reserved. The codes documented in this report are preliminary and upon asphalt paving foreman review may be revised to meet current compliance requirements. Kevin Hanks MD Kevin Hanks MD 06/25/2020 11:23:50 AM Electronically signed by Kevin Hanks MD Number of Addenda: 0 Note Initiated On: 06/25/2020 10:15 AM Estimated Blood Loss: Estimated blood loss was minimal.
[2020-06-25 11:25] VITALS: BP 134/85
== END 2020-06-25 11:35 | disposition home or self-care (01) ==
LOC: M OPP 09:21
PROVIDERS: ATTEND Internal Medicine Gastroenterology
DX: Z12.11 Encounter for screening for malignant neoplasm of colon (principal); Z80.0 Family history of malignant neoplasm of digestive organs; K63.5 Polyp of colon; K64.8 Other hemorrhoids; K29.70 Gastritis, unspecified, without bleeding; E10.9 Type 1 diabetes mellitus without complications; Z79.4 Long term (current) use of insulin; Z79.82 Long term (current) use of aspirin; Z79.899 Other long term (current) drug therapy; Z88.5 Allergy status to narcotic agent; Z91.040 Latex allergy status; Z86.74 Personal history of sudden cardiac arrest; Z95.5 Presence of coronary angioplasty implant and graft
CPT/HCPCS: 43239; 45380; 88305; J2370; J3010

== ENCOUNTER 2021-01-22 07:11 | Emergency (ER) | payer OTHER ==
[~2021-01-22] VITALS: Ht 162.6 cm; Wt 71.0 kg
[~2021-01-22 07:11] MED LIST changes: -LIDOCAINE 2% 100MG/5ML SDV (FOR ANES.) As Ordered ONE; -NS 1,000 ML IV ONE; -propofoL 500 MG/50 ML VIAL As Ordered ONE
--- OUTSIDE RECORDS SUMMARY | 2021-01-22 07:24 | CCD ---
Author Author [facility] Organization [facility] Address Unknown Phone Unavailable Care Team Providers Care Lubricating Specialist Name Role Phone Annabel NIEOT OPERATIONAL TEST MECHANIC DIONISIO Unavailable [phone] EMILIA, A. OPERATIONAL TEST MECHANIC DIONISIO Unavailable [phone] EMILIA, A. OPERATIONAL TEST MECHANIC DIONISIO Unavailable [phone] EMILIA, A. OPERATIONAL TEST MECHANIC DIONISIO Unavailable [phone] EMILIA, A. OPERATIONAL TEST MECHANIC DIONISIO Unavailable [phone] EMILIA, A. OPERATIONAL TEST MECHANIC DIONISIO Unavailable [phone] EMILIA, A. OPERATIONAL TEST MECHANIC DIONISIO Unavailable [phone] EMILIA, A. OPERATIONAL TEST MECHANIC DIONISIO Unavailable [phone] EMILIA, A. OPERATIONAL TEST MECHANIC DIONISIO Unavailable [phone] EMILIA, A. OPERATIONAL TEST MECHANIC DIONISIO Unavailable [phone] EMILIA, A. OPERATIONAL TEST MECHANIC DIONISIO Unavailable [phone] EMILIA, A. OPERATIONAL TEST MECHANIC DIONISIO Unavailable [phone] EMILIA, A. OPERATIONAL TEST MECHANIC DIONISIO Unavailable [phone] Jack NIETO. OPERATIONAL TEST MECHANIC DIONISIO Unavailable [phone] Jack NIETO. OPERATIONAL TEST MECHANIC DIONISIO Unavailable [phone] Feola, T Taylor PA Unavailable Unavailable Feola, T Taylor PA Unavailable Unavailable Feola, T Taylor PA Unavailable Unavailable Feola, T Taylor PA Unavailable Unavailable Feola, T Taylor PA Unavailable Unavailable Feola, T Taylor PA Unavailable Unavailable Feola, T Taylor PA Unavailable Unavailable Feola, T Taylor PA Unavailable Unavailable Feola, T Taylor PA Unavailable Unavailable Feola, T Taylor PA Unavailable Unavailable Feola, T Taylor PA Unavailable Unavailable Feola, T Taylor PA Unavailable Unavailable Feola, T Taylor PA Unavailable Unavailable Feola, T Taylor PA Unavailable Unavailable Feola, T Taylor PA Unavailable Unavailable Feola, T Taylor PA Unavailable Unavailable Feola, T Taylor PA Unavailable Unavailable Feola, T Taylor PA Unavailable Unavailable Feola, T Taylor PA Unavailable Unavailable Feola, T Taylor PA Unavailable Unavailable Feola, T Taylor PA Unavailable Unavailable Feola, T Taylor PA Unavailable Unavailable Feola, T Taylor PA Unavailable Unavailable Feola, T Taylor PA Unavailable Unavailable Feola, T Taylor PA Unavailable Unavailable Feola, T Taylor PA Unavailable Unavailable Feola, T Taylor PA Unavailable Unavailable Feola, T Taylor PA Unavailable Unavailable Feola, T Taylor PA Unavailable Unavailable Feola, T Taylor PA Unavailable Unavailable Feola, T Taylor PA Unavailable Unavailable Feola, T Taylor PA Unavailable Unavailable Feola, T Taylor PA Unavailable Unavailable Feola, T Taylor PA Unavailable Unavailable Feola, T Taylor PA Unavailable Unavailable Feola, T Taylor PA Unavailable Unavailable Feola, T Taylor PA Unavailable Unavailable Feola, T Taylor PA Unavailable Unavailable Feola, T Taylor PA Unavailable Unavailable Feola, T Taylor PA Unavailable Unavailable Feola, T Taylor PA Unavailable Unavailable Tayo MANRIQUEZ JR PA-C Unavailable Unavailable Tayo MANRIQUEZ JR PA-C Unavailable Unavailable Tayo MANRIQUEZ JR PA-C Unavailable Unavailable Tayo MANRIQUEZ JR PA-C Unavailable Unavailable Tayo MANRIQUEZ JR PA-C Unavailable Unavailable Tayo MANRIQUEZ JR PA-C Unavailable Unavailable Tayo MANRIQUEZ JR PA-C Unavailable Unavailable PICKERAL JR, J ROX PA-C Unavailable Unavailable PICKERAL JR, J ROX PA-C Unavailable Unavailable PICKERAL JR, J ROX PA-C Unavailable Unavailable PICKERAL JR, J ROX PA-C Unavailable Unavailable PICKERAL JR, J ROX PA-C Unavailable Unavailable PICKERAL JR, J ROX PA-C Unavailable Unavailable PICKERAL JR, J ROX PA-C Unavailable Unavailable PICKERAL JR, J ROX PA-C Unavailable Unavailable PICKERAL JR, J ROX PA-C Unavailable Unavailable PICKERAL JR, J ROX PA-C Unavailable Unavailable PICKERAL JR, J ROX PA-C Unavailable Unavailable PICKERAL JR, J ROX PA-C Unavailable Unavailable PICKERAL JR, J ROX PA-C Unavailable Unavailable PICKERAL JR, J ROX PA-C Unavailable Unavailable PICKERAL JR, J ROX PA-C Unavailable Unavailable PICKERAL JR, J ROX PA-C Unavailable Unavailable PICKERAL JR, J ROX PA-C Unavailable Unavailable PICKERAL JR, J ROX PA-C Unavailable Unavailable PICKERAL JR, J ROX PA-C Unavailable Unavailable PICKERAL JR, J ROX PA-C Unavailable Unavailable JUAN DANIEL, J Lanie ANP Unavailable Unavailable JUAN DANIEL, J Lanie ANP Unavailable Unavailable JUAN DANIEL, J Lanie ANP Unavailable Unavailable JUAN DANIEL, J Lanie ANP Unavailable Unavailable JUAN DANIEL, J Lanie ANP Unavailable Unavailable JUAN DANIEL, J Lanie ANP Unavailable Unavailable JUAN DANIEL, J Lanie ANP Unavailable Unavailable JUAN DANIEL, J Lanie ANP Unavailable Unavailable JUAN DANIEL, J Lanie ANP Unavailable Unavailable JUAN DANIEL, J Lanie ANP Unavailable Unavailable JUAN DANIEL, J Lanie ANP Unavailable Unavailable JUAN DAINEL, J Lanie ANP Unavailable Unavailable JUAN DANIEL, J Lanie ANP Unavailable Unavailable JUAN DANIEL, J Lanie ANP Unavailable Unavailable JUAN DANIEL, J Lanie ANP Unavailable Unavailable JUAN DANIEL, J Lanie ANP Unavailable Unavailable JUAN DANIEL, J Lanie ANP Unavailable Unavailable JUAN DANIEL, J Lanie ANP Unavailable Unavailable JUAN DANIEL, J Lanie ANP Unavailable Unavailable JUAN DANIEL, J Lanie ANP Unavailable Unavailable JUAN DANIEL, J Lanie ANP Unavailable Unavailable JUAN DANIEL, J Lanie ANP Unavailable Unavailable JUAN DANIEL, J Lanie ANP Unavailable Unavailable JUAN DANIEL, J Lanie ANP Unavailable Unavailable JUAN DANIEL, J Lanie ANP Unavailable Unavailable JUAN DANIEL, J Lanie ANP Unavailable Unavailable JUAN DANIEL, J Lanie ANP Unavailable Unavailable JUAN DANIEL, J Lanie ANP Unavailable Unavailable JUAN DANIEL, J Lanie ANP Unavailable Unavailable JUAN DANIEL, J Lanie ANP Unavailable Unavailable JUAN DANIEL, J Lanie ANP Unavailable Unavailable JUAN DANIEL, J Lanie ANP Unavailable Unavailable JUAN DANIEL, J Lanie ANP Unavailable Unavailable JUAN DANIEL, J Lanie ANP Unavailable Unavailable JUAN DANIEL, J Lanie ANP Unavailable Unavailable JUAN DANIEL, J Lanie ANP Unavailable Unavailable JUAN DANIEL, J Lanie ANP Unavailable Unavailable JUAN DANIEL, J Lanie ANP Unavailable Unavailable JUAN DANIEL, J Lanie ANP Unavailable Unavailable JUAN DANIEL, J Lanie ANP Unavailable Unavailable JUAN DANIEL, J Lanie ANP Unavailable Unavailable JUAN DANIEL, J Lanie ANP Unavailable Unavailable JUAN DANIEL, J Lanie ANP Unavailable Unavailable JUAN DANIEL, J Lanie ANP Unavailable Unavailable JUAN DANIEL, J Lanie ANP Unavailable Unavailable JUAN DANIEL, J Lanie ANP Unavailable Unavailable JUAN DANIEL, J Lanie ANP Unavailable Unavailable JUAN DANIEL, J Lanie ANP Unavailable Unavailable JUAN DANIEL, J Lanie ANP Unavailable Unavailable JUAN DANIEL, J Lanie ANP Unavailable Unavailable JUAN DANIEL, J Lanie ANP Unavailable Unavailable JUAN DANIEL, J Lanie ANP Unavailable Unavailable JUAN DANIEL, J Lanie ANP Unavailable Unavailable JUAN DANIEL, J Lanie ANP Unavailable Unavailable JUAN DANIEL, J Lanie ANP Unavailable Unavailable JUAN DANIEL, J Lanie ANP Unavailable Unavailable JUAN DANIEL, J Lanie ANP Unavailable Unavailable JUAN DANIEL, J Lanie ANP Unavailable Unavailable JUAN DANIEL, J Lanie ANP Unavailable Unavailable JUAN DANIEL, J Lanie ANP Unavailable Unavailable JUAN DANIEL, J Lanie ANP Unavailable Unavailable JUAN DANIEL, J Lanie ANP Unavailable Unavailable JUAN DANIEL, J Lanie ANP Unavailable Unavailable JUAN DANIEL, J Lanie ANP Unavailable Unavailable Re-disclosure Warning The records that you are about to access may contain information from federally-assisted alcohol or drug abuse programs. If such information is present, then the following federally mandated warning applies: This information has been disclosed to you from records protected by federal confidentiality rules (42 CFR part 2). The federal rules prohibit you from making any further disclosure of this information unless further disclosure is expressly permitted by the written consent of the person to whom it pertains or as otherwise permitted by 42 CFR part 2. A general authorization for the release of medical or other information is NOT sufficient for this purpose. The Federal rules restrict any use of the information to criminally investigate or prosecute any alcohol or drug abuse patient.The records that you are about to access may contain highly sensitive health information, the redisclosure of which is protected by Article 27-F of the [facility] Public Health law. If you continue you may have access to information: Regarding HIV / AIDS; Provided by facilities licensed or operated by the [facility] Office of Mental Health; or Provided by the [facility] Office for People With Developmental Disabilities. If such information is present, then the following [facility] mandated warning applies: This information has been disclosed to you from confidential records which are protected by state law. State law prohibits you from making any further disclosure of this information without the specific written consent of the person to whom it pertains, or as otherwise permitted by law. Any unauthorized further disclosure in violation of state law may result in a fine or correction sentence or both. A general authorization for the release of medical or other information is NOT sufficient authorization for further disc losure. Family History Family Member Name Family Member Gender Family Member Status Date o f Status Description Data Source(s) Unknown Male Problem [facility] ([facility]) Encounters Encounter Providers Location Date Indications Data Source(s ) Outpatient Attender: DIONISIO NIETO 01/08 07:28:14 AM EDT - 01/21/2021 08:48:22 AM EDT [facility] ([facility] ) Outpatient Attender: Taylor CERVANTES 021 08:45:29 AM EDT - 12/03/2020 10:10:35 AM EDT [facility] ([facility] ) Outpatient Attender: ROX Rojas 0 05/07/2020 10:00:00 AM EST [facility] ([facility] ) Outpatient Attender: Lanie Rojas 08:15:00 AM EDT [facility] ([facility] ) Immunizations Vaccine Date Status Description Data Source(s) COVID-19 VACCINE Pfizer 12/22/2020 12:00:00 AM EDT completed [facility] Vaccine Series Complete: YESThis Data wa s Submitted to [facility] Via [employer]. COVID-19 VACC, MRNA(PFIZER)/PF 12/22/2020 12:00:00 AM EDT completed [facility] COVID-19 VACCINE Pfizer 07/01/2020 12:00:00 AM EDT completed [facility] Vaccine Series Complete: YESThis Data wa s Submitted to [facility] Via [employer]. COVID-19 VACCINE Pfizer 06/10/2020 12:00:00 AM EST completed [facility] Vaccine Series Complete: NOThis Data was Submitted to [facility] Via [employer]. Influenza, injectable, MDCK, preservative free, apolonia valent 02/03/2020 08:35:00 AM EDT completed [facility] ([facility]) Medications Medication Brand Name Start Date Product Form Dose Route Admi nistrative Instructions Pharmacy Instructions Status Indications Reaction Description Data Source(s) 25 mg 01/13/2021 12:00:00 AM EDT tablet 30 TAKE ONE TABLET BY MOUTH EVERY DAY TAKE ONE TABLET BY MOUTH EVERY DAY SOLD: 01/16/2021 [facility] 100 unit/mL 01/13/2021 12:00:00 AM EDT insulin pen 15 INJECT 1-8 UNITS WITH MEALS AND SNACKS , MAX 40 UNITS PER DAY INJECT 1-8 UNITS WITH MEALS AND SNACKS , MAX 40 UNITS PER DAY SOLD: 01/16/2021 [facility] 3 ML Insulin Glargine 100 UNT/ML Pen Injector [Lantus] 100 unit/mL (3 mL) INSULIN GLARGINE,HUM.REC.ANLOG 01/13/2021 12:00:00 AM EDT insulin pen 15 INJECT 40 UNITS UNDER THE SKIN DAILY INJECT 40 UNITS UNDER THE SKIN DAILY SOLD: 01/16/2021 [facility] 5 mg 01/13/2021 12:00:00 AM EDT tablet 30 TAKE ONE TABLET BY MOUTH EVERY DAY TAKE ONE TABLET BY MOUTH EVERY DAY SOLD: 01/16/2021 [facility] 25 mg 11/26/2020 12:00:00 AM EDT tablet 30 TAKE ONE TABLET BY MOUTH EVERY DAY TAKE ONE TABLET BY MOUTH EVERY DAY SOLD: 12/01/2020 [facility] 5 mg 11/26/2020 12:00:00 AM EDT tablet 30 TAKE ONE TABLET BY MOUTH EVERY DAY AT BEDTIME TAKE ONE TABLET BY MOUTH EVERY DAY AT BEDTIME SOLD: 12/01/2020 [facility] 5 mg 10/15/2020 12:00:00 AM EDT tablet 30 TAKE ONE TABLET BY MOUTH EVERY DAY AT BEDTIME TAKE ONE TABLET BY MOUTH EVERY DAY AT BEDTIME SOLD: 10/20/2020 [facility] 25 mg 10/15/2020 12:00:00 AM EDT tablet 30 TAKE ONE TABLET BY MOUTH EVERY DAY TAKE ONE TABLET BY MOUTH EVERY DAY SOLD: 10/20/2020 [facility] 5 mg 08/25/2020 12:00:00 AM EDT tablet 30 TAKE ONE TABLET BY MOUTH EVERY DAY AT BEDTIME TAKE ONE TABLET BY MOUTH EVERY DAY AT BEDTIME SOLD: 09/02/2020 [facility] 25 mg 08/25/2020 12:00:00 AM EDT tablet 30 TAKE ONE TABLET BY MOUTH EVERY DAY TAKE ONE TABLET BY MOUTH EVERY DAY SOLD: 09/02/2020 [facility] 25 mg 07/08/2020 12:00:00 AM EDT tablet 30 TAKE ONE TABLET BY MOUTH EVERY DAY TAKE ONE TABLET BY MOUTH EVERY DAY SOLD: 07/14/2020 [facility] 5 mg 07/08/2020 12:00:00 AM EDT tablet 30 TAKE ONE TABLET BY MOUTH EVERY DAY AT BEDTIME TAKE ONE TABLET BY MOUTH EVERY DAY AT BEDTIME SOLD: 07/14/2020 [facility] 100 unit/mL 06/13/2020 12:00:00 AM EST insulin pen 15 USE PER SLIDING SCALE 4-8 UNITS BEFORE MEALS USE PER SLIDING SCALE 4-8 UNITS BEFORE MEALS SOLD: 09/02/2020 [facility] 100 unit/mL 06/13/2020 12:00:00 AM EST insulin pen 15 USE PER SLIDING SCALE 4-8 UNITS BEFORE MEALS USE PER SLIDING SCALE 4-8 UNITS BEFORE MEALS SOLD: 10/20/2020 [facility] 100 unit/mL 06/13/2020 12:00:00 AM EST insulin pen 15 USE PER SLIDING SCALE 4-8 UNITS BEFORE MEALS USE PER SLIDING SCALE 4-8 UNITS BEFORE MEALS SOLD: 12/14/2020 [facility] 100 unit/mL 06/13/2020 12:00:00 AM EST insulin pen 15 USE PER SLIDING SCALE 4-8 UNITS BEFORE MEALS USE PER SLIDING SCALE 4-8 UNITS BEFORE MEALS SOLD: 06/14/2020 [facility] 5 mg 05/27/2020 12:00:00 AM EST tablet,delayed release (DR/EC) 4 TAKE 4 TABLETS BY MOUTH TOGETHER PER BOWEL PREP INSTRUCTIONS TAKE 4 TABLETS BY MOUTH TOGETHER PER BOWEL PREP INSTRUCTIONS SOLD: 05/28/2020 [facility] 10 mg-3.5 gram -12 gram/160 mL 05/27/2020 12:00:00 AM EST so lution 320 FOLLOW PRE-PROCEDURE INSTRUCTIONS START DAY BEFORE PROCEDURE FOLLOW PRE- PROCEDURE INSTRUCTIONS START DAY BEFORE PROCEDURE SOLD: 05/28/2020 [facility] 5 mg 05/26/2020 12:00:00 AM EST tablet 90 TAKE ONE TABLET BY MOUTH EVERY DAY TAKE ONE TABLET BY MOUTH EVERY DAY SOLD: 05/28/2020 [facility] Enalapril Maleate 5 MG Oral Tablet Enalapril Maleate 05/26/2020 12:00:00 AM EST ORAL active [facility] ( [facility]) 10 mg 05/26/2020 12:00:00 AM EST tablet 90 TAKE ONE TABLET BY MOUTH THREE TIMES A DAY NEEDED BEFORE MEALS TAKE ONE TABLET BY MOUTH THREE TIMES A D AY NEEDED BEFORE MEALS SOLD: 05/28/2020 [facility] 10 mg 05/08/2020 12:00:00 AM EST tablet 60 TAKE ONE TABLET BY MOUTH TWICE A DAY PRIOR TO LUNCH AND DINNER TAKE ONE TABLET BY MOUTH TWICE A DAY ARANZA OR TO LUNCH AND DINNER SOLD: 05/13/2020 [facility] BLOOD SUGAR DIAGNOSTIC 05/07/2020 12:00:00 AM EST strip 200 USE 1 FOUR TIMES A DAY AND DIRECTED USE 1 FOUR TIMES A DAY AND DIRECTED SOLD: 05/07/2020 [facility] Metoclopramide 10 MG Oral Tablet Metoclopramide HCL 05/07/2020 1 2:00:00 AM EST ORAL active [facility] ( [facility]) Ondansetron 4 MG Disintegrating Oral Tablet Ondansetron 05/07/2020 12:00:00 AM EST active [facility] ([facility]) 28 gauge 05/07/2020 12:00:00 AM EST misc 100 TEST FOUR TIMES A DAY TEST FOUR TIMES A DAY SOLD: 05/07/2020 [facility] Promethazine Hydrochloride 25 MG Rectal Suppository [Prometh payam] Promethegan 05/07/2020 12:00:00 AM EST active [facility] ([facility]) Freestyle Lite Test 05/07/2020 12:00:00 AM EST active [facility] ([facility]) Freestyle Lite Test Strips 05/07/2020 12:00:00 AM EST completed [facility] ([facility]) Lancets Super Thin 28G 05/07/2020 12:00:00 AM EST active [facility] ([facility]) 4 mg 05/06/2020 12:00:00 AM EST tablet 20 TAKE ONE TABLET BY MOUTH EVERY 6 HOURS TAKE ONE TABLET BY MOUTH EVERY 6 HOURS SOLD: 05/06/2020 [facility] 81 mg 05/06/2020 12:00:00 AM EST tablet,chewable 30 CHEW ONE TABLET BY MOUTH EVERY DAY CHEW ONE TABLET BY MOUTH EVERY DAY SOLD: 05/06/2020 [facility] 20 mg 05/06/2020 12:00:00 AM EST tablet,delayed release (DR/EC) 30 TAKE ONE TABLET BY MOUTH EVERY DAY TAKE ONE TABLET BY MOUTH EVERY DAY SOLD: 05/06/2020 [facility] 10 mg 05/04/2020 12:00:00 AM EST tablet 20 TAKE ONE TABLET BY MOUTH EVERY 6 HOURS NEEDED FOR NAUSEA TAKE ONE TABLET BY MOUTH EVERY 6 HOURS A S NEEDED FOR NAUSEA SOLD: 05/06/2020 [facility] 25 mg 05/04/2020 12:00:00 AM EST suppository 10 INSERT ONE SUPPOSITORY RECTALLY EVERY 8 HOURS NEEDED FOR NAUSEA INSERT ONE SUPPOSITORY RECTALLY EVERY 8 HOURS NEEDED FOR NAUSEA SOLD: 05/06/2020 [facility] FLASH GLUCOSE SENSOR 02/20/2020 12:00:00 AM EST kit 2 APPLY 1 SENSOR EVERY 14 DAYS APPLY 1 SENSOR EVERY 14 DAYS SOLD: 06/12/2020 [facility] FLASH GLUCOSE SENSOR 02/20/2020 12:00:00 AM EST kit 2 APPLY 1 SENSOR EVERY 14 DAYS APPLY 1 SENSOR EVERY 14 DAYS SOLD: 12/14/2020 [facility] FLASH GLUCOSE SENSOR 02/20/2020 12:00:00 AM EST kit 2 APPLY 1 SENSOR EVERY 14 DAYS APPLY 1 SENSOR EVERY 14 DAYS SOLD: 04/15/2020 [facility] FLASH GLUCOSE SENSOR 02/20/2020 12:00:00 AM EST kit 2 APPLY 1 SENSOR EVERY 14 DAYS APPLY 1 SENSOR EVERY 14 DAYS SOLD: 02/20/2020 [facility] FLASH GLUCOSE SENSOR 02/20/2020 12:00:00 AM EST kit 2 APPLY 1 SENSOR EVERY 14 DAYS APPLY 1 SENSOR EVERY 14 DAYS SOLD: 10/20/2020 [facility] FLASH GLUCOSE SENSOR 02/20/2020 12:00:00 AM EST kit 2 APPLY 1 SENSOR EVERY 14 DAYS APPLY 1 SENSOR EVERY 14 DAYS SOLD: 05/15/2020 [facility] FLASH GLUCOSE SENSOR 02/20/2020 12:00:00 AM EST kit 2 APPLY 1 SENSOR EVERY 14 DAYS APPLY 1 SENSOR EVERY 14 DAYS SOLD: 07/19/2020 [facility] Freestyle Layla 14 Day/Sensor/Flash Monitoring System 02/06/2020 12:00:00 AM EDT active [facility] ([facility]) 100 unit/mL (3 mL) 02/05/2020 12:00:00 AM EDT insulin pen 15 INJECT 38 UNITS SUBCUTANEOUSLY ONCE DAILY IN THE MORNING INJECT 38 UNITS SUBCUTANEOUSLY ONCE DAILY IN THE MORNING SOLD: 05/08/2020 [facility] 3 ML Insulin Glargine 100 UNT/ML Pen Injector [Lantus] 100 unit/mL (3 mL) INSULIN GLARGINE,HUM.REC.ANLOG 02/05/2020 12:00:00 AM EDT insulin pen 15 INJECT 38 UNITS SUBCUTANEOUSLY ONCE DAILY IN THE MORNING INJECT 38 UNITS SUBCUTANEOUSLY ONCE DAILY IN THE MORNING SOLD: 09/02/2020 [facility] 3 ML Insulin Glargine 100 UNT/ML Pen Injector [Lantus] 100 unit/mL (3 mL) INSULIN GLARGINE,HUM.REC.ANLOG 02/05/2020 12:00:00 AM EDT insulin pen 15 INJECT 38 UNITS SUBCUTANEOUSLY ONCE DAILY IN THE MORNING INJECT 38 UNITS SUBCUTANEOUSLY ONCE DAILY IN THE MORNING SOLD: 10/20/2020 [facility] 3 ML Insulin Glargine 100 UNT/ML Pen Injector [Lantus] 100 unit/mL (3 mL) INSULIN GLARGINE,HUM.REC.ANLOG 02/05/2020 12:00:00 AM EDT insulin pen 15 INJECT 38 UNITS SUBCUTANEOUSLY ONCE DAILY IN THE MORNING INJECT 38 UNITS SUBCUTANEOUSLY ONCE DAILY IN THE MORNING SOLD: 12/14/2020 [facility] 100 unit/mL (3 mL) 02/05/2020 12:00:00 AM EDT insulin pen 15 INJECT 38 UNITS SUBCUTANEOUSLY ONCE DAILY IN THE MORNING INJECT 38 UNITS SUBCUTANEOUSLY ONCE DAILY IN THE MORNING SOLD: 06/12/2020 [facility] 100 unit/mL (3 mL) 02/05/2020 12:00:00 AM EDT insulin pen 30 INJECT 38 UNITS SUBCUTANEOUSLY ONCE DAILY IN THE MORNING INJECT 38 UNITS SUBCUTANEOUSLY ONCE DAILY IN THE MORNING SOLD: 02/06/2020 [facility] 100 unit/mL (3 mL) 02/05/2020 12:00:00 AM EDT insulin pen 15 INJECT 38 UNITS SUBCUTANEOUSLY ONCE DAILY IN THE MORNING INJECT 38 UNITS SUBCUTANEOUSLY ONCE DAILY IN THE MORNING SOLD: 07/19/2020 [facility] 100 unit/mL (3 mL) 02/04/2020 12:00:00 AM EDT insulin pen 15 USE PER SLIDING SCALE BETWEEN 4-8 UNITS BEFORE MEALS MAXIMUM DAILY DOSE = 24 UNITS USE PER SLIDING SCALE BETWEEN 4-8 UNITS BEFORE MEALS MAXIMUM DAILY DOSE = 24 UNITS SOLD: 02/05/2020 [facility] 25 mg 02/03/2020 12:00:00 AM EDT tablet 30 TAKE ONE TABLET BY MOUTH EVERY DAY TAKE ONE TABLET BY MOUTH EVERY DAY SOLD: 04/15/2020 [facility] BD Pen Needle/Kerry/Ultra -Fine/32G X 4mm 02/03/2020 12:00:00 AM EDT active [facility] 32 gauge x 5/32" 02/03/2020 12:00:00 AM EDT needle 120 USE DIRECTED FOUR TIMES A DAY USE DIRECTED FOUR TIMES A DAY SOLD: 09/02/2020 [facility] 5 mg 02/03/2020 12:00:00 AM EDT tablet 30 TAKE ONE TABLET BY MOUTH EVERY DAY AT BEDTIME TAKE ONE TABLET BY MOUTH EVERY DAY AT BEDTIME SOLD: 02/05/2020 [facility] 32 gauge x 5/32" 02/03/2020 12:00:00 AM EDT needle 120 USE DIRECTED FOUR TIMES A DAY USE DIRECTED FOUR TIMES A DAY SOLD: 06/12/2020 [facility] 50 mg 02/03/2020 12:00:00 AM EDT tablet 30 TAKE ONE TABLET BY MOUTH EVERY DAY TAKE ONE TABLET BY MOUTH EVERY DAY SOLD: 02/05/2020 [facility] 32 gauge x 5/32" 02/03/2020 12:00:00 AM EDT needle 120 USE DIRECTED FOUR TIMES A DAY USE DIRECTED FOUR TIMES A DAY SOLD: 12/14/2020 [facility] 32 gauge x 5/32" 02/03/2020 12:00:00 AM EDT needle 120 USE DIRECTED FOUR TIMES A DAY USE DIRECTED FOUR TIMES A DAY SOLD: 10/20/2020 [facility] 5 mg 02/03/2020 12:00:00 AM EDT tablet 30 TAKE ONE TABLET BY MOUTH EVERY DAY AT BEDTIME TAKE ONE TABLET BY MOUTH EVERY DAY AT BEDTIME SOLD: 05/28/2020 [facility] Immunization Adminstration,1 Vaccine/Toxoid 02/03/2020 12:00 :00 AM EDT completed [facility] Medication administered onsite 0.4 mg 02/03/2020 12:00:00 AM EDT tablet, sublingual 25 PLACE ONE TABLET UNDER THE TONGUE EVERY 5 MINUTES FOR UP TO 3 DOSES NEEDED FOR CHEST PAIN. IF CHEST PAIN STILL PERSISTS CONTACT [address] ONE TABLET UNDER THE TONGUE EVERY 5 MINUTES FOR UP TO 3 DOSES NEEDED FOR CHEST PAIN. IF CHEST PAIN STILL PERSISTS CONTACT 911 SOLD: 02/05/2020 [facility] 25 mg 02/03/2020 12:00:00 AM EDT tablet 30 TAKE ONE TABLET BY MOUTH EVERY DAY TAKE ONE TABLET BY MOUTH EVERY DAY SOLD: 05/28/2020 [facility] 25 mg 02/03/2020 12:00:00 AM EDT tablet 30 TAKE ONE TABLET BY MOUTH EVERY DAY TAKE ONE TABLET BY MOUTH EVERY DAY SOLD: 02/05/2020 [facility] 32 gauge x 5/32" 02/03/2020 12:00:00 AM EDT needle 200 USE DIRECTED FOUR TIMES A DAY USE DIRECTED FOUR TIMES A DAY SOLD: 02/05/2020 [facility] 5 mg 02/03/2020 12:00:00 AM EDT tablet 30 TAKE ONE TABLET BY MOUTH EVERY DAY AT BEDTIME TAKE ONE TABLET BY MOUTH EVERY DAY AT BEDTIME SOLD: 04/15/2020 [facility] 32 gauge x 5/32" 02/03/2020 12:00:00 AM EDT needle 120 USE DIRECTED FOUR TIMES A DAY USE DIRECTED FOUR TIMES A DAY SOLD: 07/17/2020 [employer] Insurance Providers Payer name Policy type / Coverage type Policy ID Covered green party ID Covered green party's relationship to bui Policy Bui Plan Information [facility] [employer] Commercial [id number] Family Dependent [id number] [facility] [employer] Commercial [id number] Self [id number] [employer] [id number] Spouse [id number] [employer] [id number] Spouse [id number] BS Manny [employer]ad/[employer] Medigap Part B [id number] Self [id number] [employer] [place] P[place] 302/307 [id number] [employer] [place] P[place] 302/307 [id number] SP [id number] [facility] U/W Commercial [id number] Self VY [id number] [employer] BS B [id number] S VYS [id number] [facility] U/[employer] Commercial [id number] Self VY [id number] [facility] [employer] Commercial [id number] Self VY [id number] [employer] B [id number] S VYE [id number] [employer] [place] 302/307 [id number] SP [id number] [place]/307 [id number] SP [id number] [facility] [id number] 2 [id number] SELF PAY UNAVAILABLE SP UNAVAILA BLE [facility] [id number] 2 [id number] [facility] [id number] SP [id number] [employer] [place] 302/307 [id number] Problems, Conditions, and Diagnoses Code Display Name Description Problem Type Effective Dates Data Source(s) [id number] Essential hypertension Essential hypertension Problem 05/19/2020 12:00:00 AM TIMOTHY NAYLOR ([facility], ) Surgeries/Procedures No Information Results ID Date Data Source [id number] 12/03/2020 09:00:00 AM EDT [facility] Name Value Range Interpretation Code Description Data Sandy rce(s) Supporting Document(s) SARS-CoV-2 RNA Resp Ql FLORECITA+probe NOT DETECTED [facility] This lab was ordered by GUSTAVO lee and reported by GUSTAVO Downs. ID Date Data Source [id number] 06/20/2020 08:20:00 AM EST [facility] Name Value Range Interpretation Code Description Data Sandy rce(s) Supporting Document(s) SARS coronavirus 2 RNA Not Detected [facility] This lab was ordered by [facility] and reported by [facility]. ID Date Data Source [id number] 05/26/2020 10:12:00 AM EST [facility] ([facility]) Name Value Range Interpretation Code Description Data Sandy rce(s) Supporting Document(s) Hemoglobin A1c/Hemoglobin.total in Blood 7.4 % [facility] ([facility]) Lab Result Notes: Pre-Diabetes 5.7 - 6.4 % Diabetes = or > 6.5% Glucose mean value [Mass/volume] in Blood Estimated fr om glycated hemoglobin 166 mg/dL 60-110 [facility] ([facility] ) ID Date Data Source [id number] 05/26/2020 10:12:00 AM EST [facility] ([facility]) Name Value Range Interpretation Code Description Data Sandy rce(s) Supporting Document(s) Glucose [Mass/volume] in Serum or Plasma 121 mg/dL 74-99 [facility] ([facility]) 100-125 mg/dL PRE-DIABETES/FASTING >126 mg/dL DIABETES/FASTING Urea nitrogen [Mass/volume] in Serum or Plasma 15 mg/dL 7-18 [facility] ([facility]) Sodium [Moles/volume] in Serum or Plasma 143 meq/L 136-145 [facility] ([facility]) Creatinine 1.0 mg/dL 0.6-1.3 [facility] Potassium [Moles/volume] in Serum or Plasma 4.7 meq/L 3.5-5.1 [facility] ([facility]) Chloride [Moles/volume] in Serum or Plasma 105 meq/L 98-107 [facility] ([facility]) Carbon dioxide, total [Moles/volume] in Serum or Plasma 27 meq/L 21 -32 [facility] ([facility]) Calcium [Mass/volume] in Serum or Plasma 9.1 mg/dL 8.5-10.1 [facility] ([facility]) Aspartate aminotransferase [Enzymatic activity/volume] in Serum or Plasma 13 U/L 15-37 [facility] ([facility] ) Alkaline phosphatase isoenzyme [Units/volume] in Serum or Pl asma 57 mg/dL 46-116 [facility] ([facility]) Total Bilirubin 0.5 mg/dL 0.2-1.0 [facility] ([facility]) Alanine aminotransferase [Enzymatic activity/volume] in Seru m or Plasma 20 U/L 12-78 [facility] ([facility]) Albumin [Mass/volume] in Serum or Plasma 4.1 g/dL 3.4-5.0 [facility] ([facility]) A/G Ratio 1.21 CALC 1.00-1.90 [facility]) Glomerular filtration rate/1.73 sq M pre dicted among non-blacks [Volume Rate/Area] in Serum or Plasma by Creatinine-based formula (MDRD) 60 mL/min [facility] ([facility]) Proteinase 3 Ab [Units/volume] in Serum 7.5 g/dL 6.4-8.2 [facility] ([facility]) Glomerular filtration rate/1.73 sq M pre dicted among blacks [Volume Rate/Area] in Serum or Plasma by Creatinine-based formula (MDRD) Laboratory test result [facility] <content>CHRONIC KIDNEY DISEASE STAGING PER NKF</content>
<content></content>
<content>STAGE I & II GFR >= 60 NORMAL TO MILDLY DECREASED</content>
<content>STAGE III GFR 30-59 MODERATELY DECREASED</content>
<content>STAGE IV GFR 15-29 SEVERELY DECREASED</content>
<content>STAGE V GFR <15 VERY LITTLE GFR LEFT</content>
<content>ESRD GFR <15 ON BARLEY STEEPER</content>
<content></content> ID Date Data Source [id number] 05/04/2020 07:11:00 PM EST [facility] ([facility]) Name Value Range Interpretation Code Description Data Sandy rce(s) Supporting Document(s) Influenza A Amplification Laboratory test result [facility] ([facility]) Negative results do not preclude influen za or RSV virus infection and should not be used as the sole basis for treatment or other patient management decisions. Influenza B Amplification Laboratory test result [facility] ([facility]) Negative results do not preclude influen za or RSV virus infection and should not be used as the sole basis for treatment or other patient management decisions. RSV Amplification Laboratory test result [facility] ([facility]) Negative results do not preclude influen za or RSV virus infection and should not be used as the sole basis for treatment or other patient management decisions. Laboratory test finding (navigational concept) Laboratory test result [facility] ([facility]) A false negative result may occur if a s pecimen is improperly collected, transported or handled. False negative results may also occur if inadequate numbers of organisms are present in the specimen. As with any molecular test, mutations within the target regions of Xpert Xpress SARS-CoV-2 could affect primer and/or probe binding resulting in failure to detect the presence of virus. This test cannot rule out diseases caused by other bacterial or viral pathogens. DISCLAIMER: Testing was performed using the [facility] SARS-CoV-2 test. This test was developed and its performance characteristics determined by [facility]. This test has not been FDA cleared or approved. This test has been authorized by FDA under an Emergency Use Authorization (EUA). This test is only authorized for the duration of time the declaration that circumstances exist justifying the authorization of the emergency use of in vitro diagnostic tests for detection of SARS-CoV-2 virus and/or diagnosis of COVID-19 infection under section 564(b)(1) of the Act, 21 U.S.C. 360bbb-3(b)(1), unless the authorization is terminated or revoked sooner. ID Date Data Source [id number] 05/04/2020 07:11:00 PM EST [facility] Name Value Range Interpretation Code Description Data Sandy rce(s) Supporting Document(s) SARS coronavirus 2 RNA [Presence] in Res piratory specimen by FLORECITA with probe detection NEGATIVE [facility] This lab was ordered by [facility] a nd reported by [facility]. ID Date Data Source [id number] 05/04/2020 05:29:00 PM EST [facility] ([facility] Name Value Range Interpretation Code Description Data Sandy rce(s) Supporting Document(s) Amphetamines Level Urine Laboratory test result [facility] ([facility]) Benzodiazepines Urine Laboratory test result [facility] ([facility]) Barbiturates Urine Laboratory test result [facility] ([facility]) Cocaine Metabolite Urine Laboratory test result [facility] ([facility]) Cannabinoids Urine Laboratory test result [facility] ([facility]) Methadone Urine Laboratory test result [facility] ([facility]) Opiates Urine Laboratory test result [facility] ([facility]) Phencyclidine Urine Laboratory test result [facility] ([facility]) ALL PRESUMPTIVE POSITIVE FINDINGS AR E UNCONFIRMED THRESHOLD IN NG/ML AMPHETAMINES/METHAMPHET 1000 BARBITURATES 200 BENZODIAZEPINES 200 CANNABINOIDS (THC) 50 COCAINE METABOLITE 300 METHADONE 300 OPIATES 300 PHENCYCLIDINE 25 RESULTS ARE FOR MEDICAL PURPOSES ONLY. ALL URINE SPECIMENS WILL BE SAVED FOR 3 DAYS. IF CONFIRMATION OF A PRESUMPTIVE POSITIVE SCREEN RESULT IS DESIRED, CALL CHEMISTRY ([phone]) AND REQUEST URINE TO BE SENT TO REFERENCE LAB. FOR A LIST OF CLOSELY RELATED COMPOUNDS PLEASE CALL THE LAB. ID Date Data Source [id number] 05/04/2020 03:28:00 PM EST [facility] ([facility]) Name Value Range Interpretation Code Description Data Sandy rce(s) Supporting Document(s) Venous PH 7.419 units 7.330-7.430 [facility] ([facility]) Venous Partial Pressure Co2 33.0 mmHg 38.0-50.0 [facility] ([facility]) Venous Total Co2 21.9 meq/L 24.0-28.0 [facility] ([facility]) Venous Partial Pressure O2 52.0 mmHg 30.0-50.0 [facility] ([facility]) Venous Hco3 20.9 meq/L 23.0-27.0 [facility] ([facility]) Venous Standard Hco3 22.0 meq/L [facility] ( [facility]) Venous Base Excess -2.7 [facility] ([facility]) Venous O2 Saturation 88.0 % 60.0-80.0 [facility] ([facility]) ID Date Data Source [id number] 05/04/2020 02:17:00 PM EST [facility] ([facility]) Name Value Range Interpretation Code Description Data Sandy rce(s) Supporting Document(s) HCG Serum Qualitative Laboratory test result [facility] ([facility]) ID Date Data Source [id number] 05/04/2020 02:17:00 PM EST [facility] ([facility]) Name Value Range Interpretation Code Description Data Sandy rce(s) Supporting Document(s) Blood Urea Nitrogen 38 mg/dL 7-18 [facility] ([facility]) Glucose, Fasting 248 mg/dL 70-100 [facility] ([facility]) Creatinine For GFR 1.27 mg/dL 0.55-1.30 [facility] ([facility]) Glomerular Filtration Rate 48.4 [facility] ([facility]) <content>Units are mL/min/1.73 m2</content>
<content></content>
<content>Chronic Kidney Disease Staging per NKF:</content>
<content></content>
<content>Stage I & II GFR >=60 Normal to Mildly Decreased</content>
<content>Stage III GFR 30- 59 Moderately Decreased</content>
<content>Stage IV GFR 15-29 Severely Decreased</content>
<content>Stage V GFR <15 Very Little GFR Left</content>
<content>ESRD GFR <15 on BARLEY STEEPER</content>
<content></content> Sodium Level 141 meq/L 136-145 [facility] ([facility]) Potassium Serum 3.7 meq/L 3.5-5.1 [facility] ([facility]) Carbon Dioxide Level 25 meq/L 21-32 [facility] ([facility]) Chloride Level 104 meq/L 98-107 [facility] ([facility]) Anion Gap 12 meq/L 8-16 [facility] [facility] Calcium Level 10.0 mg/dL 8.5-10.1 [facility] ([facility]) ID Date Data Source [id number] 05/04/2020 02:17:00 PM EST [facility] ([facility]) Name Value Range Interpretation Code Description Data Sandy rce(s) Supporting Document(s) Lipoprotein lipase [Enzymatic activity/volume] in Serum or P lasma 120 U/L 73-393 [facility] ([facility]) ID Date Data Source [id number] 05/04/2020 02:17:00 PM EST [facility] ([facility]) Name Value Range Interpretation Code Description Data Sandy rce(s) Supporting Document(s) Alt/SGPT 23 U/L 12-78 [facility] [facility] Ast/Sgot 15 U/L 7-37 [facility] ([place] [facility]) Alkaline Phosphatase 69 U/L 45-117 [facility] ([facility]) Bilirubin,Total 0.6 mg/dL 0.2-1.0 [facility] ([facility]) Bilirubin,Direct 0.2 mg/dL 0.0-0.2 [facility] ([facility]) Albumin 4.5 GM/DL 3.2-5.2 [facility] ([place] [facility]) Albumin/Globulin Ratio 1.2 1.2-2.2 [facility] ([facility]) Total Protein 8.3 GM/DL 6.4-8.2 [facility] ([facility]) ID Date Data Source [id number] 05/04/2020 02:17:00 PM EST [facility] ([facility]) Name Value Range Interpretation Code Description Data Sandy rce(s) Supporting Document(s) Hemoglobin 13.2 g/dL 12.0-15.5 [facility] Red Blood Count 4.65 10 4.00-5.40 [facility] ([facility]) White Blood Count 14.0 10 4.0-10.0 [facility] Mean Corpuscular Hemoglobin 28.4 pg 27.0-33.0 [facility] ([facility]) Mean Corpuscular Volume 84.9 fl 80.0-96.0 [facility] ([facility]) Hematocrit 39.5 % 36.0-47.0 [facility] [facility] Red Cell Distribution Width 13.3 % 11.5-14.5 [facility] ([facility]) Mean Corpuscular HGB Conc 33.4 g/dL 32.0-36.5 [facility] ([facility]) Platelet Count, Automated 260 10 150-450 [facility] ([facility]) Lymph % 6.6 % 24.0-44.0 [facility] [facility] Cannon % 7.4 % 0.0-5.0 [facility] [facility] Neutrophils % 84.8 % 36.0-66.0 [facility] ([facility]) Eos % 0.1 % 0.0-3.0 [facility] [facility] Baso % 0.1 % 0.0-1.0 [facility] [facility]) Immature Granulocyte % 1.0 % 0-3.0 [facility] ([facility]) Lymph # 0.9 10 1.5-5.0 [facility] [facility]) Nucleated Red Blood Cell % 0.0 % 0-0 [facility] ([facility]) Neutrophils # 11.9 10 1.5-8.5 [facility] ([facility]) Cannon # 1.0 10 0.0-0.8 [facility] [facility] Baso # 0.0 10 0.0-0.2 [facility] [facility] Eos # 0.0 10 0.0-0.5 [facility] [place] [facility] ID Date Data Source [id number] 05/04/2020 12:52:00 PM EST [facility] ([facility]) Name Value Range Interpretation Code Description Data Sandy rce(s) Supporting Document(s) Bedside Glucose 188 mg/dL 70-105 [facility] ([facility]) ID Date Data Source [id number] 02/03/2020 08:57:00 AM EDT [facility] ([facility]) Name Value Range Interpretation Code Description Data Sandy rce(s) Supporting Document(s) Parathyrin.intact [Mass/volume] in Serum or Plasma 25.7 pg/mL 18.5-88 .0 [facility] ([facility]) ID Date Data Source [id number] 02/03/2020 08:57:00 AM EDT [facility] ([facility]) Name Value Range Interpretation Code Description Data Sandy rce(s) Supporting Document(s) Calcidiol [Mass/volume] in Serum or Plasma 22.6 24.0-80.0 [facility] ([facility]) This test was performed using [employer] I P Vitamin D immunoassay kit. Values obtained with different assay methods should not be used interchangeably. ID Date Data Source [id number] 02/03/2020 08:56:00 AM EDT [facility] ([facility]) Name Value Range Interpretation Code Description Data Sandy rce(s) Supporting Document(s) Urine Creatinine 204.9 mg/dL 30.0-125.0 [facility] ([facility]) Microalbumin Urine 78.8 mg/L 1.3-20.0 [facility] ([facility]) Microalb/Creat Ratio 38.5 ug/mg 0.0-30.0 [facility] ( [facility]) ID Date Data Source [id number] 02/03/2020 08:56:00 AM EDT [facility] ([facility]) Name Value Range Interpretation Code Description Data Sandy rce(s) Supporting Document(s) Creatinine 1.2 mg/dL 0.6-1.3 [facility] Urea nitrogen [Mass/volume] in Serum or Plasma 18 mg/dL 7-18 [facility] ([facility]) Glucose [Mass/volume] in Serum or Plasma 301 mg/dL 74-99 [facility] ([facility]) 100-125 mg/dL PRE-DIABETES/FASTING >126 mg/dL DIABETES/FASTING Chloride [Moles/volume] in Serum or Plasma 100 meq/L 98-107 [facility] ([facility]) Potassium [Moles/volume] in Serum or Plasma 4.7 meq/L 3.5-5.1 [facility] Sodium [Moles/volume] in Serum or Plasma 135 meq/L 136-145 [facility] Carbon dioxide, total [Moles/volume] in Serum or Plasma 26 meq/L 21 -32 [facility] Calcium [Mass/volume] in Serum or Plasma 9.2 mg/dL 8.5-10.1 [facility] Glomerular filtration rate/1.73 sq M pre dicted among blacks [Volume Rate/Area] in Serum or Plasma by Creatinine-based formula (MDRD) 59 mL/min [facility] ([facility]) <content>CHRONIC KIDNEY DISEASE STAGING PER NKF</content>
<content></content>
<content>STAGE I & II GFR >= 60 NORMAL TO MILDLY DECREASED</content>
<content>STAGE III GFR 30-59 MODERATELY DECREASED</content>
<content>STAGE IV GFR 15-29 SEVERELY DECREASED</content>
<content>STAGE V GFR <15 VERY LITTLE GFR LEFT</content>
<content>ESRD GFR <15 ON BARLEY STEEPER</content>
<content></content> Glomerular filtration rate/1.73 sq M pre dicted among non-blacks [Volume Rate/Area] in Serum or Plasma by Creatinine-based formula (MDRD) 49 mL/min [facility] ([facility]) ID Date Data Source [id number] 02/03/2020 08:56:00 AM EDT [facility]) Name Value Range Interpretation Code Description Data Sandy rce(s) Supporting Document(s) Hemoglobin A1c/Hemoglobin.total in Blood 10.1 % [facility] ([facility]) Lab Result Notes: Pre-Diabetes 5.7 - 6.4 % Diabetes = or > 6.5% Glucose mean value [Mass/volume] in Blood Estimated fr om glycated hemoglobin 243 mg/dL 60-110 [facility] ([facility] ) ID Date Data Source [id number] 02/03/2020 08:56:00 AM EDT [facility]) Name Value Range Interpretation Code Description Data Sandy rce(s) Supporting Document(s) Leukocytes [#/volume] in Blood by Automated count 6.9 x10*3/UL 4.1-10 .9 [facility] ([facility]) Hemoglobin [Mass/volume] in Blood 14.0 g/dL 12.0-18.0 [facility] ([facility]) Erythrocytes [#/volume] in Blood by Automated count 4.96 x10*6/UL 4.2 0-6.30 [facility] ([facility]) MCH 28.3 pg 26.0-32.0 [facility] ([place] [facility]) Hematocrit [Volume Fraction] of Blood by Automated count 41.3 % 3 7.0-51.0 [facility] ([facility]) MCV 83.2 fL 80.0-97.0 [facility] ([place] [facility]) Erythrocyte distribution width [Ratio] by Automated count 13.4 % 11.6-13.7 [facility] ([facility] Platelets [#/volume] in Blood by Automated count 235 x10*3/UL 140-440 [facility] ([facility]) MCHC 34.0 g/dL 31.0-38.0 [facility] ([place] [facility]) MPV 9.6 FL 7.8-11.0 [facility] ([place] [facility]) Mid % 5.4 % 1.7-9.3 [facility] ([facility]) Lymph % 20.6 % 10.0-58.5 [facility] ([place] [facility]) Lymph # 1.4 x10*3/UL 0.6-4.1 [facility] ([facility]) Neut % 74.0 % 37.0-92.0 [facility] ([place] [facility]) Mid # 0.4 x10*3/UL 0.1-0.6 [facility] ([facility]) Neut # 5.1 x10*3/UL 2.0-7.8 [facility] ([facility]) ID Date Data Source [id number] 02/03/2020 08:56:00 AM EDT [facility] ([facility]) Name Value Range Interpretation Code Description Data Sandy rce(s) Supporting Document(s) Hemoglobin A1c/Hemoglobin.total in Blood Laboratory test result [facility] ([facility]) Procedure Social History No Information Vital Signs ID Date Data Source UNK Name Value Range Interpretation Code Description Data Source(s) Systolic blood pressure 154 mm[Hg] 154 mm[Hg] M [facility] ([facility]) Diastolic blood pressure 110 mm[Hg] 110 mm[Hg] [facility] ([facility]) Heart rate 93 /min 93 /min [facility] ([facility]) Body height 63 [in_i] 63 [in_i] [facility] ([facility]) 5'3" Body weight 137.00 [lb_av] 137.00 [lb_av] [facility] ([facility] Oxygen saturation in Arterial blood by Pulse oximetry 98 % 98 % [facility] ([facility]) Body mass index (BMI) [Ratio] 24.3 kg/m2 24.3 k g/m2 [facility] Systolic blood pressure 124 mm[Hg] 124 mm[Hg] [facility] ([facility]) Body weight 65.772 kg 65.772 kg [facility] ([facility]) Body surface area Derived from formula 1.71 m2 1.71 m2 [facility] ([facility]) Diastolic blood pressure 72 mm[Hg] 72 mm[Hg] [facility] ([facility]) Body height 64 [in_i] 64 [in_i] [facility] ([facility]) 5'4" Body weight 145.00 [lb_av] 145.00 [lb_av] [facility] ([facility]) Body mass index (BMI) [Ratio] 24.9 kg/m2 24.9 k g/m2 [facility] ([facility]) [place] body weight 120 [lb_av] 120 [lb_av] [facility] ([facility]) Systolic blood pressure 130 mm[Hg] 130 mm[Hg] [facility] ([facility]) Body mass index (BMI) [Ratio] 23.9 kg/m2 23.9 k g/m2 [facility] ([facility]) Diastolic blood pressure 90 mm[Hg] 90 mm[Hg] [facility] ([facility]) Heart rate 110 /min 110 /min [facility] ([facility]) Body height 63 [in_i] 63 [in_i] [facility] ([facility]) 5'3" Body weight 135.00 [lb_av] 135.00 [lb_av] [facility] ([facility]) Oxygen saturation in Arterial blood by Pulse oximetry 97 % 97 % [facility] ([facility]) RM Air Heart rate 96 /min 96 /min [facility] ([facility]) Body height 63 [in_i] 63 [in_i] [facility] ([facility]) 5'3" Body weight 144.00 [lb_av] 144.00 [lb_av] [facility] ([facility]) Oxygen saturation in Arterial blood by Pulse oximetry 99 % 99 % [facility] ([facility]) RM Air Body mass index (BMI) [Ratio] 25.5 kg/m2 25.5 k g/m2 [facility] ([facility]) Systolic blood pressure 140 mm[Hg] 140 mm[Hg] [facility] ([facility]) Diastolic blood pressure 90 mm[Hg] 90 mm[Hg] [facility] ([facility])
[2021-01-22] MEDS ORDERED: TIZA4CAP PO (07:26)
[2021-01-22] MEDS ORDERED: KETO10TAB PO (07:26)
--- OUTSIDE RECORDS SUMMARY | 2021-01-22 09:09 | CCD ---
Author Author [facility] Organization [facility] Address Unknown Phone Unavailable Care Team Providers Care Planer Tailer Name Role Phone Annabel NIETO SEAFOOD TECHNOLOGY SPECIALIST DIONISIO Unavailable [phone] EMILIA, A. SEAFOOD TECHNOLOGY SPECIALIST DIONISIO Unavailable [phone] EMILIA, A. SEAFOOD TECHNOLOGY SPECIALIST DIONISIO Unavailable [phone] EMILIA, A. SEAFOOD TECHNOLOGY SPECIALIST DIONISIO Unavailable [phone] EMILIA, A. SEAFOOD TECHNOLOGY SPECIALIST DIONISIO Unavailable [phone] EMILIA, A. SEAFOOD TECHNOLOGY SPECIALIST DIONISIO Unavailable [phone] EMILIA, A. SEAFOOD TECHNOLOGY SPECIALIST DIONISIO Unavailable [phone] EMILIA, A. SEAFOOD TECHNOLOGY SPECIALIST DIONISIO Unavailable [phone] EMILIA, A. SEAFOOD TECHNOLOGY SPECIALIST DIONISIO Unavailable [phone] EMILIA, A. SEAFOOD TECHNOLOGY SPECIALIST DIONISIO Unavailable [phone] EMILIA, A. SEAFOOD TECHNOLOGY SPECIALIST DIONISIO Unavailable [phone] EMILIA, A. SEAFOOD TECHNOLOGY SPECIALIST DIONISIO Unavailable [phone] EMILIA, A. SEAFOOD TECHNOLOGY SPECIALIST DIONISIO Unavailable [phone] Jack NIETO. SEAFOOD TECHNOLOGY SPECIALIST DIONISIO Unavailable [phone] Jack NIETO. SEAFOOD TECHNOLOGY SPECIALIST DIONISIO Unavailable [phone] Feola, T Taylor PA Unavailable Unavailable [...] is protected by Article 27-F of the [facility] Public Health law. If you continue you may have access to information: Regarding HIV / AIDS; Provided by facilities licensed or operated by the [facility] Office of Mental Health; or Provided by the [facility] Office for People With Developmental Disabilities. If such information is present, then the following [facility] mandated warning applies: This information has been [...] law may result in a fine or retirement sentence or both. A general authorization for the release of medical or other information is NOT sufficient authorization for further disc losure. Family History Family Member Name Family Member Gender Family Member Status Date o f Status Description Data Source(s) Unknown Male Problem [facility] ([facility]) Encounters Encounter Providers Location Date Indications Data Source(s ) Outpatient Attender: DIONISIO NIETO 01/08 07:28:14 AM EDT - 01/21/2021 08:48:22 AM EDT [facility] ([facility] ) Outpatient Attender: Taylor CERVANTES 021 08:45:29 AM EDT - 12/03/2020 10:10:35 AM EDT [facility] ([facility] ) Outpatient Attender: ROX Rojas 0 05/07/2020 10:00:00 AM EST [facility] ([facility] ) Outpatient Attender: Lanie Rojas 08:15:00 AM EDT [facility] ([facility] ) Immunizations Vaccine Date Status Description Data Source(s) COVID-19 VACCINE Pfizer 12/22/2020 12:00:00 AM EDT completed [facility] Vaccine Series Complete: YESThis Data wa s Submitted to [facility] Via [facility]. COVID-19 VACC, MRNA(PFIZER)/PF 12/22/2020 12:00:00 AM EDT completed [facility] COVID-19 VACCINE Pfizer 07/01/2020 12:00:00 AM EDT completed [facility] Vaccine Series Complete: YESThis Data wa s Submitted to [facility] Via [facility]. COVID-19 VACCINE Pfizer 06/10/2020 12:00:00 AM EST completed [facility] Vaccine Series Complete: NOThis Data was Submitted to [facility] Via [facility]. Influenza, injectable, MDCK, preservative free, apolonia valent 02/03/2020 08:35:00 AM EDT completed [facility]) Medications Medication Brand Name Start [...] 12:00:00 AM EST ORAL active [facility] ( [facility]) 10 mg 05/26/2020 12:00:00 AM EST [...] 2:00:00 AM EST ORAL active [facility] ( [facility]) Ondansetron 4 MG Disintegrating Oral Tablet Ondansetron 05/07/2020 12:00:00 AM EST active [facility] ([facility]) 28 gauge 05/07/2020 12:00:00 AM EST misc 100 TEST FOUR TIMES A DAY TEST FOUR TIMES A DAY SOLD: 05/07/2020 Paula Fink s Promethazine Hydrochloride 25 MG Rectal Suppository [Prometh payam] Promethegan 05/07/2020 12:00:00 AM EST active [facility] ([facility]) Freestyle Lite Test 05/07/2020 12:00:00 AM EST active [facility] ([facility]) Freestyle Lite Test Strips 05/07/2020 12:00:00 AM EST completed [facility] ([facility]) Lancets Super Thin 28G 05/07/2020 12:00:00 AM EST active [facility] ([facility]) 4 mg 05/06/2020 12:00:00 AM EST [...] System 02/06/2020 12:00:00 AM EDT active [facility] ([facility]) 100 unit/mL (3 mL) 02/05/2020 12:00:00 [...] 4mm 02/03/2020 12:00:00 AM EDT active [facility] 32 gauge x 5/32" 02/03/2020 [...] 02/03/2020 12:00 :00 AM EDT completed [facility] Medication administered onsite 0.4 [...] DIRECTED FOUR TIMES A DAY SOLD: 07/17/2020 [employer] Insurance Providers Payer name Policy type / Coverage type Policy ID Covered libertarian ID Covered libertarian's relationship to bui Policy Bui Plan Information [facility] [employer] Commercial [id number] Family Dependent [id number] [facility] Tr[employer] Commercial [id number] Self [id number] [employer] [id number] Spouse [id number] [employer] [id number] Spouse [id number] BS Manny Trad/MX Medigap Part B [id number] Self [id number] [employer] P[place] 302/307 [id number] [id number] [employer] [place]/307 [id number] SP [id number] [facility] U/W Commercial [id number] Self VY [id number] [employer]CE[employer] BS B [id number] S VYS [id number] [facility] U/W Commercial [id number] Self VY [id number] [facility] U/W Commercial [id number] Self VY [id number] [employer]BS B [id number] S VYE [id number] [employer] [place] PPO 302/307 [id number] SP [id number] [employer] [place] PPO 302/307 [id number] SP [id number] [facility] [id number] 2 [id number] SELF PAY UNAVAILABLE SP UNAVAILA BLE [facility] [id number] 2 [id number] [facility] [id number] SP [id number] [employer] [place] PPO 302/307 [id number] Problems, Conditions, and Diagnoses Code Display Name Description Problem Type Effective Dates Data Source(s) [id number] Essential hypertension Essential hypertension Problem 05/19/2020 12:00:00 AM TIMOTHY NAYLOR ([facility], ) Surgeries/Procedures No Information Results ID Date Data Source [id number] 12/03/2020 09:00:00 AM EDT [facility] Name Value Range Interpretation Code Description Data Sandy rce(s) Supporting Document(s) SARS-CoV-2 RNA Resp Ql FLORECITA+probe NOT DETECTED [facility] This lab was ordered by [facility] and reported by [facility]. ID Date Data Source [id number] 06/20/2020 08:20:00 AM EST [facility] Name Value Range Interpretation Code Description Data Sandy rce(s) Supporting Document(s) SARS coronavirus 2 RNA Not Detected [facility] This lab was ordered by [facility] and reported by [facility]. ID Date Data Source [id number] 05/26/2020 10:12:00 AM EST [facility] ([facility]) Name Value Range Interpretation Code Description Data Sandy rce(s) Supporting Document(s) Hemoglobin A1c/Hemoglobin.total in Blood 7.4 % [facility] ([facility]) Lab Result Notes: Pre-Diabetes 5.7 - 6.4 % Diabetes = or > 6.5% Glucose mean value [Mass/volume] in Blood Estimated fr om glycated hemoglobin 166 mg/dL 60-110 [facility] ([facility] ) ID Date Data Source [id number] 05/26/2020 10:12:00 AM EST [facility] ([facility]) Name Value Range Interpretation Code Description Data Sandy rce(s) Supporting Document(s) Glucose [Mass/volume] in Serum or Plasma 121 mg/dL 74-99 [facility] ([facility]) 100-125 mg/dL PRE-DIABETES/FASTING >126 mg/dL DIABETES/FASTING Urea nitrogen [Mass/volume] in Serum or Plasma 15 mg/dL 7-18 [facility] ([facility]) Sodium [Moles/volume] in Serum or Plasma 143 meq/L 136-145 [facility] ([facility]) Creatinine 1.0 mg/dL 0.6-1.3 [facility] Potassium [Moles/volume] in Serum or Plasma 4.7 meq/L 3.5-5.1 [facility] ([facility]) Chloride [Moles/volume] in Serum or Plasma 105 meq/L 98-107 [facility] ([facility]) Carbon dioxide, total [Moles/volume] in Serum or Plasma 27 meq/L 21 -32 [facility] ([facility]) Calcium [Mass/volume] in Serum or Plasma 9.1 mg/dL 8.5-10.1 [facility] ([facility]) Aspartate aminotransferase [Enzymatic activity/volume] in Serum or Plasma 13 U/L 15-37 [facility] ([facility] ) Alkaline phosphatase isoenzyme [Units/volume] in Serum or Pl asma 57 mg/dL 46-116 [facility] ([facility]) Total Bilirubin 0.5 mg/dL 0.2-1.0 [facility] ([facility]) Alanine aminotransferase [Enzymatic activity/volume] in Seru m or Plasma 20 U/L 12-78 [facility] ([facility]) Albumin [Mass/volume] in Serum or Plasma 4.1 g/dL 3.4-5.0 [facility] ([facility]) A/G Ratio 1.21 CALC 1.00-1.90 [facility]) Glomerular filtration rate/1.73 sq M pre dicted among non-blacks [Volume Rate/Area] in Serum or Plasma by Creatinine-based formula (MDRD) 60 mL/min [facility] ([facility]) Proteinase 3 Ab [Units/volume] in Serum 7.5 g/dL 6.4-8.2 [facility] ([facility]) Glomerular filtration rate/1.73 sq M pre dicted among blacks [Volume Rate/Area] in Serum or Plasma by Creatinine-based formula (MDRD) Laboratory test result [facility] <content>CHRONIC KIDNEY DISEASE STAGING PER NKF</content>
<content></content>
<content>STAGE I & II GFR >= 60 NORMAL TO MILDLY DECREASED</content>
<content>STAGE III GFR 30-59 MODERATELY DECREASED</content>
<content>STAGE IV GFR 15-29 SEVERELY DECREASED</content>
<content>STAGE V GFR <15 VERY LITTLE GFR LEFT</content>
<content>ESRD GFR <15 ON POST TRONIC MACHINE OPERATOR</content>
<content></content> ID Date Data Source [id number] 05/04/2020 07:11:00 PM EST [facility] ([facility] Name Value Range Interpretation Code Description Data Sandy rce(s) Supporting Document(s) Influenza A Amplification Laboratory test result [facility] Negative results do not preclude influen za or RSV virus infection and should not be used as the sole basis for treatment or other patient management decisions. Influenza B Amplification Laboratory test result [facility] Negative results do not preclude influen za or RSV virus infection and should not be used as the sole basis for treatment or other patient management decisions. RSV Amplification Laboratory test result [facility] Negative results do not preclude influen za or RSV virus infection and should not be used as the sole basis for treatment or other patient management decisions. Laboratory test finding (navigational concept) Laboratory test result [facility] A false negative result [...] pathogens. DISCLAIMER: Testing was performed using the [employer] SARS-CoV-2 test. This test was developed and its performance characteristics determined by [employer]. This test has not been FDA cleared [...] or revoked sooner. ID Date Data Source [id number] 05/04/2020 07:11:00 PM EST [facility] Name Value Range Interpretation Code Description Data Sandy rce(s) Supporting Document(s) SARS coronavirus 2 RNA [Presence] in Res piratory specimen by FLORECITA with probe detection NEGATIVE [facility] This lab was ordered by [facility] a nd reported by [facility]. ID Date Data Source [id number] 05/04/2020 05:29:00 PM EST [facility] Name Value Range Interpretation Code Description Data Sandy rce(s) Supporting Document(s) Amphetamines Level Urine Laboratory test result [facility] ([facility]) Benzodiazepines Urine Laboratory test result [facility] ([facility]) Barbiturates Urine Laboratory test result [facility] Cocaine Metabolite Urine Laboratory test result [facility]) Cannabinoids Urine Laboratory test result [facility] Methadone Urine Laboratory test result [facility] ([facility]) Opiates Urine Laboratory test result [facility] ([facility]) Phencyclidine Urine Laboratory test result [facility] ALL PRESUMPTIVE POSITIVE FINDINGS [...] CALL THE LAB. ID Date Data Source [id number] 05/04/2020 03:28:00 PM EST [facility] ([facility] Name Value Range Interpretation Code Description Data Sandy rce(s) Supporting Document(s) Venous PH 7.419 units 7.330-7.430 [facility] ([facility]) Venous Partial Pressure Co2 33.0 mmHg 38.0-50.0 [facility] ([facility]) Venous Total Co2 21.9 meq/L 24.0-28.0 [facility] ([facility]) Venous Partial Pressure O2 52.0 mmHg 30.0-50.0 [facility] ([facility]) Venous Hco3 20.9 meq/L 23.0-27.0 [facility] ([facility]) Venous Standard Hco3 22.0 meq/L [facility] ( [facility]) Venous Base Excess -2.7 [facility] ([facility]) Venous O2 Saturation 88.0 % 60.0-80.0 [facility] ([facility]) ID Date Data Source [id number] 05/04/2020 02:17:00 PM EST [facility] ([facility]) Name Value Range Interpretation Code Description Data Sandy rce(s) Supporting Document(s) HCG Serum Qualitative Laboratory test result [facility] ([facility]) ID Date Data Source [id number] 05/04/2020 02:17:00 PM EST [facility] ([facility]) Name Value Range Interpretation Code Description Data Sandy rce(s) Supporting Document(s) Blood Urea Nitrogen 38 mg/dL 7-18 [facility] ([facility]) Glucose, Fasting 248 mg/dL 70-100 [facility] ([facility]) Creatinine For GFR 1.27 mg/dL 0.55-1.30 [facility] ([facility]) Glomerular Filtration Rate 48.4 [facility] ([facility]) <content>Units are mL/min/1.73 m2</content>
<content></content>
<content>Chronic Kidney Disease Staging per NKF:</content>
<content></content>
<content>Stage I & II GFR >=60 Normal to Mildly Decreased</content>
<content>Stage III GFR 30- 59 Moderately Decreased</content>
<content>Stage IV GFR 15-29 Severely Decreased</content>
<content>Stage V GFR <15 Very Little GFR Left</content>
<content>ESRD GFR <15 on POST TRONIC MACHINE OPERATOR</content>
<content></content> Sodium Level 141 meq/L 136-145 [facility] ([facility]) Potassium Serum 3.7 meq/L 3.5-5.1 [facility] ([facility]) Carbon Dioxide Level 25 meq/L 21-32 [facility] ([facility]) Chloride Level 104 meq/L 98-107 [facility] ([facility]) Anion Gap 12 meq/L 8-16 [facility]) Calcium Level 10.0 mg/dL 8.5-10.1 [facility] ([facility]) ID Date Data Source [id number] 05/04/2020 02:17:00 PM EST [facility] ([facility]) Name Value Range Interpretation Code Description Data Sandy rce(s) Supporting Document(s) Lipoprotein lipase [Enzymatic activity/volume] in Serum or P lasma 120 U/L 73-393 [facility] ([facility]) ID Date Data Source [id number] 05/04/2020 02:17:00 PM EST [facility] ([facility]) Name Value Range Interpretation Code Description Data Sandy rce(s) Supporting Document(s) Alt/SGPT 23 U/L 12-78 [facility] Ast/Sgot 15 U/L 7-37 [facility]) Alkaline Phosphatase 69 U/L 45-117 [facility] ([facility]) Bilirubin,Total 0.6 mg/dL 0.2-1.0 [facility] ([facility]) Bilirubin,Direct 0.2 mg/dL 0.0-0.2 [facility] ([facility]) Albumin 4.5 GM/DL 3.2-5.2 [facility]) Albumin/Globulin Ratio 1.2 1.2-2.2 [facility] ([facility]) Total Protein 8.3 GM/DL 6.4-8.2 [facility] ([facility]) ID Date Data Source [id number] 05/04/2020 02:17:00 PM EST [facility] ([facility]) Name Value Range Interpretation Code Description Data Sandy rce(s) Supporting Document(s) Hemoglobin 13.2 g/dL 12.0-15.5 [facility] Red Blood Count 4.65 10 4.00-5.40 [facility] ([facility]) White Blood Count 14.0 10 4.0-10.0 [facility] Mean Corpuscular Hemoglobin 28.4 pg 27.0-33.0 ME [facility] ([facility]) Mean Corpuscular Volume 84.9 fl 80.0-96.0 [facility] ([facility]) Hematocrit 39.5 % 36.0-47.0 [facility] Red Cell Distribution Width 13.3 % 11.5-14.5 [facility] ([facility]) Mean Corpuscular HGB Conc 33.4 g/dL 32.0-36.5 MEDE NT ([facility]) Platelet Count, Automated 260 10 150-450 [facility] ([facility]) Lymph % 6.6 % 24.0-44.0 [facility] [place] % 7.4 % 0.0-5.0 [facility] Neutrophils % 84.8 % 36.0-66.0 [facility] ([facility]) Eos % 0.1 % 0.0-3.0 [facility] Baso % 0.1 % 0.0-1.0 [facility] Immature Granulocyte % 1.0 % 0-3.0 [facility] ([facility]) Lymph # 0.9 10 1.5-5.0 [facility] Nucleated Red Blood Cell % 0.0 % 0-0 [facility] ([facility]) Neutrophils # 11.9 10 1.5-8.5 [facility] ([facility]) [place] # 1.0 10 0.0-0.8 [facility] Baso # 0.0 10 0.0-0.2 [facility] Eos # 0.0 10 0.0-0.5 [facility] ID Date Data Source [id number] 05/04/2020 12:52:00 PM EST [facility] ([facility]) Name Value Range Interpretation Code Description Data Sandy rce(s) Supporting Document(s) Bedside Glucose 188 mg/dL 70-105 [facility] ([facility]) ID Date Data Source [id number] 02/03/2020 08:57:00 AM EDT [facility] ([facility]) Name Value Range Interpretation Code Description Data Sandy rce(s) Supporting Document(s) Parathyrin.intact [Mass/volume] in Serum or Plasma 25.7 pg/mL 18.5-88 .0 [facility] ([facility]) ID Date Data Source [id number] 02/03/2020 08:57:00 AM EDT [facility] ([facility]) Name Value Range Interpretation Code Description Data Sandy rce(s) Supporting Document(s) Calcidiol [Mass/volume] in Serum or Plasma 22.6 24.0-80.0 [facility] ([facility]) This test was performed using [employer] I P Vitamin D immunoassay kit. Values obtained with different assay methods should not be used interchangeably. ID Date Data Source [id number] 02/03/2020 08:56:00 AM EDT [facility] ([facility]) Name Value Range Interpretation Code Description Data Sandy rce(s) Supporting Document(s) Urine Creatinine 204.9 mg/dL 30.0-125.0 [facility] ([facility]) Microalbumin Urine 78.8 mg/L 1.3-20.0 [facility] ([facility]) Microalb/Creat Ratio 38.5 ug/mg 0.0-30.0 [facility] ( [facility]) ID Date Data Source [id number] 02/03/2020 08:56:00 AM EDT [facility] ([facility]) Name Value Range Interpretation Code Description Data Sandy rce(s) Supporting Document(s) Creatinine 1.2 mg/dL 0.6-1.3 [facility] Urea nitrogen [Mass/volume] in Serum or Plasma 18 mg/dL 7-18 [facility] ([facility]) Glucose [Mass/volume] in Serum or Plasma 301 mg/dL 74-99 [facility] ([facility]) 100-125 mg/dL PRE-DIABETES/FASTING >126 mg/dL DIABETES/FASTING Chloride [Moles/volume] in Serum or Plasma 100 meq/L 98-107 [facility] ([facility]) Potassium [Moles/volume] in Serum or Plasma 4.7 meq/L 3.5-5.1 [facility] Sodium [Moles/volume] in Serum or Plasma 135 meq/L 136-145 [facility] Carbon dioxide, total [Moles/volume] in Serum or Plasma 26 meq/L 21 -32 [facility] Calcium [Mass/volume] in Serum or Plasma 9.2 mg/dL 8.5-10.1 [facility] Glomerular filtration rate/1.73 sq M pre dicted among blacks [Volume Rate/Area] in Serum or Plasma by Creatinine-based formula (MDRD) 59 mL/min [facility] ([facility]) <content>CHRONIC KIDNEY DISEASE STAGING PER NKF</content>
<content></content>
<content>STAGE I & II GFR >= 60 NORMAL TO MILDLY DECREASED</content>
<content>STAGE III GFR 30-59 MODERATELY DECREASED</content>
<content>STAGE IV GFR 15-29 SEVERELY DECREASED</content>
<content>STAGE V GFR <15 VERY LITTLE GFR LEFT</content>
<content>ESRD GFR <15 ON POST TRONIC MACHINE OPERATOR</content>
<content></content> Glomerular filtration rate/1.73 sq M pre dicted among non-blacks [Volume Rate/Area] in Serum or Plasma by Creatinine-based formula (MDRD) 49 mL/min [facility] ([facility]) ID Date Data Source [id number] 02/03/2020 08:56:00 AM EDT [facility] Name Value Range Interpretation Code Description Data Sandy rce(s) Supporting Document(s) Hemoglobin A1c/Hemoglobin.total in Blood 10.1 % [facility] ([facility]) Lab Result Notes: Pre-Diabetes 5.7 - 6.4 % Diabetes = or > 6.5% Glucose mean value [Mass/volume] in Blood Estimated fr om glycated hemoglobin 243 mg/dL 60-110 [facility] ([facility] ) ID Date Data Source [id number] 02/03/2020 08:56:00 AM EDT [facility] Name Value Range Interpretation Code Description Data Sandy rce(s) Supporting Document(s) Leukocytes [#/volume] in Blood by Automated count 6.9 x10*3/UL 4.1-10 .9 [facility] ([facility]) Hemoglobin [Mass/volume] in Blood 14.0 g/dL 12.0-18.0 [facility] ([facility]) Erythrocytes [#/volume] in Blood by Automated count 4.96 x10*6/UL 4.2 0-6.30 [facility] ([facility]) MCH 28.3 pg 26.0-32.0 [facility]) Hematocrit [Volume Fraction] of Blood by Automated count 41.3 % 3 7.0-51.0 [facility] ([facility]) MCV 83.2 fL 80.0-97.0 [facility] ([facility]) Erythrocyte distribution width [Ratio] by Automated count 13.4 % 11.6-13.7 [facility] Platelets [#/volume] in Blood by Automated count 235 x10*3/UL 140-440 [facility] ([facility]) MCHC 34.0 g/dL 31.0-38.0 [facility] ([facility]) MPV 9.6 FL 7.8-11.0 [facility]) Mid % 5.4 % 1.7-9.3 [facility] ([facility]) Lymph % 20.6 % 10.0-58.5 [facility] ([facility] [facility]) Lymph # 1.4 x10*3/UL 0.6-4.1 [facility] ([facility]) Neut % 74.0 % 37.0-92.0 [facility] Mid # 0.4 x10*3/UL 0.1-0.6 [facility] ([facility]) Neut # 5.1 x10*3/UL 2.0-7.8 [facility] ([facility]) ID Date Data Source [id number] 02/03/2020 08:56:00 AM EDT [facility] ([facility]) Name Value Range Interpretation Code Description Data Sandy rce(s) Supporting Document(s) Hemoglobin A1c/Hemoglobin.total in Blood Laboratory test result [facility] ([facility]) Procedure Social History No Information Vital Signs ID Date Data Source UNK Name Value Range Interpretation Code Description Data Source(s) Systolic blood pressure 154 mm[Hg] 154 mm[Hg] [facility]) Diastolic blood pressure 110 mm[Hg] 110 mm[Hg] [facility] ([facility]) Heart rate 93 /min 93 /min [facility] ([facility]) Body height 63 [in_i] 63 [in_i] [facility] ([facility]) 5'3" Body weight 137.00 [lb_av] 137.00 [lb_av] [facility] Oxygen saturation in Arterial blood by Pulse oximetry 98 % 98 % [facility] ([facility]) Body mass index (BMI) [Ratio] 24.3 kg/m2 24.3 k g/m2 [facility] ([facility]) Systolic blood pressure 124 mm[Hg] 124 mm[Hg] [facility] ([facility]) Diastolic blood pressure 72 mm[Hg] 72 mm[Hg] [facility] ([facility]) Body height 64 [in_i] 64 [in_i] [facility] ([facility]) 5'4" Body weight 145.00 [lb_av] 145.00 [lb_av] [facility] ([facility]) Body mass index (BMI) [Ratio] 24.9 kg/m2 24.9 k g/m2 [facility] ([facility]) Morrison body weight 120 [lb_av] 120 [lb_av] [facility] Body weight 65.772 kg 65.772 kg [facility] ([facility]) Body surface area Derived from formula 1.71 m2 1.71 m2 [facility] ([facility]) Systolic blood pressure 130 mm[Hg] 130 mm[Hg] M [facility] ([facility]) Body mass index (BMI) [Ratio] 23.9 kg/m2 23.9 k g/m2 [facility] ([facility]) Diastolic blood pressure 90 mm[Hg] 90 mm[Hg] [facility] ([facility]) Heart rate 110 /min 110 /min [facility] ([facility]) Body height 63 [in_i] 63 [in_i] [facility] ([facility]) 5'3" Body weight 135.00 [lb_av] 135.00 [lb_av] [facility] ([facility]) Oxygen saturation in Arterial blood by Pulse oximetry 97 % 97 % [facility] ([facility]) RM Air Heart rate 96 /min 96 /min [facility] ([facility]) Body height 63 [in_i] 63 [in_i] [facility] ([facility]) 5'3" Body weight 144.00 [lb_av] 144.00 [lb_av] [facility] ([facility]) Oxygen saturation in Arterial blood by Pulse oximetry 99 % 99 % [facility] ([facility]) RM Air Body mass index (BMI) [Ratio] 25.5 kg/m2 25.5 k g/m2 [facility] ([facility]) Systolic blood pressure 140 mm[Hg] 140 mm[Hg] M [facility] ([facility]) Diastolic blood pressure 90 mm[Hg] 90 mm[Hg] [facility] ([facility])
[2021-01-22] MEDS ORDERED: NS 1,000 ML IV ONE (09:40)
[2021-01-22] MEDS ORDERED: ONDANSETRON 4MG/2ML VIAL IV ONE (09:40)
[2021-01-22] MEDS ORDERED: KETOROLAC 30 MG/ML 1ML VIAL IV ONE (09:40)
[2021-01-22 10:09] LABS: BASO % 0.6 % (0.0-1.0); EOS # 0.3 10^3/uL (0.0-0.5); EOS % 4.3 % (0.0-3.0); HEMATOCRIT 43.9 % (36.0-47.0); HEMOGLOBIN 14.6 g/dl (12.0-15.5); LYMPH # 1.6 10^3/uL (1.5-5.0); LYMPH % 22.5 % (24.0-44.0); MEAN CORPUSCULAR HGB CONC 33.3 g/dl (32.0-36.5); MEAN CORPUSCULAR VOLUME 87.3 fl (80.0-96.0); MONO # 0.4 10^3/uL (0.0-0.8); MONO % 5.7 % (2.0-8.0); NEUTROPHILS # 4.8 10^3/uL (1.5-8.5); NEUTROPHILS % 66.5 % (36.0-66.0); PLATELET COUNT, AUTOMATED 307 10^3/uL (150-450); RED BLOOD COUNT 5.03 10^6/uL (4.00-5.40); WHITE BLOOD COUNT 7.2 10^3/uL (4.0-10.0)
[2021-01-22 10:48] LABS: ALBUMIN 4.2 GM/DL (3.2-5.2); ALT/SGPT 26 U/L (12-78); BILIRUBIN,DIRECT < 0.1 MG/DL (0.0-0.2); BILIRUBIN,TOTAL 0.4 MG/DL (0.2-1.0); LIPASE 136 U/L (73-393); TOTAL PROTEIN 8.3 GM/DL (6.4-8.2)
--- NOTE | 2021-01-22 11:07 | REP ---
INDICATION: right flank pain COMPARISON: None TECHNIQUE: Axial noncontrast images from the lung bases to the pubic symphysis with coronal and sagittal reformations. This CT examination was performed using the following dose reduction techniques: Automated exposure control, adjustment of mA and/or kv according to the patient's size, and use of iterative reconstruction technique. FINDINGS: Lung bases are clear. Visualized heart and pericardium normal. Liver, spleen, pancreas, gallbladder, bilateral adrenal glands and kidneys are normal. Specifically, no hydroureteronephrosis, perinephric stranding, or nephroureterolithiasis is appreciated. The enteric system is unremarkable and without obstruction or acute inflammatory process. Normal terminal ileum and appendix identified in the right lower quadrant. Scattered sigmoid diverticula noted without acute diverticulitis. Pelvis demonstrates normal bladder and age-appropriate uterus/adnexa. No ascites. No free air. No adenopathy. No focal inflammatory stranding. Abdominal aorta without aneurysm. Musculoskeletal structures are intact and without acute osseous abnormality. IMPRESSION: No acute abdominopelvic pathology appreciated. <Electronically signed by Francesco Middleton > 01/22/21 [id number]
[2021-01-22 11:49] LABS: BLOOD UREA NITROGEN 26 MG/DL (7-18); CALCIUM LEVEL 9.5 MG/DL (8.5-10.1); CARBON DIOXIDE LEVEL 25 MEQ/L (21-32); CHLORIDE LEVEL 107 MEQ/L (98-107); CK-MB VALUE MASS 1.6 NG/ML (<3.6); CPK CREATINE PHOSPHOKINASE 244 U/L (26-192); CREATININE FOR GFR 1.25 MG/DL (0.55-1.30); GLOMERULAR FILTRATION RATE 49.3 (>58); GLUCOSE, FASTING 133 MG/DL (70-100); MB/CK RELATIVE INDEX 0.66 (< OR =4); POTASSIUM SERUM 5.5 MEQ/L (3.5-5.1); SODIUM LEVEL 137 MEQ/L (136-145); TROPONIN I < 0.02 NG/ML (< 0.10)
[2021-01-22] MEDS ORDERED: DICYCLOMINE INJ 20MG/2ML (J0500) IM ONE (12:30)
[2021-01-22] MEDS ORDERED: METOCLOPRAMIDE INJ 10MG/2ML VIAL (J2765 PER 1) IV ONE (12:30)
[2021-01-22 13:27] VITALS: BP 187/90
[2021-01-22] MEDS ORDERED: MIRA3350 PO (13:30)
[2021-01-22] MEDS ORDERED: REGL10TA6 PO (13:30)
--- NOTE | 2021-01-22 18:54 | ECGEPIP ---
[facility] - ED Test Date: 2021-01-22 Pat Name: SONI LAWSON Department: Room: - Gender: Female [employer]: JENNIFER : [id number] Requested By: ELIZABETH ALVARADO PA-C. Order Number: [id number] Reading MD: [employer] Measurements Intervals [place] Rate: 81 P: 65 ND: 156 QRS: 60 QRSD: 74 T: 71 QT: 376 QTc: 436 Interpretive Statements Normal sinus rhythm POOR R WAVE PROGRESSION Nonspecific T wave abnormality SIMILAR TO 10/29/18 Electronically Signed on 01-22-2021 18:54:00 EDT by [employer]
== END 2021-01-22 14:06 | disposition home or self-care (01) ==
LOC: M ED 07:11
DX: K59.00 Constipation, unspecified (principal); K31.84 Gastroparesis; I25.10 Atherosclerotic heart disease of native coronary artery without angina pectoris; I25.2 Old myocardial infarction; E11.9 Type 2 diabetes mellitus without complications; Z79.4 Long term (current) use of insulin; Z79.82 Long term (current) use of aspirin; Z79.899 Other long term (current) drug therapy; J30.89 Other allergic rhinitis; Z88.5 Allergy status to narcotic agent; Z91.040 Latex allergy status
CPT/HCPCS: 74176; 80048; 80076; 81001; 82550; 82553; 83690; 84484; 84702; 85025; 93005; 96361; 96372; 96374; 96375; 99284; J0500; J1885; J2405; J2765

== ENCOUNTER 2022-01-06 23:06 | Emergency (ER) | payer OTHER ==
[~2022-01-06] VITALS: Ht 162.6 cm; Wt 63.2 kg
[~2022-01-06 23:06] MED LIST changes: -D31000TA2 PO; +KETO10TAB PO; +MIRA3350 PO; +TIZA4CAP PO; +VITA100093 PO
[2022-01-07 00:17] LABS: BASO % 0.2 % (0.0-1.0); HEMATOCRIT 41.9 % (36.0-47.0); HEMOGLOBIN 14.1 g/dl (12.0-15.5); LYMPH # 1.3 10^3/uL (1.5-5.0); LYMPH % 11.9 % (24.0-44.0); MEAN CORPUSCULAR HEMOGLOBIN 28.5 pg (27.0-33.0); MEAN CORPUSCULAR HGB CONC 33.7 g/dl (32.0-36.5); MEAN CORPUSCULAR VOLUME 84.8 fl (80.0-96.0); MONO # 0.5 10^3/uL (0.0-0.8); MONO % 4.3 % (2.0-8.0); NEUTROPHILS # 8.7 10^3/uL (1.5-8.5); NEUTROPHILS % 82.7 % (36.0-66.0); PLATELET COUNT, AUTOMATED 265 10^3/uL (150-450); RED BLOOD COUNT 4.94 10^6/uL (4.00-5.40); WHITE BLOOD COUNT 10.5 10^3/uL (4.0-10.0)
[2022-01-07] MEDS ORDERED: ONDANSETRON 4MG 2ML VIAL IV ONE (00:20)
[2022-01-07] MEDS ORDERED: NS 1,000 ML IV ONE (00:20)
[2022-01-07] MEDS ORDERED: PANTOPRAZOLE 40MG VIAL IV ONE (00:30)
[2022-01-07] MEDS ORDERED: PIPERACILLIN/TAZOBACTAM SOD 4.5 GM in D5W MINI-BAG PLUS 50 ML IV ONE (00:45)
[2022-01-07] MEDS ORDERED: HALOPERIDOL 5MG/ML VIAL (J1630 PER 1) IV ONE (00:45)
[2022-01-07] MEDS ORDERED: NS IV ONE (00:45)
[2022-01-07] MEDS ORDERED: ACETAMINOPHEN 1000MG 100ML IV BTL (OFIRMEV) (J0131 PER 10MG) IV ONE (00:50)
[2022-01-07] MEDS ORDERED: ISOVUE-370 76% 100ML VIAL As Ordered ONE (00:56)
[2022-01-07 01:05] LABS: ALBUMIN 4.4 GM/DL (3.2-5.2); BILIRUBIN,DIRECT 0.2 MG/DL (0.0-0.2); CALCIUM LEVEL 9.9 MG/DL (8.5-10.1); CREATININE FOR GFR 1.47 MG/DL (0.55-1.30); GLOMERULAR FILTRATION RATE 40.7 (>58); POTASSIUM SERUM 4.1 MEQ/L (3.5-5.1); TOTAL PROTEIN 8.2 GM/DL (6.4-8.2)
[2022-01-07 01:08] LABS: CK-MB VALUE MASS 1.6 NG/ML (<3.6); MB/CK RELATIVE INDEX 0.63 (< OR =4)
[2022-01-07 01:43] LABS: AMPHETAMINES LEVEL URINE NEGATIVE (NEGATIVE); BARBITURATES URINE NEGATIVE (NEGATIVE); BENZODIAZEPINES URINE NEGATIVE (NEGATIVE); CANNABINOIDS URINE POSITIVE (NEGATIVE); COCAINE METABOLITE URINE NEGATIVE (NEGATIVE); METHADONE URINE NEGATIVE (NEGATIVE); OPIATES URINE NEGATIVE (NEGATIVE); PHENCYCLIDINE URINE NEGATIVE (NEGATIVE)
[2022-01-07] MEDS ORDERED: ONDA4TAB6 PO (03:52)
[2022-01-07] MEDS ORDERED: ONDANSETRON 4MG ORAL DISINTEGRATING TAB PO ONE (03:55)
[2022-01-07 04:13] VITALS: BP 128/76
== END 2022-01-07 04:18 | disposition home or self-care (01) ==
LOC: M ED 23:06
DX: F12.188 Cannabis abuse with other cannabis-induced disorder (principal); K76.0 Fatty (change of) liver, not elsewhere classified; K31.84 Gastroparesis; I25.2 Old myocardial infarction; E11.9 Type 2 diabetes mellitus without complications; I10 Essential (primary) hypertension; E78.5 Hyperlipidemia, unspecified; J30.89 Other allergic rhinitis; K21.9 Gastro-esophageal reflux disease without esophagitis; M54.50 Low back pain, unspecified; Z98.61 Coronary angioplasty status; Z79.4 Long term (current) use of insulin; Z79.899 Other long term (current) drug therapy; Z88.5 Allergy status to narcotic agent; Z91.040 Latex allergy status
CPT/HCPCS: 71046; 74177; 80048; 80076; 80307; 82550; 82553; 83605; 83690; 84484; 84702; 85025; 87040; 87486; 87581; 87633; 87798; 93005; 93041; 96365; 96366; 96375; 99284; C9113; J0131; J1630; J2405; J2543; Q9967

== ENCOUNTER 2022-01-09 09:13 | Inpatient (IN) | payer OTHER ==
[~2022-01-09 09:13] MED LIST changes: +ONDA4TAB6 PO
[2022-01-09] MEDS ORDERED: KETOROLAC 30 MG/ML 1ML VIAL IV ONE (10:00)
[2022-01-09] MEDS ORDERED: NS 1,000 ML IV ONE (10:00)
[2022-01-09] MEDS ORDERED: METOCLOPRAMIDE INJ 10MG/2ML VIAL (J2765 PER 1) IV ONE (10:00)
[2022-01-09 10:08] LABS: BASO % 0.1 % (0.0-1.0); HEMATOCRIT 43.2 % (36.0-47.0); HEMOGLOBIN 14.3 g/dl (12.0-15.5); LYMPH # 1.1 10^3/uL (1.5-5.0); LYMPH % 8.1 % (24.0-44.0); MEAN CORPUSCULAR HEMOGLOBIN 28.4 pg (27.0-33.0); MEAN CORPUSCULAR HGB CONC 33.1 g/dl (32.0-36.5); MEAN CORPUSCULAR VOLUME 85.7 fl (80.0-96.0); MONO # 0.8 10^3/uL (0.0-0.8); MONO % 5.7 % (2.0-8.0); NEUTROPHILS # 12.1 10^3/uL (1.5-8.5); NEUTROPHILS % 85.6 % (36.0-66.0); PLATELET COUNT, AUTOMATED 245 10^3/uL (150-450); RED BLOOD COUNT 5.04 10^6/uL (4.00-5.40); WHITE BLOOD COUNT 14.1 10^3/uL (4.0-10.0)
[2022-01-09 10:44] LABS: ALBUMIN 4.4 GM/DL (3.2-5.2); ALT/SGPT 33 U/L (12-78); AMYLASE 75 U/L (25-115); BILIRUBIN,DIRECT 0.2 MG/DL (0.0-0.2); BILIRUBIN,TOTAL 0.7 MG/DL (0.2-1.0); BLOOD UREA NITROGEN 31 MG/DL (7-18); CALCIUM LEVEL 9.2 MG/DL (8.5-10.1); CARBON DIOXIDE LEVEL 28 MEQ/L (21-32); CHLORIDE LEVEL 101 MEQ/L (98-107); CREATININE FOR GFR 1.05 MG/DL (0.55-1.30); GLOMERULAR FILTRATION RATE > 60.0 (>58); GLUCOSE, FASTING 150 MG/DL (70-100); LIPASE 146 U/L (73-393); POTASSIUM SERUM 3.5 MEQ/L (3.5-5.1); SODIUM LEVEL 138 MEQ/L (136-145); TOTAL PROTEIN 8.5 GM/DL (6.4-8.2)
[2022-01-09 10:57] LABS: ACETONE/KETONE 10.34 MG/DL (<2.81); HEMOGLOBIN A1c 7.9 %; MAGNESIUM LEVEL 2.2 MG/DL (1.8-2.4)
[2022-01-09] MEDS ORDERED: PANTOPRAZOLE 40MG VIAL IV ONE (12:15)
[2022-01-09] MEDS ORDERED: HALOPERIDOL 5MG/ML VIAL (J1630 PER 1) IV ONE (12:40)
[2022-01-09] MEDS ORDERED: PROMETHAZINE 25MG/ML 1ML VIAL IV ONE ×2 (12:40→17:00)
[2022-01-09] MEDS ORDERED: CAPSAICIN 0.025% CR 60 GM TOP ONE (12:45)
[2022-01-09] MEDS ORDERED: DEXTROSE 50% 50 ML SYRINGE IV PRN (14:30)
[2022-01-09] MEDS ORDERED: GLUCOSE 4GM CHEW TABLET PO PRN (14:30)
[2022-01-09] MEDS ORDERED: GLUCAGON INJ 1MG VIAL SC PRN (14:30)
[2022-01-09] MEDS ORDERED: CARV6.25 PO (15:08)
[2022-01-09] MEDS ORDERED: CYCL-707 PO (15:08)
[2022-01-09] MEDS ORDERED: ASPI-161 PO (15:08)
[2022-01-09] MEDS ORDERED: ONDA4TAB6 PO (15:08)
[2022-01-09] MEDS ORDERED: JANU100T PO (15:08)
[2022-01-09] MEDS ORDERED: ROSU20TA5 PO (15:08)
[2022-01-09] MEDS ORDERED: LOSA50TA28 PO (15:08)
[2022-01-09] MEDS ORDERED: HOME MED LIST COMPLETE! XX SCH (15:10)
[2022-01-09] MEDS ORDERED: KETOROLAC 30 MG/ML 1ML VIAL IV PRN (15:45)
[2022-01-09 16:00] VITALS: BP 149/81
[2022-01-09] MEDS: METOCLOPRAMIDE INJ 10MG/2ML VIAL (J2765 PER 1) IV SCH ×2 (16:10→20:59)
[2022-01-09] MEDS: NS 1,000 ML IV SCH (16:11)
[2022-01-09] MEDS: INSULIN LISPRO (NovoLOG) PER UNIT SC SCH (18:00)
[2022-01-09] MEDS ORDERED: cloNIDine HCL 0.1 MG/24 HR PATCH TOP SCH (18:00)
[2022-01-09] MEDS: NITROGLYCERIN 2% OINT 1 GM *U/D* PKT TOP SCH (18:06)
[2022-01-09] MEDS: LEVEMIR (INSULIN DETEMIR) 1 UNITS/0.01ML SC SCH ×2 (20:59→21:00)
[2022-01-09] MEDS: HEPARIN SOD (PORCINE) 5000UNITS/ML 1ML VIAL/SYRINGE SQ SCH (21:00)
[2022-01-09 22:05] VITALS: BP 159/93
[2022-01-10] MEDS: NS 1,000 ML IV SCH (01:01)
[2022-01-10] MEDS: METOCLOPRAMIDE INJ 10MG/2ML VIAL (J2765 PER 1) IV SCH ×4 (04:32→22:20)
[2022-01-10] MEDS: NITROGLYCERIN 2% OINT 1 GM *U/D* PKT TOP SCH (04:34)
[2022-01-10] MEDS: INSULIN LISPRO (NovoLOG) PER UNIT SC SCH ×4 (05:40→17:09)
[2022-01-10] MEDS ORDERED: NITROGLYCERIN 2% OINT 1 GM *U/D* PKT TOP SCH (06:00)
[2022-01-10 06:07] VITALS: BP 169/96
[2022-01-10 07:02] LABS: HEMATOCRIT 38.7 % (36.0-47.0); HEMOGLOBIN 12.8 g/dl (12.0-15.5); MEAN CORPUSCULAR HEMOGLOBIN 28.9 pg (27.0-33.0); MEAN CORPUSCULAR HGB CONC 33.1 g/dl (32.0-36.5); MEAN CORPUSCULAR VOLUME 87.4 fl (80.0-96.0); PLATELET COUNT, AUTOMATED 212 10^3/uL (150-450); RED BLOOD COUNT 4.43 10^6/uL (4.00-5.40); WHITE BLOOD COUNT 11.1 10^3/uL (4.0-10.0)
[2022-01-10 07:42] LABS: BLOOD UREA NITROGEN 27 MG/DL (7-18); CALCIUM LEVEL 8.7 MG/DL (8.5-10.1); CARBON DIOXIDE LEVEL 28 MEQ/L (21-32); CHLORIDE LEVEL 106 MEQ/L (98-107); CREATININE FOR GFR 0.93 MG/DL (0.55-1.30); GLOMERULAR FILTRATION RATE > 60.0 (>58); GLUCOSE, FASTING 138 MG/DL (70-100); POTASSIUM SERUM 3.7 MEQ/L (3.5-5.1); SODIUM LEVEL 138 MEQ/L (136-145)
[2022-01-10] MEDS: PANTOPRAZOLE 40MG VIAL IV SCH (08:51)
[2022-01-10] MEDS: HEPARIN SOD (PORCINE) 5000UNITS/ML 1ML VIAL/SYRINGE SQ SCH ×2 (08:51→20:27)
[2022-01-10] MEDS ORDERED: cloNIDine HCL 0.3 MG/24 HR PATCH TOP SCH (09:00)
[2022-01-10] MEDS ORDERED: PANTOPRAZOLE 40MG VIAL IV SCH (09:00)
[2022-01-10] MEDS ORDERED: INFLUENZA QUADRIVALENT PF VACCINE 0.5ML SYRINGE IM.IMMUN ONE (09:00)
[2022-01-10] MEDS ORDERED: CYCLOBENZAPRINE 10MG TABLET PO PRN (09:20)
[2022-01-10] MEDS ORDERED: ONDANSETRON 4MG ORAL DISINTEGRATING TAB PO PRN (09:20)
[2022-01-10] MEDS: ROSUVASTATIN 10 MG TAB (CRESTOR) PO SCH (10:10)
[2022-01-10] MEDS: VITAMIN D 1,000 INTERNATIONAL UNITS TABLET PO SCH (10:10)
[2022-01-10] MEDS: ASPIRIN 81MG ENTERIC TABLET PO SCH (10:10)
[2022-01-10] MEDS: SITagliptin 50 MG TAB (JANUVIA) PO SCH (10:11)
[2022-01-10] MEDS: LOSARTAN 50MG TABLET PO SCH (10:11)
[2022-01-10] MEDS ORDERED: KCL 10MEQ IN D5/0.45NS 1000ML 1,000 ML IV SCH ×2 (11:00)
[2022-01-10 14:00] VITALS: BP 169/98
[2022-01-10] MEDS: LEVEMIR (INSULIN DETEMIR) 1 UNITS/0.01ML SC SCH (20:09)
[2022-01-10] MEDS: CARVedilol 6.25 MG TAB PO SCH (20:27)
[2022-01-10] MEDS ORDERED: INSULIN LISPRO (NovoLOG) PER UNIT SC SCH (21:00)
[2022-01-10] MEDS ORDERED: LEVEMIR (INSULIN DETEMIR) 1 UNITS/0.01ML SC SCH (21:00)
[2022-01-10 22:00] VITALS: BP 160/96
[2022-01-11] MEDS: METOCLOPRAMIDE INJ 10MG/2ML VIAL (J2765 PER 1) IV SCH ×2 (04:05→09:14)
[2022-01-11 06:00] VITALS: BP 164/97
[2022-01-11 06:41] LABS: HEMATOCRIT 39.3 % (36.0-47.0); HEMOGLOBIN 13.2 g/dl (12.0-15.5); MEAN CORPUSCULAR HEMOGLOBIN 28.4 pg (27.0-33.0); MEAN CORPUSCULAR HGB CONC 33.6 g/dl (32.0-36.5); MEAN CORPUSCULAR VOLUME 84.7 fl (80.0-96.0); PLATELET COUNT, AUTOMATED 215 10^3/uL (150-450); RED BLOOD COUNT 4.64 10^6/uL (4.00-5.40); WHITE BLOOD COUNT 8.2 10^3/uL (4.0-10.0)
[2022-01-11 07:18] LABS: CALCIUM LEVEL 8.9 MG/DL (8.5-10.1); CREATININE FOR GFR 1.13 MG/DL (0.55-1.30); GLOMERULAR FILTRATION RATE 55.2 (>58); POTASSIUM SERUM 3.3 MEQ/L (3.5-5.1)
[2022-01-11] MEDS: INSULIN LISPRO (NovoLOG) PER UNIT SC SCH ×2 (07:30→11:39)
[2022-01-11] MEDS ORDERED: POTASSIUM CHLORIDE 10MEQ SR TABLET PO ONE (08:00)
[2022-01-11] MEDS ORDERED: PANT40TA29 PO (08:28)
[2022-01-11] MEDS ORDERED: METO5TAB2 PO (08:28)
[2022-01-11] MEDS: PANTOPRAZOLE 40MG VIAL IV SCH (09:14)
[2022-01-11] MEDS: VITAMIN D 1,000 INTERNATIONAL UNITS TABLET PO SCH (09:15)
[2022-01-11] MEDS: HEPARIN SOD (PORCINE) 5000UNITS/ML 1ML VIAL/SYRINGE SQ SCH (09:15)
[2022-01-11] MEDS: SITagliptin 50 MG TAB (JANUVIA) PO SCH (09:16)
[2022-01-11] MEDS: CARVedilol 6.25 MG TAB PO SCH (09:16)
[2022-01-11] MEDS: ASPIRIN 81MG ENTERIC TABLET PO SCH (09:16)
[2022-01-11] MEDS: ROSUVASTATIN 10 MG TAB (CRESTOR) PO SCH (09:16)
[2022-01-11 09:17] VITALS: BP 161/95
[2022-01-11] MEDS: LOSARTAN 50MG TABLET PO SCH (09:17)
== END 2022-01-11 11:45 | disposition home or self-care (01) | DRG 74 ==
LOC: M ED 09:13 → M ED INP 14:20 → ENRESERV 15:12 → M MS5PR 16:05
PROVIDERS: ADMIT General Practice; ATTEND Internal Medicine Nephrology
DX: E11.43 Type 2 diabetes mellitus with diabetic autonomic (poly)neuropathy (principal); K21.9 Gastro-esophageal reflux disease without esophagitis; I10 Essential (primary) hypertension; I25.2 Old myocardial infarction; R11.15 Cyclical vomiting syndrome unrelated to migraine; F12.90 Cannabis use, unspecified, uncomplicated; Z79.899 Other long term (current) drug therapy; Z79.82 Long term (current) use of aspirin; Z88.5 Allergy status to narcotic agent; Z91.040 Latex allergy status; F41.9 Anxiety disorder, unspecified

== ENCOUNTER 2022-05-30 11:14 | Emergency (ER) | payer BC, OTHER ==
[~2022-05-30] VITALS: Ht 162.6 cm; Wt 67.3 kg
[~2022-05-30 11:14] MED LIST changes: +ASPI-161 PO; +CARV6.25 PO; +CYCL-707 PO; +JANU100T PO; +LOSA50TA28 PO; +METO5TAB2 PO; +ROSU20TA5 PO
[2022-05-30] MEDS ORDERED: CARVedilol 6.25 MG TAB PO ONE (12:15)
[2022-05-30] MEDS ORDERED: ONDANSETRON 4MG 2ML VIAL IV ONE ×2 (12:15→17:05)
[2022-05-30] MEDS ORDERED: NS 1,000 ML IV ONE (12:15)
[2022-05-30] MEDS ORDERED: MORPHINE 4 MG/ML 1ML VIAL IV ONE ×2 (12:20→17:05)
[2022-05-30 12:56] LABS: LIPASE 43 U/L (12-53)
[2022-05-30 13:01] LABS: BASO % 0.1 % (0.0-1.0); HEMATOCRIT 41.1 % (36.0-47.0); HEMOGLOBIN 13.9 g/dl (12.0-15.5); LYMPH # 0.8 10^3/uL (1.5-5.0); MEAN CORPUSCULAR HEMOGLOBIN 28.8 pg (27.0-33.0); MEAN CORPUSCULAR HGB CONC 33.8 g/dl (32.0-36.5); MEAN CORPUSCULAR VOLUME 85.1 fl (80.0-96.0); MONO # 0.5 10^3/uL (0.0-0.8); MONO % 3.4 % (2.0-8.0); NEUTROPHILS # 12.4 10^3/uL (1.5-8.5); PLATELET COUNT, AUTOMATED 275 10^3/uL (150-450); RED BLOOD COUNT 4.83 10^6/uL (4.00-5.40); WHITE BLOOD COUNT 13.7 10^3/uL (4.0-10.0)
[2022-05-30 13:02] LABS: ALBUMIN 4.4 G/DL (3.2-5.2); ALKALINE PHOSPHATASE 75 U/L (46-116); ALT/SGPT 24 U/L (7.0-40); AST/SGOT 30 U/L (<34); BILIRUBIN,DIRECT 0.2 MG/DL (<0.4); BILIRUBIN,TOTAL 0.9 MG/DL (0.3-1.2); BLOOD UREA NITROGEN 50 MG/DL (9-23); CALCIUM LEVEL 10.2 MG/DL (8.5-10.1); CARBON DIOXIDE LEVEL 26 MMOL/L (20-31); CHLORIDE LEVEL 98 MMOL/L (98-107); CK-MB VALUE MASS 1.2 NG/ML (<3.6); CREATININE FOR GFR 1.08 MG/DL (0.55-1.30); GLOMERULAR FILTRATION RATE 57.9 (>58); GLUCOSE, FASTING 321 MG/DL (60-100); POTASSIUM SERUM 4.1 MMOL/L (3.5-5.1); SODIUM LEVEL 138 MMOL/L (136-145); THYROID STIMULATING HORMONE 0.593 uIU/ML (0.55-4.78); TOTAL PROTEIN 8.3 G/DL (5.7-8.2)
[2022-05-30 13:06] LABS: HCG, SERUM QUALITATIVE NEGATIVE (NEGATIVE)
[2022-05-30 13:07] LABS: CPK CREATINE PHOSPHOKINASE 233 U/L (34-145); MB/CK RELATIVE INDEX 0.51 (< OR =4)
[2022-05-30 13:08] LABS: CK-MB VALUE MASS < 1.0 NG/ML (<3.6)
[2022-05-30 13:16] LABS: CPK CREATINE PHOSPHOKINASE 241 U/L (34-145); MB/CK RELATIVE INDEX 0.41 (< OR =4)
[2022-05-30] MEDS ORDERED: ISOVUE-370 76% 100ML VIAL As Ordered ONE (13:18)
[2022-05-30 13:54] LABS: CPK CREATINE PHOSPHOKINASE 220 U/L (34-145); MB/CK RELATIVE INDEX 0.45 (< OR =4)
[2022-05-30 14:18] VITALS: BP 198/86
[2022-05-30 15:43] LABS: RSV AMPLIFICATION NEGATIVE (NEGATIVE)
[2022-05-30] MEDS ORDERED: HEPARIN SOD (PORCINE) 5000UNITS/ML 1ML VIAL/SYRINGE IV ONE (15:55)
[2022-05-30] MEDS ORDERED: HEPARIN DRIP 25,000 UNITS in IV 1 EA IV SCH (15:55)
[2022-05-30 16:41] LABS: INR 1.03; PROTHROMBIN TIME 13.7 SECONDS (12.5-14.5)
[2022-05-30 17:24] VITALS: BP 167/98
== END 2022-05-30 17:34 | disposition short-term general hospital (02) ==
LOC: M ED 11:14
DX: I74.11 Embolism and thrombosis of thoracic aorta (principal); I16.0 Hypertensive urgency; I25.2 Old myocardial infarction; E11.9 Type 2 diabetes mellitus without complications; F41.9 Anxiety disorder, unspecified; K21.9 Gastro-esophageal reflux disease without esophagitis; I10 Essential (primary) hypertension; Z88.5 Allergy status to narcotic agent; Z91.040 Latex allergy status; Z79.82 Long term (current) use of aspirin; Z79.811 Long term (current) use of aromatase inhibitors; Z79.4 Long term (current) use of insulin; Z79.899 Other long term (current) drug therapy; Z79.83 Long term (current) use of bisphosphonates
CPT/HCPCS: 36415; 71045; 71275; 74177; 80048; 80076; 82550; 82553; 83690; 84443; 84484; 84703; 85025; 85610; 85730; 87631; 93005; 93041; 94760; 96365; 96375; 96376; 99291; 99292; J1644; J2270; J2405

== ENCOUNTER 2022-07-04 09:49 | Emergency (ER) | payer BC ==
[~2022-07-04] VITALS: Ht 162.6 cm; Wt 69.0 kg
[2022-07-04 10:31] LABS: BASO % 0.5 % (0.0-1.0); EOS # 0.3 10^3/uL (0.0-0.5); EOS % 4.6 % (0.0-3.0); HEMATOCRIT 37.9 % (36.0-47.0); HEMOGLOBIN 12.7 g/dl (12.0-15.5); LYMPH # 1.6 10^3/uL (1.5-5.0); LYMPH % 25.2 % (24.0-44.0); MEAN CORPUSCULAR HEMOGLOBIN 28.9 pg (27.0-33.0); MEAN CORPUSCULAR HGB CONC 33.5 g/dl (32.0-36.5); MEAN CORPUSCULAR VOLUME 86.1 fl (80.0-96.0); MONO # 0.6 10^3/uL (0.0-0.8); NEUTROPHILS # 3.8 10^3/uL (1.5-8.5); NEUTROPHILS % 60.5 % (36.0-66.0); PLATELET COUNT, AUTOMATED 279 10^3/uL (150-450); WHITE BLOOD COUNT 6.2 10^3/uL (4.0-10.0)
[2022-07-04 10:39] LABS: INR 0.96
[2022-07-04 10:40] LABS: PARTIAL THROMBOPLASTIN TIME 28.9 SECONDS (24.8-34.2)
[2022-07-04] MEDS ORDERED: ONDANSETRON 4MG 2ML VIAL IV ONE (10:40)
[2022-07-04] MEDS ORDERED: MORPHINE 4 MG/ML 1ML VIAL IV PRN (10:40)
[2022-07-04] MEDS ORDERED: ISOVUE-370 76% 100ML VIAL As Ordered ONE (10:54)
[2022-07-04 11:08] LABS: LIPASE 83 U/L (12-53)
[2022-07-04 11:09] LABS: AMYLASE 108 U/L (30-118)
[2022-07-04 11:13] LABS: ALBUMIN 3.8 G/DL (3.2-5.2); ALKALINE PHOSPHATASE 66 U/L (46-116); ALT/SGPT 17 U/L (7.0-40); AST/SGOT 16 U/L (<34); BILIRUBIN,DIRECT 0.1 MG/DL (<0.4); BILIRUBIN,TOTAL 0.5 MG/DL (0.3-1.2); BLOOD UREA NITROGEN 24 MG/DL (9-23); CALCIUM LEVEL 9.5 MG/DL (8.5-10.1); CARBON DIOXIDE LEVEL 26 MMOL/L (20-31); CHLORIDE LEVEL 104 MMOL/L (98-107); CK-MB VALUE MASS < 1.0 NG/ML (<3.6); CREATININE FOR GFR 0.97 MG/DL (0.55-1.30); GLOMERULAR FILTRATION RATE > 60.0 (>58); GLUCOSE, FASTING 140 MG/DL (60-100); POTASSIUM SERUM 4.8 MMOL/L (3.5-5.1); SODIUM LEVEL 137 MMOL/L (136-145); TOTAL PROTEIN 7.1 G/DL (5.7-8.2)
[2022-07-04 12:00] LABS: CPK CREATINE PHOSPHOKINASE 153 U/L (34-145); MB/CK RELATIVE INDEX 0.65 (< OR =4)
[2022-07-04 12:50] LABS: RSV AMPLIFICATION NEGATIVE (NEGATIVE)
[2022-07-04] MEDS ORDERED: PERC5TAB12 PO (14:08)
[2022-07-04 14:16] VITALS: BP 155/81
== END 2022-07-04 14:23 | disposition home or self-care (01) ==
LOC: M ED 09:49
DX: R10.9 Unspecified abdominal pain (principal); I74.9 Embolism and thrombosis of unspecified artery; E11.9 Type 2 diabetes mellitus without complications; J30.89 Other allergic rhinitis; Z79.01 Long term (current) use of anticoagulants; Z79.4 Long term (current) use of insulin; Z79.82 Long term (current) use of aspirin; Z79.899 Other long term (current) drug therapy; Z88.5 Allergy status to narcotic agent; Z91.040 Latex allergy status
CPT/HCPCS: 74174; 80047; 80048; 80076; 81001; 82150; 82550; 82553; 83605; 83690; 84484; 85025; 85610; 85730; 87631; 93005; 93041; 96374; 96375; 99284; J2405; Q9967

== ENCOUNTER → 2022-08-10 | Outpatient (REF) | payer BC ==
[~2022-08-10] MED LIST changes: -COZA50TA PO; +LOSA-528 PO; +PERC5TAB12 PO
[2022-08-10 13:23] LABS: BASO % 0.4 % (0.0-1.0); EOS # 0.2 10^3/uL (0.0-0.5); EOS % 2.6 % (0.0-3.0); HEMATOCRIT 40.3 % (36.0-47.0); HEMOGLOBIN 13.2 g/dl (12.0-15.5); LYMPH # 1.7 10^3/uL (1.5-5.0); LYMPH % 24.5 % (24.0-44.0); MEAN CORPUSCULAR HEMOGLOBIN 28.5 pg (27.0-33.0); MEAN CORPUSCULAR HGB CONC 32.8 g/dl (32.0-36.5); MONO # 0.4 10^3/uL (0.0-0.8); MONO % 6.3 % (2.0-8.0); NEUTROPHILS # 4.5 10^3/uL (1.5-8.5); NEUTROPHILS % 65.9 % (36.0-66.0); PLATELET COUNT, AUTOMATED 293 10^3/uL (150-450); RED BLOOD COUNT 4.63 10^6/uL (4.00-5.40); WHITE BLOOD COUNT 6.9 10^3/uL (4.0-10.0)
== END ==
LOC: M LAB REF 12:27
PROVIDERS: ATTEND Pediatrics
DX: R10.11 Right upper quadrant pain (principal)

== ENCOUNTER → 2022-08-12 | Outpatient (CLI) | payer BC | LOC: M WHC 10:43 | PROVIDERS: ATTEND Pediatrics | DX: R10.11 Right upper quadrant pain (principal); K80.20 Calculus of gallbladder without cholecystitis without obstruction; N28.89 Other specified disorders of kidney and ureter ==

== ENCOUNTER → 2022-08-12 | Outpatient (CLI) | payer BC ==
[2022-08-12 14:38] LABS: CALCIUM LEVEL 9.2 MG/DL (8.5-10.1); CREATININE FOR GFR 1.28 MG/DL (0.55-1.30); GLOMERULAR FILTRATION RATE 47.6 (>58); POTASSIUM SERUM 4.6 MMOL/L (3.5-5.1)
== END ==
LOC: M PLALAB 11:50
PROVIDERS: ATTEND Nurse Practitioner Family
DX: E11.65 Type 2 diabetes mellitus with hyperglycemia (principal)

== ENCOUNTER → 2022-08-26 | Outpatient (REF) | payer BC ==
[2022-08-26 13:34] LABS: CREATININE FOR GFR 1.35 MG/DL (0.55-1.30); GLOMERULAR FILTRATION RATE 44.7 (>58); POTASSIUM SERUM 4.7 MMOL/L (3.5-5.1)
== END ==
LOC: M LAB REF 12:21
PROVIDERS: ATTEND Pediatrics
DX: N28.9 Disorder of kidney and ureter, unspecified (principal)

== ENCOUNTER 2022-10-18 09:37 | Emergency (ER) | payer BC ==
[~2022-10-18] VITALS: Ht 162.6 cm; Wt 67.5 kg
[~2022-10-18 09:37] MED LIST changes: +CARV12.5 PO; +ELIQ5TAB PO; +JARD1TAB PO; -ROSU20TA5 PO; +ROSU20TA61 PO
[2022-10-18 12:22] LABS: BASO % 0.2 % (0.0-1.0); EOS % 0.1 % (0.0-3.0); HEMATOCRIT 38.4 % (36.0-47.0); HEMOGLOBIN 12.6 g/dl (12.0-15.5); LYMPH # 0.9 10^3/uL (1.5-5.0); LYMPH % 10.3 % (24.0-44.0); MEAN CORPUSCULAR HEMOGLOBIN 27.6 pg (27.0-33.0); MEAN CORPUSCULAR HGB CONC 32.8 g/dl (32.0-36.5); MONO # 0.4 10^3/uL (0.0-0.8); NEUTROPHILS # 7.5 10^3/uL (1.5-8.5); NEUTROPHILS % 84.9 % (36.0-66.0); PLATELET COUNT, AUTOMATED 346 10^3/uL (150-450); RED BLOOD COUNT 4.57 10^6/uL (4.00-5.40); WHITE BLOOD COUNT 8.8 10^3/uL (4.0-10.0)
[2022-10-18 12:32] LABS: INR 1.07; PROTHROMBIN TIME 14.1 SECONDS (12.5-14.5)
[2022-10-18 12:33] LABS: PARTIAL THROMBOPLASTIN TIME 25.2 SECONDS (24.8-34.2)
[2022-10-18 12:47] LABS: ALBUMIN 4.2 G/DL (3.2-5.2); BILIRUBIN,DIRECT 0.2 MG/DL (<0.4); BILIRUBIN,TOTAL 0.7 MG/DL (0.3-1.2); CALCIUM LEVEL 10.4 MG/DL (8.5-10.1); CREATININE FOR GFR 1.21 MG/DL (0.55-1.30); GLOMERULAR FILTRATION RATE 50.8 (>58); POTASSIUM SERUM 4.3 MMOL/L (3.5-5.1); TOTAL PROTEIN 7.7 G/DL (5.7-8.2)
[2022-10-18] MEDS ORDERED: MORPHINE 4 MG/ML 1ML VIAL IV ONE (13:05)
[2022-10-18] MEDS ORDERED: METOCLOPRAMIDE INJ 10MG/2ML VIAL IV ONE (13:05)
[2022-10-18] MEDS ORDERED: PANTOPRAZOLE 40MG VIAL IV ONE (13:05)
[2022-10-18] MEDS ORDERED: ISOVUE-370 76% 100ML VIAL As Ordered ONE (13:58)
[2022-10-18 14:42] VITALS: TEMP 98.1
[2022-10-18] MEDS ORDERED: REGL10TA6 PO (16:27)
[2022-10-18] MEDS ORDERED: ONDANSETRON 4MG 2ML VIAL IV ONE (16:45)
[2022-10-18] MEDS ORDERED: ONDA4TAB6 PO (16:46)
[2022-10-18 17:20] VITALS: BP 182/92; O2SAT 99
== END 2022-10-18 16:43 | disposition home or self-care (01) ==
LOC: M ED 09:37
DX: K31.84 Gastroparesis (principal); E11.9 Type 2 diabetes mellitus without complications; I25.2 Old myocardial infarction; I10 Essential (primary) hypertension; F41.9 Anxiety disorder, unspecified; J30.89 Other allergic rhinitis; K76.0 Fatty (change of) liver, not elsewhere classified; Z79.01 Long term (current) use of anticoagulants; Z79.4 Long term (current) use of insulin; Z79.899 Other long term (current) drug therapy; Z88.5 Allergy status to narcotic agent; Z91.040 Latex allergy status
CPT/HCPCS: 74177; 80048; 80076; 81001; 83605; 83690; 84702; 85025; 85610; 85730; 96374; 96375; 99284; C9113; J2405; J2765; Q9967

== ENCOUNTER 2022-10-19 17:00 | Emergency (ER) | payer BC ==
[~2022-10-19] VITALS: Ht 162.6 cm; Wt 65.5 kg
[2022-10-19 17:01] VITALS: TEMP 97.2
[2022-10-19 17:56] LABS: BASO % 0.2 % (0.0-1.0); HEMATOCRIT 35.1 % (36.0-47.0); HEMOGLOBIN 11.7 g/dl (12.0-15.5); LYMPH # 1.1 10^3/uL (1.5-5.0); LYMPH % 8.3 % (24.0-44.0); MEAN CORPUSCULAR HEMOGLOBIN 27.8 pg (27.0-33.0); MEAN CORPUSCULAR HGB CONC 33.3 g/dl (32.0-36.5); MEAN CORPUSCULAR VOLUME 83.4 fl (80.0-96.0); MONO # 0.9 10^3/uL (0.0-0.8); MONO % 6.6 % (2.0-8.0); NEUTROPHILS % 84.3 % (36.0-66.0); PLATELET COUNT, AUTOMATED 332 10^3/uL (150-450); RED BLOOD COUNT 4.21 10^6/uL (4.00-5.40); WHITE BLOOD COUNT 13.1 10^3/uL (4.0-10.0)
[2022-10-19 18:19] LABS: CALCIUM LEVEL 9.3 MG/DL (8.5-10.1); CK-MB VALUE MASS 4.6 NG/ML (<3.6); CREATININE FOR GFR 1.06 MG/DL (0.55-1.30); GLOMERULAR FILTRATION RATE 59.2 (>58); MB/CK RELATIVE INDEX 1.97 (< OR =4); POTASSIUM SERUM 4.7 MMOL/L (3.5-5.1)
[2022-10-19] MEDS ORDERED: ONDANSETRON 4MG 2ML VIAL IV ONE (18:20)
[2022-10-19] MEDS ORDERED: MORPHINE 4 MG/ML 1ML VIAL IV ONE (18:20)
[2022-10-19] MEDS ORDERED: ASPIRIN 81MG CHEW TABLET PO ONE (18:25)
[2022-10-19] MEDS ORDERED: ASPIRIN 81MG CHEW TABLET As Ordered ONE (18:26)
[2022-10-19] MEDS: NITROGLYCERIN 0.4MG SUBL TABLET SL PRN ×2 (18:29→18:50)
[2022-10-19] MEDS ORDERED: HEPARIN DRIP 25,000 UNITS in IV 1 EA IV SCH (18:40)
[2022-10-19] MEDS ORDERED: HEPARIN SOD (PORCINE) 5000UNITS/ML 1ML VIAL/SYRINGE IV ONE (18:40)
[2022-10-19 18:50] VITALS: BP 158/96
[2022-10-19 18:52] LABS: ALBUMIN 4.1 G/DL (3.2-5.2); BILIRUBIN,DIRECT 0.1 MG/DL (<0.4); BILIRUBIN,TOTAL 0.6 MG/DL (0.3-1.2); TOTAL PROTEIN 7.7 G/DL (5.7-8.2)
[2022-10-19] MEDS ORDERED: METOCLOPRAMIDE INJ 10MG/2ML VIAL IV ONE (19:00)
[2022-10-19 19:13] LABS: INR 1.01; PARTIAL THROMBOPLASTIN TIME 23.4 SECONDS (24.8-34.2); PROTHROMBIN TIME 13.5 SECONDS (12.5-14.5)
[2022-10-19 19:30] VITALS: BP 130/74; O2SAT 100
== END 2022-10-19 19:55 | disposition short-term general hospital (02) ==
LOC: M ED 17:00
DX: I21.4 Non-ST elevation (NSTEMI) myocardial infarction (principal); K31.84 Gastroparesis; I25.2 Old myocardial infarction; E11.9 Type 2 diabetes mellitus without complications; I10 Essential (primary) hypertension; J30.89 Other allergic rhinitis; Z95.5 Presence of coronary angioplasty implant and graft; Z79.01 Long term (current) use of anticoagulants; Z79.4 Long term (current) use of insulin; Z79.899 Other long term (current) drug therapy; Z88.5 Allergy status to narcotic agent; Z91.040 Latex allergy status
CPT/HCPCS: 71045; 80048; 80076; 82150; 82550; 82553; 83690; 84484; 85025; 85610; 85730; 93005; 93041; 94760; 96374; 96375; 96376; 99285; J2405; J2765

== ENCOUNTER → 2023-01-31 | Outpatient (CLI) | payer BC | LOC: M WHC 15:56 | PROVIDERS: ATTEND Pediatrics | DX: Z12.31 Encounter for screening mammogram for malignant neoplasm of breast (principal); Z53.9 Procedure and treatment not carried out, unspecified reason ==

== ENCOUNTER → 2023-02-08 | Outpatient (CLI) | payer BC | LOC: M WHC 10:18 | PROVIDERS: ATTEND Pediatrics | DX: R92.1 Mammographic calcification found on diagnostic imaging of breast (principal) | CPT/HCPCS: 77066; G0279 ==

== ENCOUNTER → 2023-02-14 | Outpatient (REF) | payer BC ==
[~2023-02-14] MED LIST changes: +CARV25TA PO; +NITR0.4S14 SL; +PROM25TA12 PO
[2023-02-14 18:11] LABS: ALBUMIN 4.1 G/DL (3.2-5.2); BILIRUBIN,TOTAL 0.4 MG/DL (0.3-1.2); CALCIUM LEVEL 9.5 MG/DL (8.5-10.1); CHOLESTEROL RISK RATIO 2.93 (<5); CREATININE FOR GFR 1.34 MG/DL (0.55-1.30); GLOMERULAR FILTRATION RATE 45.1 (>58); HDL CHOLESTEROL 70.5 MG/DL (>40); LDL CHOLESTEROL 99.7 MG/DL (<100); NON-HDL-C 136.5 MG/DL; POTASSIUM SERUM 4.5 MMOL/L (3.5-5.1); THYROID STIMULATING HORMONE 2.481 uIU/ML (0.55-4.78); TOTAL PROTEIN 7.7 G/DL (5.7-8.2)
[2023-02-14 18:12] LABS: BASO % 0.6 % (0.0-1.0); EOS # 0.3 10^3/uL (0.0-0.5); EOS % 4.6 % (0.0-3.0); HEMATOCRIT 42.5 % (36.0-47.0); LYMPH # 1.7 10^3/uL (1.5-5.0); LYMPH % 24.1 % (24.0-44.0); MEAN CORPUSCULAR HEMOGLOBIN 27.3 pg (27.0-33.0); MEAN CORPUSCULAR HGB CONC 32.9 g/dl (32.0-36.5); MEAN CORPUSCULAR VOLUME 82.8 fl (80.0-96.0); MONO # 0.5 10^3/uL (0.0-0.8); NEUTROPHILS # 4.5 10^3/uL (1.5-8.5); NEUTROPHILS % 63.4 % (36.0-66.0); PLATELET COUNT, AUTOMATED 270 10^3/uL (150-450); RED BLOOD COUNT 5.13 10^6/uL (4.00-5.40); WHITE BLOOD COUNT 7.1 10^3/uL (4.0-10.0)
== END ==
LOC: M LAB REF 16:14
PROVIDERS: ATTEND Pediatrics
DX: Z01.818 Encounter for other preprocedural examination (principal); E78.5 Hyperlipidemia, unspecified

== ENCOUNTER → 2023-02-21 | Day surgery (SDC) | payer BC ==
[~2023-02-21] VITALS: Ht 162.6 cm; Wt 70.8 kg
[~2023-02-21] MED LIST changes: +ACETAMINOPHEN 1000MG 100ML IV BAG As Ordered ONE; +KETOROLAC 60MG 2ML VIAL As Ordered ONE; +LIDOCAINE 2% 100MG/5ML SDV (FOR ANES.) As Ordered ONE; +LR 1,000 ML IV SCH; +MIDAZOLAM INJ 2MG/2ML VIAL As Ordered ONE; +MORPHINE 2 MG/ML 1ML VIAL IV PRN; +ONDANSETRON 4MG 2ML VIAL As Ordered ONE; +ONDANSETRON 4MG 2ML VIAL IV PRN; +ROCURONIUM BROMIDE 50MG/5ML VIAL As Ordered ONE; +SUGAMMADEX SODIUM 500 MG/5 ML VIAL (BRIDION) As Ordered ONE; +ceFAZolin SOD 2 GM in IV 1 EA IV ONE; +fentaNYL 100 MCG/2 ML INJECTION As Ordered ONE; +fentaNYL 100 MCG/2 ML INJECTION IV PRN; +oxyCODONE 5MG TAB PO PRN; +propofoL 200 MG/20 ML VIAL As Ordered ONE
[2023-02-21 15:40] VITALS: BP 167/96; TEMP 97.5; O2SAT 97
== END | disposition home or self-care (01) ==
LOC: M SDC 08:59
PROVIDERS: ATTEND Surgery
DX: K80.20 Calculus of gallbladder without cholecystitis without obstruction (principal); I10 Essential (primary) hypertension; E11.9 Type 2 diabetes mellitus without complications; E78.5 Hyperlipidemia, unspecified; I73.9 Peripheral vascular disease, unspecified; Z98.61 Coronary angioplasty status; J30.2 Other seasonal allergic rhinitis; Z88.5 Allergy status to narcotic agent; Z79.01 Long term (current) use of anticoagulants; Z79.4 Long term (current) use of insulin; Z79.899 Other long term (current) drug therapy; K21.9 Gastro-esophageal reflux disease without esophagitis
CPT/HCPCS: 47562; 81025; 88304; J0131; J0665; J0690; J1100; J1885; J2250; J2405; J3010

== ENCOUNTER 2023-07-23 09:49 | Emergency (ER) | payer BC ==
[~2023-07-23] VITALS: Ht 162.6 cm; Wt 65.8 kg
[~2023-07-23 09:49] MED LIST changes: -ACETAMINOPHEN 1000MG 100ML IV BAG As Ordered ONE; -ASPI-161 PO; +ASPI-615 PO; -KETOROLAC 60MG 2ML VIAL As Ordered ONE; -LIDOCAINE 2% 100MG/5ML SDV (FOR ANES.) As Ordered ONE; -LR 1,000 ML IV SCH; -MIDAZOLAM INJ 2MG/2ML VIAL As Ordered ONE; -MORPHINE 2 MG/ML 1ML VIAL IV PRN; -ONDANSETRON 4MG 2ML VIAL As Ordered ONE; -ONDANSETRON 4MG 2ML VIAL IV PRN; -ROCURONIUM BROMIDE 50MG/5ML VIAL As Ordered ONE; -SUGAMMADEX SODIUM 500 MG/5 ML VIAL (BRIDION) As Ordered ONE; -ceFAZolin SOD 2 GM in IV 1 EA IV ONE; -fentaNYL 100 MCG/2 ML INJECTION As Ordered ONE; -fentaNYL 100 MCG/2 ML INJECTION IV PRN; -oxyCODONE 5MG TAB PO PRN; -propofoL 200 MG/20 ML VIAL As Ordered ONE
[2023-07-23 10:57] LABS: VENOUS BASE EXCESS 2.4 (-2.0-2.0); VENOUS HCO3 27.9 MMOL/L (23.0-27.0); VENOUS O2 SATURATION 87.7 % (60.0-80.0); VENOUS PARTIAL PRESSURE CO2 46.5 mmHg (38.0-50.0); VENOUS PARTIAL PRESSURE O2 52.5 mmHg (30.0-50.0); VENOUS PH 7.396 UNITS (7.330-7.430); VENOUS STANDARD HCO3 26.4 MMOL/L; VENOUS TOTAL CO2 29.3 MMOL/L (24.0-28.0)
[2023-07-23 11:01] LABS: BASO % 0.1 % (0.0-1.0); HEMATOCRIT 36.9 % (36.0-47.0); HEMOGLOBIN 12.1 g/dl (12.0-15.5); LYMPH # 0.8 10^3/uL (1.5-5.0); LYMPH % 6.1 % (24.0-44.0); MEAN CORPUSCULAR HEMOGLOBIN 26.9 pg (27.0-33.0); MEAN CORPUSCULAR HGB CONC 32.8 g/dl (32.0-36.5); MONO # 0.6 10^3/uL (0.0-0.8); MONO % 4.5 % (2.0-8.0); NEUTROPHILS # 12.1 10^3/uL (1.5-8.5); NEUTROPHILS % 88.8 % (36.0-66.0); PLATELET COUNT, AUTOMATED 341 10^3/uL (150-450); WHITE BLOOD COUNT 13.6 10^3/uL (4.0-10.0)
[2023-07-23 11:27] LABS: ACETONE/KETONE 0.69 MMOL/L (0.02-0.27)
[2023-07-23 11:28] LABS: ALBUMIN 4.1 G/DL (3.2-5.2); BILIRUBIN,DIRECT 0.1 MG/DL (<0.4); BILIRUBIN,TOTAL 0.5 MG/DL (0.3-1.2); CALCIUM LEVEL 9.3 MG/DL (8.5-10.1); CREATININE FOR GFR 1.11 MG/DL (0.55-1.30); GLOMERULAR FILTRATION RATE 55.8 (>58); MB/CK RELATIVE INDEX 0.62 (< OR =4); POTASSIUM SERUM 3.6 MMOL/L (3.5-5.1); TOTAL PROTEIN 8.2 G/DL (5.7-8.2)
[2023-07-23] MEDS: NS 1,000 ML IV ONE (12:39)
[2023-07-23] MEDS: METOCLOPRAMIDE INJ 10MG/2ML VIAL IV ONE (12:39)
[2023-07-23] MEDS: PANTOPRAZOLE 40MG VIAL IV ONE (12:41)
[2023-07-23] MEDS: MORPHINE 4 MG/ML 1ML VIAL IV ONE (12:48)
[2023-07-23] MEDS: HumuLIN R (REGULAR) INSULIN (NovoLIN R) **100U/ML** PER UNIT IV ONE (12:52)
[2023-07-23 13:18] LABS: HEMOGLOBIN A1c 8.2 % (4.0-6.0)
[2023-07-23] MEDS ORDERED: ISOVUE-370 76% 100ML VIAL As Ordered ONE (13:45)
[2023-07-23] MEDS: MORPHINE 2 MG/ML 1ML VIAL IV ONE (13:58)
[2023-07-23] MEDS: HALOPERIDOL 5MG/ML 1ML VIAL IV ONE (14:00)
[2023-07-23] MEDS: NS 1,000 ML IV SCH (14:03)
[2023-07-23 16:39] LABS: VENOUS BASE EXCESS -0.2 (-2.0-2.0); VENOUS O2 SATURATION 87.8 % (60.0-80.0); VENOUS PARTIAL PRESSURE CO2 49.5 mmHg (38.0-50.0); VENOUS PARTIAL PRESSURE O2 56.3 mmHg (30.0-50.0); VENOUS PH 7.339 UNITS (7.330-7.430); VENOUS STANDARD HCO3 24.1 MMOL/L; VENOUS TOTAL CO2 27.6 MMOL/L (24.0-28.0)
[2023-07-23 16:47] LABS: BLOOD UREA NITROGEN 34 MG/DL (9-23); CALCIUM LEVEL 8.2 MG/DL (8.5-10.1); CARBON DIOXIDE LEVEL 30 MMOL/L (20-31); CHLORIDE LEVEL 104 MMOL/L (98-107); CREATININE FOR GFR 1.03 MG/DL (0.55-1.30); GLOMERULAR FILTRATION RATE > 60.0 (>58); GLUCOSE, FASTING 297 MG/DL (60-100); POTASSIUM SERUM 3.8 MMOL/L (3.5-5.1); SODIUM LEVEL 141 MMOL/L (136-145)
[2023-07-23 16:54] VITALS: BP 170/100
[2023-07-23] MEDS: CARVedilol 12.5 MG TAB PO ONE (16:54)
[2023-07-23] MEDS ORDERED: ASPI81TA26 PO (17:42)
[2023-07-23] MEDS ORDERED: REGL10TA6 PO (17:42)
[2023-07-23] MEDS ORDERED: LOSA100T46 PO (17:42)
[2023-07-23] MEDS ORDERED: ONDA4TAB6 PO (17:42)
[2023-07-23] MEDS: LEVEMIR (INSULIN DETEMIR) 1 UNITS/0.01ML SC ONE (17:44)
[2023-07-23] MEDS ORDERED: HOME MED LIST COMPLETE! XX SCH (17:45)
[2023-07-23 18:00] VITALS: BP 171/85
[2023-07-23 18:34] VITALS: TEMP 98.2; O2SAT 98
[2023-07-24] MEDS ORDERED: CHOL125C6 PO (21:26)
[2023-07-24] MEDS ORDERED: MULT-40 PO (21:26)
== END 2023-07-23 18:41 | disposition home or self-care (01) ==
LOC: M ED 09:49
DX: E11.65 Type 2 diabetes mellitus with hyperglycemia (principal); K31.84 Gastroparesis; K29.70 Gastritis, unspecified, without bleeding; I25.2 Old myocardial infarction; I10 Essential (primary) hypertension; E78.5 Hyperlipidemia, unspecified; Z95.5 Presence of coronary angioplasty implant and graft; Z79.01 Long term (current) use of anticoagulants; K76.0 Fatty (change of) liver, not elsewhere classified; Z79.4 Long term (current) use of insulin; Z79.899 Other long term (current) drug therapy; Z88.5 Allergy status to narcotic agent; Z91.040 Latex allergy status
CPT/HCPCS: 71046; 74177; 80048; 80076; 81001; 82010; 82550; 82553; 82803; 83036; 83690; 83930; 84484; 85025; 93005; 93041; 94760; 96361; 96374; 96375; 96376; 99285; C9113; J1630; J1815; J2765; Q9967

== ENCOUNTER 2023-07-24 11:49 | Observation (INO) | payer BC ==
[~2023-07-24] VITALS: Ht 162.6 cm; Wt 66.5 kg
[~2023-07-24 11:49] MED LIST changes: +ASPI81TA26 PO; +LOSA100T46 PO
[2023-07-24 15:58] LABS: BASO % 0.2 % (0.0-1.0); EOS % 0.1 % (0.0-3.0); HEMATOCRIT 34.6 % (36.0-47.0); HEMOGLOBIN 11.3 g/dl (12.0-15.5); LYMPH # 1.2 10^3/uL (1.5-5.0); LYMPH % 9.7 % (24.0-44.0); MEAN CORPUSCULAR HEMOGLOBIN 27.2 pg (27.0-33.0); MEAN CORPUSCULAR HGB CONC 32.7 g/dl (32.0-36.5); MEAN CORPUSCULAR VOLUME 83.2 fl (80.0-96.0); MONO # 0.8 10^3/uL (0.0-0.8); NEUTROPHILS # 10.4 10^3/uL (1.5-8.5); NEUTROPHILS % 83.6 % (36.0-66.0); PLATELET COUNT, AUTOMATED 297 10^3/uL (150-450); RED BLOOD COUNT 4.16 10^6/uL (4.00-5.40); WHITE BLOOD COUNT 12.4 10^3/uL (4.0-10.0)
[2023-07-24 16:28] LABS: LIPASE 45 U/L (12-53)
[2023-07-24 17:00] LABS: ALBUMIN 3.7 G/DL (3.2-5.2); ALKALINE PHOSPHATASE 79 U/L (46-116); ALT/SGPT 24 U/L (7.0-40); AST/SGOT 24 U/L (<34); BILIRUBIN,DIRECT 0.1 MG/DL (<0.4); BILIRUBIN,TOTAL 0.5 MG/DL (0.3-1.2); BLOOD UREA NITROGEN 32 MG/DL (9-23); CALCIUM LEVEL 8.6 MG/DL (8.5-10.1); CARBON DIOXIDE LEVEL 30 MMOL/L (20-31); CHLORIDE LEVEL 100 MMOL/L (98-107); CK-MB VALUE MASS 1.1 NG/ML (<3.6); CPK CREATINE PHOSPHOKINASE 269 U/L (34-145); CREATININE FOR GFR 0.95 MG/DL (0.55-1.30); GLOMERULAR FILTRATION RATE > 60.0 (>58); GLUCOSE, FASTING 222 MG/DL (60-100); SODIUM LEVEL 136 MMOL/L (136-145); TOTAL PROTEIN 7.2 G/DL (5.7-8.2)
[2023-07-24] MEDS: NS 1,000 ML IV ONE (17:46)
[2023-07-24] MEDS: METOCLOPRAMIDE INJ 10MG/2ML VIAL IV ONE (17:46)
[2023-07-24] MEDS: MORPHINE 4 MG/ML 1ML VIAL IV ONE (17:46)
[2023-07-24] MEDS ORDERED: MOM 30ML SUSPENSION UDC PO PRN (20:40)
[2023-07-24] MEDS ORDERED: ACETAMINOPHEN TAB 650MG DOSE (2X325MG) PO PRN (20:40)
[2023-07-24] MEDS ORDERED: MORPHINE 2 MG/ML 1ML VIAL IV PRN (20:45)
[2023-07-24] MEDS ORDERED: ONDANSETRON 4MG TAB PO PRN (20:55)
[2023-07-24] MEDS: NS 1,000 ML IV SCH (21:23)
[2023-07-24] MEDS ORDERED: CHOL125C6 PO (21:26)
[2023-07-24] MEDS ORDERED: MULT-40 PO (21:26)
[2023-07-24 22:10] VITALS: BP 166/95; TEMP 98.4; O2SAT 98
[2023-07-24] MEDS ORDERED: NITROGLYCERIN 0.4MG SUBL TABLET SL PRN (22:40)
[2023-07-24] MEDS: ONDANSETRON 4MG 2ML VIAL IV PRN (23:29)
[2023-07-24] MEDS: MORPHINE 2 MG/ML 1ML VIAL IV PRN (23:30)
[2023-07-24] MEDS: DOCUSATE SODIUM 100MG CAPSULE PO SCH (23:31)
[2023-07-24] MEDS: CARVedilol 12.5 MG TAB PO SCH (23:31)
[2023-07-24] MEDS: PIPERACILLIN/TAZOBACTAM SOD 4.5 GM in D5W MINI-BAG PLUS 50 ML IV SCH (23:31)
[2023-07-25] MEDS: INSULIN LISPRO (NovoLOG) PER UNIT SC SCH ×2 (00:59→12:00)
[2023-07-25 01:00] VITALS: BP 157/90
[2023-07-25] MEDS: METOCLOPRAMIDE INJ 10MG/2ML VIAL IV SCH (05:44)
[2023-07-25 05:50] VITALS: BP 156/93; TEMP 98.1; O2SAT 98
[2023-07-25 08:50] LABS: BASO % 0.3 % (0.0-1.0); EOS # 0.1 10^3/uL (0.0-0.5); EOS % 0.5 % (0.0-3.0); HEMATOCRIT 33.5 % (36.0-47.0); HEMOGLOBIN 10.7 g/dl (12.0-15.5); LYMPH # 1.1 10^3/uL (1.5-5.0); LYMPH % 11.4 % (24.0-44.0); MEAN CORPUSCULAR HEMOGLOBIN 26.7 pg (27.0-33.0); MEAN CORPUSCULAR HGB CONC 31.9 g/dl (32.0-36.5); MEAN CORPUSCULAR VOLUME 83.5 fl (80.0-96.0); MONO # 0.9 10^3/uL (0.0-0.8); MONO % 9.5 % (2.0-8.0); NEUTROPHILS # 7.4 10^3/uL (1.5-8.5); PLATELET COUNT, AUTOMATED 270 10^3/uL (150-450); RED BLOOD COUNT 4.01 10^6/uL (4.00-5.40); WHITE BLOOD COUNT 9.5 10^3/uL (4.0-10.0)
[2023-07-25] MEDS ORDERED: ENOXAPARIN 40MG/0.4ML SYRINGE (J1650 PER 10MG) SC SCH (09:00)
[2023-07-25] MEDS: ASPIRIN 81MG ENTERIC TABLET PO SCH (09:06)
[2023-07-25] MEDS: APIXABAN 5 MG TAB (ELIQUIS) PO SCH (09:06)
[2023-07-25] MEDS: PANTOPRAZOLE 40MG VIAL IV SCH (09:06)
[2023-07-25 09:09] VITALS: BP 158/94
[2023-07-25] MEDS: LOSARTAN 50MG TABLET PO SCH (09:10)
[2023-07-25 09:21] LABS: ALBUMIN 3.2 G/DL (3.2-5.2); ALKALINE PHOSPHATASE 69 U/L (46-116); ALT/SGPT 21 U/L (7.0-40); AST/SGOT 19 U/L (<34); BILIRUBIN,TOTAL 0.7 MG/DL (0.3-1.2); BLOOD UREA NITROGEN 26 MG/DL (9-23); CALCIUM LEVEL 8.4 MG/DL (8.5-10.1); CARBON DIOXIDE LEVEL 30 MMOL/L (20-31); CHLORIDE LEVEL 102 MMOL/L (98-107); CREATININE FOR GFR 0.98 MG/DL (0.55-1.30); GLOMERULAR FILTRATION RATE > 60.0 (>58); GLUCOSE, FASTING 214 MG/DL (60-100); MAGNESIUM LEVEL 1.8 MG/DL (1.8-2.4); POTASSIUM SERUM 3.8 MMOL/L (3.5-5.1); SODIUM LEVEL 136 MMOL/L (136-145); TOTAL PROTEIN 6.3 G/DL (5.7-8.2)
[2023-07-25] MEDS ORDERED: GLUCAGON INJ 1MG VIAL SC PRN (09:30)
[2023-07-25] MEDS ORDERED: DEXTROSE 50% 50ML SYRINGE IV PRN (09:30)
[2023-07-25] MEDS ORDERED: GLUCOSE 4GM CHEW TABLET PO PRN (09:30)
[2023-07-25] MEDS: VITAMIN D 1,000 INTERNATIONAL UNITS TABLET PO SCH (11:37)
[2023-07-25] MEDS: SUCRALFATE 1 GM TAB PO SCH (11:37)
[2023-07-25] MEDS: MULTIVITAMINS/MINERALS THERAP 1 TAB PO SCH (11:37)
[2023-07-25] MEDS: LACTOBACILLUS ACIDOPHILUS CAP (BACID) PO SCH (11:37)
[2023-07-25] MEDS ORDERED: PANT40TA29 PO (13:47)
[2023-07-25] MEDS ORDERED: METR-265 PO (13:47)
[2023-07-25] MEDS ORDERED: CEFD1CAP9 PO (13:47)
[2023-07-25] MEDS ORDERED: SUCR1TAB56 PO (13:47)
[2023-07-25] MEDS ORDERED: RISATAB3 PO (13:47)
[2023-07-25 13:58] VITALS: BP 140/82
[2023-07-25 14:00] VITALS: BP 157/93; TEMP 99.5; O2SAT 96
[2023-07-25] MEDS ORDERED: LEVEMIR (INSULIN DETEMIR) 1 UNITS/0.01ML SC SCH (21:00)
[2023-07-25] MEDS ORDERED: ROSUVASTATIN 10 MG TAB (CRESTOR) PO SCH (21:00)
[2023-07-25] MEDS ORDERED: INSULIN LISPRO (NovoLOG) PER UNIT SC SCH (21:00)
== END 2023-07-25 14:52 | disposition home or self-care (01) ==
LOC: M ED 11:49 → M ED INP 20:09 → ENRESERV 20:54 → M MSPAV 21:47
PROVIDERS: ADMIT Family Medicine; ATTEND Internal Medicine
DX: K52.89 Other specified noninfective gastroenteritis and colitis (principal); R11.10 Vomiting, unspecified; R10.9 Unspecified abdominal pain; K59.00 Constipation, unspecified; E86.0 Dehydration; E11.43 Type 2 diabetes mellitus with diabetic autonomic (poly)neuropathy; R74.8 Abnormal levels of other serum enzymes; I10 Essential (primary) hypertension; Z79.01 Long term (current) use of anticoagulants; Z79.82 Long term (current) use of aspirin; Z79.4 Long term (current) use of insulin; Z79.899 Other long term (current) drug therapy; Z91.040 Latex allergy status; Z88.5 Allergy status to narcotic agent; J30.2 Other seasonal allergic rhinitis
CPT/HCPCS: 36415; 80048; 80053; 80076; 82550; 82553; 83605; 83690; 83735; 84145; 84484; 85025; 87040; 93005; 96365; 96366; 96375; 96376; 99284; C9113; J1815; J2405; J2543; J2765

== ENCOUNTER → 2024-02-27 | Outpatient (REF) | payer BC ==
[~2024-02-27] MED LIST changes: +CEFD1CAP9 PO; +CHOL125C6 PO; +METR-265 PO; +MULT-40 PO; +ONDA-282 PO; -ONDA4TAB6 PO; +RISATAB3 PO; -ROSU20TA61 PO; +ROSU20TA86 PO; +ROSU5TAB49 PO; -ROSU5TAB5 PO; +SUCR1TAB56 PO
[2024-02-27 12:59] LABS: CREATININE, URINE 182.8 MG/DL; MAU/CREAT RATIO 10.9 MCG/MG (0.0-30.0)
[2024-02-27 18:59] LABS: BASO % 0.6 % (0.0-1.0); EOS # 0.3 10^3/uL (0.0-0.5); EOS % 5.5 % (0.0-3.0); HEMATOCRIT 42.2 % (36.0-47.0); HEMOGLOBIN 13.5 g/dl (12.0-15.5); LYMPH % 32.4 % (24.0-44.0); MEAN CORPUSCULAR HEMOGLOBIN 28.4 pg (27.0-33.0); MEAN CORPUSCULAR VOLUME 88.8 fl (80.0-96.0); MONO # 0.4 10^3/uL (0.0-0.8); NEUTROPHILS # 3.3 10^3/uL (1.5-8.5); NEUTROPHILS % 54.2 % (36.0-66.0); PLATELET COUNT, AUTOMATED 307 10^3/uL (150-450); RED BLOOD COUNT 4.75 10^6/uL (4.00-5.40); WHITE BLOOD COUNT 6.2 10^3/uL (4.0-10.0)
[2024-02-27 19:00] LABS: CALCIUM LEVEL 9.5 MG/DL (8.5-10.1); CHOLESTEROL RISK RATIO 3.19 (<5); CREATININE FOR GFR 1.26 MG/DL (0.55-1.30); GLOMERULAR FILTRATION RATE 48.2 (>58); HDL CHOLESTEROL 56.3 MG/DL (>40); LDL CHOLESTEROL 108.3 MG/DL (<100); NON-HDL-C 123.7 MG/DL; POTASSIUM SERUM 4.4 MMOL/L (3.5-5.1)
[2024-02-27 19:03] LABS: THYROID STIMULATING HORMONE 1.301 uIU/ML (0.55-4.78)
[2024-02-27 19:43] LABS: HEMOGLOBIN A1c 7.6 % (4.0-6.0)
== END ==
LOC: M LAB REF 12:13
PROVIDERS: ATTEND Pediatrics
DX: E11.21 Type 2 diabetes mellitus with diabetic nephropathy (principal); E78.5 Hyperlipidemia, unspecified; I10 Essential (primary) hypertension; D50.9 Iron deficiency anemia, unspecified

== ENCOUNTER 2024-06-01 13:17 | Inpatient (IN) | payer BC, OTHER ==
[~2024-06-01] VITALS: Ht 157.5 cm; Wt 65.6 kg
[~2024-06-01 13:17] MED LIST changes: -BAYE325T12 PO; +BAYE325T2 PO
[2024-06-01] MEDS: HALOPERIDOL LACTATE 5MG/ML VIAL IV ONE (14:20)
[2024-06-01 14:43] LABS: BASO % 0.1 % (0.0-1.0); HEMATOCRIT 46.6 % (36.0-47.0); HEMOGLOBIN 15.5 g/dl (12.0-15.5); LYMPH # 0.9 10^3/uL (1.5-5.0); LYMPH % 10.6 % (24.0-44.0); MEAN CORPUSCULAR HEMOGLOBIN 28.7 pg (27.0-33.0); MEAN CORPUSCULAR HGB CONC 33.3 g/dl (32.0-36.5); MEAN CORPUSCULAR VOLUME 86.3 fl (80.0-96.0); MONO # 0.3 10^3/uL (0.0-0.8); MONO % 4.1 % (2.0-8.0); NEUTROPHILS # 7.1 10^3/uL (1.5-8.5); NEUTROPHILS % 84.7 % (36.0-66.0); PLATELET COUNT, AUTOMATED 260 10^3/uL (150-450); WHITE BLOOD COUNT 8.3 10^3/uL (4.0-10.0)
[2024-06-01] MEDS: NS (Normal Saline) 0.9% 1,000 ML IV ONE ×2 (14:45→16:06)
[2024-06-01] MEDS: MORPHINE 4 MG/ML 1ML VIAL IV PRN (14:46)
[2024-06-01 15:11] LABS: ALBUMIN 4.3 G/DL (3.2-5.2); BILIRUBIN,DIRECT 0.1 MG/DL (<0.4); BILIRUBIN,TOTAL 0.6 MG/DL (0.3-1.2); CALCIUM LEVEL 9.8 MG/DL (8.5-10.1); CREATININE FOR GFR 1.13 MG/DL (0.55-1.30); GLOMERULAR FILTRATION RATE 54.5 (>58); POTASSIUM SERUM 5.2 MMOL/L (3.5-5.1); TOTAL PROTEIN 8.4 G/DL (5.7-8.2)
[2024-06-01] MEDS ORDERED: ISOVUE-370 76% 100ML VIAL As Ordered ONE (15:34)
[2024-06-01 18:03] LABS: CALCIUM LEVEL 8.4 MG/DL (8.5-10.1); CREATININE FOR GFR 1.19 MG/DL (0.55-1.30); GLOMERULAR FILTRATION RATE 51.3 (>58); POTASSIUM SERUM 4.2 MMOL/L (3.5-5.1)
[2024-06-01] MEDS: HumuLIN R (REGULAR) INSULIN (NovoLIN R) **100U/ML** PER UNIT IV ONE (19:24)
[2024-06-01] MEDS: ONDANSETRON 4MG 2ML VIAL IV ONE (20:31)
[2024-06-01 20:39] LABS: VENOUS HCO3 24.7 MMOL/L (23.0-27.0); VENOUS PARTIAL PRESSURE CO2 44.9 mmHg (38.0-50.0); VENOUS PARTIAL PRESSURE O2 91.4 mmHg (30.0-50.0); VENOUS PH 7.359 UNITS (7.330-7.430); VENOUS STANDARD HCO3 23.7 MMOL/L; VENOUS TOTAL CO2 26.1 MMOL/L (24.0-28.0)
[2024-06-01] MEDS ORDERED: GLUCAGON INJ 1MG VIAL SC PRN (20:45)
[2024-06-01] MEDS ORDERED: MOM 30ML SUSPENSION UDC PO PRN (20:45)
[2024-06-01] MEDS ORDERED: GLUCOSE 4 GM CHEW PO PRN (20:45)
[2024-06-01] MEDS ORDERED: MAALOX 30 ML SUSP *UDC PO PRN (20:45)
[2024-06-01] MEDS ORDERED: DEXTROSE 50% 50ML SYRINGE IV PRN (20:45)
[2024-06-01 21:05] LABS: PHOSPHORUS LEVEL 2.7 MG/DL (2.5-4.9)
[2024-06-01] MEDS: LR 1,000 ML IV ONE (21:29)
[2024-06-01] MEDS: DOCUSATE SODIUM 100MG CAPSULE PO SCH (21:31)
[2024-06-01 21:50] LABS: ACETONE/KETONE 0.3 MMOL/L (0.02-0.27)
[2024-06-02] MEDS ORDERED: EZET10TA21 PO (01:02)
[2024-06-02] MEDS: INSULIN LISPRO (NovoLOG) PER UNIT SC SCH ×3 (01:07→21:00)
[2024-06-02] MEDS ORDERED: FERR325T19 PO (01:09)
[2024-06-02] MEDS ORDERED: ACET500T15 PO (01:21)
[2024-06-02] MEDS ORDERED: HOME MED LIST COMPLETE! XX SCH (01:25)
[2024-06-02] MEDS: ONDANSETRON 4MG 2ML VIAL IV ONE (04:35)
[2024-06-02] MEDS: METOCLOPRAMIDE INJ 10MG/2ML VIAL IV SCH ×2 (06:25→18:28)
[2024-06-02 06:44] LABS: HEMATOCRIT 40.1 % (36.0-47.0); MEAN CORPUSCULAR HEMOGLOBIN 28.1 pg (27.0-33.0); MEAN CORPUSCULAR HGB CONC 32.7 g/dl (32.0-36.5); MEAN CORPUSCULAR VOLUME 86.1 fl (80.0-96.0); PLATELET COUNT, AUTOMATED 225 10^3/uL (150-450); RED BLOOD COUNT 4.66 10^6/uL (4.00-5.40); WHITE BLOOD COUNT 10.6 10^3/uL (4.0-10.0)
[2024-06-02 06:45] LABS: HEMOGLOBIN 13.1 g/dl (12.0-15.5)
[2024-06-02 07:11] LABS: ALBUMIN 3.5 G/DL (3.2-5.2); ALKALINE PHOSPHATASE 70 U/L (35-104); ALT/SGPT 33 U/L (7.0-40); AST/SGOT 21 U/L (<34); BILIRUBIN,TOTAL 0.4 MG/DL (0.3-1.2); BLOOD UREA NITROGEN 29 MG/DL (9-23); CALCIUM LEVEL 8.7 MG/DL (8.5-10.1); CARBON DIOXIDE LEVEL 28 MMOL/L (20-31); CHLORIDE LEVEL 106 MMOL/L (98-107); CREATININE FOR GFR 0.93 MG/DL (0.55-1.30); GLOMERULAR FILTRATION RATE > 60.0 (>58); GLUCOSE, FASTING 137 MG/DL (60-100); MAGNESIUM LEVEL 1.8 MG/DL (1.8-2.4); PHOSPHORUS LEVEL 2.2 MG/DL (2.5-4.9); POTASSIUM SERUM 4.1 MMOL/L (3.5-5.1); SODIUM LEVEL 143 MMOL/L (136-145); TOTAL PROTEIN 6.8 G/DL (5.7-8.2)
[2024-06-02] MEDS ORDERED: DAPAGLIFLOZIN PROPANEDIOL 10MG TABLET (FARXIGA) PO SCH (09:00)
[2024-06-02] MEDS: guaiFENesin ER TABLET 600 MG TAB PO SCH (09:00)
[2024-06-02] MEDS: LOSARTAN 50MG TABLET PO SCH (10:14)
[2024-06-02] MEDS: APIXABAN 5 MG TAB (ELIQUIS) PO SCH (10:15)
[2024-06-02] MEDS: PANTOPRAZOLE 40MG VIAL IV SCH (10:15)
[2024-06-02] MEDS: CARVedilol 12.5 MG TAB PO SCH (10:15)
[2024-06-02] MEDS: ASPIRIN 81MG ENTERIC TABLET PO SCH (10:15)
[2024-06-02 11:11] LABS: KETONE, URINE AUTO RFX 1+ mg/dL (NEGATIVE); LEUKOCYTE ESTERASE UR AUTO RFX NEGATIVE (NEGATIVE); MUCUS, URINE RFX SMALL (NEGATIVE); NITRITE, URINE AUTO RFX NEGATIVE (NEGATIVE); RBC, URINE AUTO RFX 1 /HPF (0-3); SQUAM EPITHELIAL CELL UR AURFX 5 /HPF (0-6); WBC, URINE AUTO RFX 1 /HPF (0-3)
[2024-06-02] MEDS: MAG SULF 1GM/100ML (MAG RUN) 1 GM in IV 1 EA IV SCH (11:12)
[2024-06-02] MEDS ORDERED: diphenhydrAMINE 50MG/ML VIAL IV PRN (11:25)
[2024-06-02 11:55] LABS: HEMOGLOBIN A1c 7.4 % (4.0-6.0)
[2024-06-02] MEDS ORDERED: METOCLOPRAMIDE INJ 10MG/2ML VIAL IV SCH (12:00)
[2024-06-02] MEDS: ONDANSETRON 4MG ORAL DISINTEGRATING TAB SL PRN (12:38)
[2024-06-02] MEDS: CIPROFLOXACIN 400 MG in IV 1 EA IV SCH (13:59)
[2024-06-02] MEDS ORDERED: LORazepam 2 MG/ML 1ML VIAL IV PRN (14:55)
[2024-06-02] MEDS ORDERED: flumazeniL 0.5MG/5ML VIAL IV PRN (14:55)
[2024-06-02] MEDS: SCOPOLAMINE 1MG TRANSDERMAL PATCH TOP SCH (15:19)
[2024-06-02] MEDS: PROMETHAZINE 25MG/ML 1ML VIAL IV ONE (15:20)
[2024-06-02] MEDS: metroNIDAZOLE 500 MG in IV 1 EA IV SCH (15:20)
[2024-06-02 16:41] LABS: BLOOD UREA NITROGEN 28 MG/DL (9-23); CARBON DIOXIDE LEVEL 28 MMOL/L (20-31); CHLORIDE LEVEL 104 MMOL/L (98-107); CREATININE FOR GFR 0.96 MG/DL (0.55-1.30); GLOMERULAR FILTRATION RATE > 60.0 (>58); GLUCOSE, FASTING 206 MG/DL (60-100); POTASSIUM SERUM 3.9 MMOL/L (3.5-5.1); SODIUM LEVEL 141 MMOL/L (136-145)
[2024-06-02 16:44] LABS: ACETONE/KETONE 0.22 MMOL/L (0.02-0.27)
[2024-06-02] MEDS: LR 1,000 ML IV SCH (16:58)
[2024-06-02] MEDS: NITROGLYCERIN 2% OINT 1 GM *U/D* PKT TOP ONE (17:01)
[2024-06-02] MEDS: hydrALAZINE 20MG/ML 1ML VIAL IV SCH (18:00)
[2024-06-02] MEDS ORDERED: LEVEMIR (INSULIN DETEMIR) 1 UNITS/0.01ML SC SCH (21:00)
[2024-06-02] MEDS: LABETALOL 100MG/20ML VIAL IV SCH (21:00)
[2024-06-02] MEDS: CYCLOBENZAPRINE 10MG TABLET PO SCH (22:21)
[2024-06-02] MEDS: PROMETHAZINE 25MG/ML 1ML VIAL IV SCH (22:22)
[2024-06-03] VITALS (11 sets, daily range): BP systolic 131–164; BP diastolic 52–96; TEMP 98–99.5; O2SAT 95–99
[2024-06-03 07:07] LABS: CHOLESTEROL RISK RATIO 3.33 (<5); HDL CHOLESTEROL 40.8 MG/DL (>40); LDL CHOLESTEROL 66.4 MG/DL (<100); NON-HDL-C 95.2 MG/DL
[2024-06-03] MEDS: ACETAMINOPHEN 325 MG TAB PO PRN (09:07)
[2024-06-04] VITALS (7 sets, daily range): BP systolic 136–164; BP diastolic 72–100; TEMP 97.1–98.7; O2SAT 95–98
[2024-06-04] MEDS: hydrALAZINE 20MG/ML 1ML VIAL IV SCH
[2024-06-04] MEDS ORDERED: PROMETHAZINE 25MG/ML 1ML VIAL IV PRN (08:20)
[2024-06-04] MEDS: CARVedilol 12.5 MG TAB PO SCH (08:54)
[2024-06-05 00:14] VITALS: BP 152/91; TEMP 97.8; O2SAT 94
[2024-06-05 03:59] VITALS: BP 135/78; TEMP 98.3; O2SAT 97
[2024-06-05 06:56] LABS: BASO % 0.3 % (0.0-1.0); EOS # 0.4 10^3/uL (0.0-0.5); EOS % 7.2 % (0.0-3.0); HEMATOCRIT 40.1 % (36.0-47.0); HEMOGLOBIN 13.4 g/dl (12.0-15.5); LYMPH # 1.8 10^3/uL (1.5-5.0); LYMPH % 30.1 % (24.0-44.0); MEAN CORPUSCULAR HEMOGLOBIN 28.2 pg (27.0-33.0); MEAN CORPUSCULAR HGB CONC 33.4 g/dl (32.0-36.5); MEAN CORPUSCULAR VOLUME 84.2 fl (80.0-96.0); MONO # 0.6 10^3/uL (0.0-0.8); MONO % 10.2 % (2.0-8.0); NEUTROPHILS % 51.7 % (36.0-66.0); PLATELET COUNT, AUTOMATED 193 10^3/uL (150-450); RED BLOOD COUNT 4.76 10^6/uL (4.00-5.40); WHITE BLOOD COUNT 5.8 10^3/uL (4.0-10.0)
[2024-06-05 07:27] LABS: CALCIUM LEVEL 8.6 MG/DL (8.5-10.1); CREATININE FOR GFR 1.1 MG/DL (0.55-1.30); GLOMERULAR FILTRATION RATE 56.2 (>58); POTASSIUM SERUM 4.2 MMOL/L (3.5-5.1)
[2024-06-05 08:00] VITALS: BP 158/84; TEMP 98.2; O2SAT 94
[2024-06-05] MEDS ORDERED: CIPR-249 PO (09:30)
[2024-06-05] MEDS ORDERED: REGL10TA6 PO (09:30)
[2024-06-05] MEDS ORDERED: METR-265 PO (09:30)
[2024-06-05 16:17] LABS: Chitobioside Carbohydrat (ACCA 16 units (0-90); Laminaribioside Carbohyd (ALCA 3 units (0-60); Mannobioside Carbohydrat (AMCA 21 units (0-100); Saccharomyces cerevisiae IgG A 6 units (0-50)
[2024-06-07 16:08] LABS: GAD-65 AUTOANTIBODY < 5 IU/mL (<5)
[2024-06-08 03:33] LABS: INSULIN ANTIBODY < 0.4 U/mL (<0.4)
[2024-06-09 23:02] LABS: ISLET CELL ANTIBODIES NEGATIVE (NEGATIVE)
== END 2024-06-05 10:48 | disposition home or self-care (01) | DRG 48 ==
LOC: M ED 13:17 → M ED INP 20:43 → M PCU 06-03 05:17
PROVIDERS: ADMIT Student in an Organized Health Care Education/Training Program; ATTEND Student in an Organized Health Care Education/Training Program
DX: E11.43 Type 2 diabetes mellitus with diabetic autonomic (poly)neuropathy (principal); E87.5 Hyperkalemia; I10 Essential (primary) hypertension; Z79.899 Other long term (current) drug therapy; Z79.82 Long term (current) use of aspirin; Z79.4 Long term (current) use of insulin; Z91.040 Latex allergy status; Z88.5 Allergy status to narcotic agent; Z88.8 Allergy status to other drugs, medicaments and biological substances; F41.9 Anxiety disorder, unspecified; Z79.01 Long term (current) use of anticoagulants; Z95.2 Presence of prosthetic heart valve; I16.0 Hypertensive urgency; I25.10 Atherosclerotic heart disease of native coronary artery without angina pectoris; I25.2 Old myocardial infarction; K21.9 Gastro-esophageal reflux disease without esophagitis; E11.10 Type 2 diabetes mellitus with ketoacidosis without coma; K52.9 Noninfective gastroenteritis and colitis, unspecified

== ENCOUNTER 2024-08-10 02:57 | Emergency (ER) | payer OTHER ==
[~2024-08-10] VITALS: Ht 160 cm; Wt 67.3 kg
[~2024-08-10 02:57] MED LIST changes: +ACET500T15 PO; +CIPR-249 PO; +EZET10TA21 PO; +FERR325T19 PO
[2024-08-10 03:43] LABS: BASO % 0.1 % (0.0-1.0); HEMATOCRIT 43.5 % (36.0-47.0); HEMOGLOBIN 14.5 g/dl (12.0-15.5); LYMPH # 1.2 10^3/uL (1.5-5.0); LYMPH % 9.2 % (24.0-44.0); MEAN CORPUSCULAR HEMOGLOBIN 28.5 pg (27.0-33.0); MEAN CORPUSCULAR HGB CONC 33.3 g/dl (32.0-36.5); MEAN CORPUSCULAR VOLUME 85.5 fl (80.0-96.0); MONO # 0.4 10^3/uL (0.0-0.8); MONO % 3.1 % (2.0-8.0); NEUTROPHILS # 11.8 10^3/uL (1.5-8.5); NEUTROPHILS % 87.1 % (36.0-66.0); PLATELET COUNT, AUTOMATED 291 10^3/uL (150-450); RED BLOOD COUNT 5.09 10^6/uL (4.00-5.40); WHITE BLOOD COUNT 13.5 10^3/uL (4.0-10.0)
[2024-08-10] MEDS: METOCLOPRAMIDE INJ 10MG/2ML VIAL IV ONE (03:50)
[2024-08-10] MEDS: KETOROLAC 30 MG/ML 1ML VIAL IV ONE (03:50)
[2024-08-10 04:06] LABS: LIPASE 69 U/L (12-53)
[2024-08-10 04:11] LABS: ALBUMIN 4.5 G/DL (3.2-5.2); ALKALINE PHOSPHATASE 86 U/L (35-104); ALT/SGPT 52 U/L (7.0-40); AST/SGOT 34 U/L (<34); BILIRUBIN,DIRECT < 0.1 MG/DL (<0.4); BILIRUBIN,TOTAL 0.4 MG/DL (0.3-1.2); BLOOD UREA NITROGEN 27 MG/DL (9-23); CARBON DIOXIDE LEVEL 22 MMOL/L (20-31); CHLORIDE LEVEL 108 MMOL/L (98-107); GLOMERULAR FILTRATION RATE 69.1 (>58); GLUCOSE, FASTING 208 MG/DL (60-100); POTASSIUM SERUM 4.6 MMOL/L (3.5-5.1); SODIUM LEVEL 145 MMOL/L (136-145); TOTAL PROTEIN 8.5 G/DL (5.7-8.2)
[2024-08-10 04:15] LABS: HCG, SERUM QUALITATIVE NEGATIVE (NEGATIVE)
[2024-08-10 04:42] LABS: VENOUS BASE EXCESS -2.8 (-2.0-2.0); VENOUS HCO3 22.7 MMOL/L (23.0-27.0); VENOUS O2 SATURATION 97.9 % (60.0-80.0); VENOUS PARTIAL PRESSURE O2 109.7 mmHg (30.0-50.0); VENOUS STANDARD HCO3 22.1 MMOL/L
[2024-08-10] MEDS: NS (Normal Saline) 0.9% 1,000 ML IV ONE (04:42)
[2024-08-10] MEDS: MORPHINE 4 MG/ML 1ML VIAL IV PRN (04:42)
[2024-08-10] MEDS: HALOPERIDOL LACTATE 5MG/ML VIAL IV ONE (04:42)
[2024-08-10 05:13] LABS: ACETONE/KETONE 0.97 MMOL/L (0.02-0.27)
[2024-08-10] MEDS ORDERED: ACET650T15 PO (07:45)
[2024-08-10] MEDS ORDERED: METO10TA2 PO (07:46)
[2024-08-10] MEDS ORDERED: HOME MED LIST COMPLETE! XX SCH (07:50)
[2024-08-10] MEDS ORDERED: DEXTROSE 50% 50ML SYRINGE IV PRN (08:45)
[2024-08-10] MEDS ORDERED: GLUCAGON INJ 1MG VIAL SC PRN (08:45)
[2024-08-10] MEDS ORDERED: GLUCOSE 4 GM CHEW PO PRN (08:45)
[2024-08-10] MEDS: ONDANSETRON 4MG 2ML VIAL IV ONE (09:06)
[2024-08-10] MEDS ORDERED: ONDA-282 PO (09:49)
[2024-08-10] MEDS ORDERED: TRAM50TA2 PO (09:54)
[2024-08-10 10:14] VITALS: BP 162/90; TEMP 97; O2SAT 100
[2024-08-10] MEDS ORDERED: INSULIN LISPRO (NovoLOG) PER UNIT SC SCH ×2 (12:00→21:00)
== END 2024-08-10 10:17 | disposition home or self-care (01) ==
LOC: M ED 02:57
DX: F12.188 Cannabis abuse with other cannabis-induced disorder (principal); R11.10 Vomiting, unspecified; E11.9 Type 2 diabetes mellitus without complications; I10 Essential (primary) hypertension; E78.5 Hyperlipidemia, unspecified; K21.9 Gastro-esophageal reflux disease without esophagitis; F41.9 Anxiety disorder, unspecified; I25.2 Old myocardial infarction; Z86.79 Personal history of other diseases of the circulatory system; Z79.01 Long term (current) use of anticoagulants; Z88.5 Allergy status to narcotic agent; Z91.040 Latex allergy status; Z91.09 Other allergy status, other than to drugs and biological substances; Z79.82 Long term (current) use of aspirin; Z79.4 Long term (current) use of insulin; Z79.83 Long term (current) use of bisphosphonates; Z79.899 Other long term (current) drug therapy
CPT/HCPCS: 80048; 80076; 82010; 82803; 83690; 83930; 84703; 85025; 96361; 96374; 96375; 96376; 99284; J1630; J1885; J2405; J2765

== ENCOUNTER 2024-08-13 22:39 | Inpatient (IN) | payer OTHER ==
[~2024-08-13] VITALS: Ht 160 cm; Wt 68.0 kg
[~2024-08-13 22:39] MED LIST changes: +ACET650T15 PO; +METO10TA2 PO; +TRAM50TA2 PO
[2024-08-14 02:11] LABS: VENOUS BASE EXCESS 3.4 (-2.0-2.0); VENOUS HCO3 29.3 MMOL/L (23.0-27.0); VENOUS O2 SATURATION 87.1 % (60.0-80.0); VENOUS PARTIAL PRESSURE O2 50.5 mmHg (30.0-50.0); VENOUS PH 7.395 UNITS (7.330-7.430); VENOUS STANDARD HCO3 27.2 MMOL/L; VENOUS TOTAL CO2 30.8 MMOL/L (24.0-28.0)
[2024-08-14 02:16] LABS: BASO % 0.2 % (0.0-1.0); EOS % 0.1 % (0.0-3.0); HEMATOCRIT 42.8 % (36.0-47.0); HEMOGLOBIN 14.6 g/dl (12.0-15.5); LYMPH # 1.3 10^3/uL (1.5-5.0); LYMPH % 13.8 % (24.0-44.0); MEAN CORPUSCULAR HEMOGLOBIN 28.3 pg (27.0-33.0); MEAN CORPUSCULAR HGB CONC 34.1 g/dl (32.0-36.5); MEAN CORPUSCULAR VOLUME 83.1 fl (80.0-96.0); MONO # 0.5 10^3/uL (0.0-0.8); MONO % 4.9 % (2.0-8.0); NEUTROPHILS # 7.4 10^3/uL (1.5-8.5); NEUTROPHILS % 80.7 % (36.0-66.0); PLATELET COUNT, AUTOMATED 287 10^3/uL (150-450); RED BLOOD COUNT 5.15 10^6/uL (4.00-5.40); WHITE BLOOD COUNT 9.2 10^3/uL (4.0-10.0)
[2024-08-14] MEDS: METOCLOPRAMIDE INJ 10MG/2ML VIAL IV ONE ×2 (02:32→10:23)
[2024-08-14 02:40] LABS: ACETONE/KETONE 3.42 MMOL/L (0.02-0.27); BLOOD UREA NITROGEN 39 MG/DL (9-23); CALCIUM LEVEL 9.4 MG/DL (8.5-10.1); CARBON DIOXIDE LEVEL 28 MMOL/L (20-31); CHLORIDE LEVEL 93 MMOL/L (98-107); CK-MB VALUE MASS < 1.0 NG/ML (<3.6); CPK CREATINE PHOSPHOKINASE 116 U/L (34-145); CREATININE FOR GFR 1.13 MG/DL (0.55-1.30); GLOMERULAR FILTRATION RATE 59.6 (>58); GLUCOSE, FASTING 217 MG/DL (60-100); MB/CK RELATIVE INDEX 0.86 (< OR =4); SODIUM LEVEL 136 MMOL/L (136-145)
[2024-08-14 03:19] LABS: KETONE, URINE AUTO RFX 1+ mg/dL (NEGATIVE); LEUKOCYTE ESTERASE UR AUTO RFX NEGATIVE (NEGATIVE); MUCUS, URINE RFX SMALL (NEGATIVE); NITRITE, URINE AUTO RFX NEGATIVE (NEGATIVE); RBC, URINE AUTO RFX 1 /HPF (0-3); SQUAM EPITHELIAL CELL UR AURFX 4 /HPF (0-6); WBC, URINE AUTO RFX 2 /HPF (0-3)
[2024-08-14] MEDS: NS (Normal Saline) 0.9% 1,000 ML IV ONE ×3 (04:01→20:22)
[2024-08-14 04:40] LABS: CK-MB VALUE MASS < 1.0 NG/ML (<3.6); CPK CREATINE PHOSPHOKINASE 134 U/L (34-145); MB/CK RELATIVE INDEX 0.74 (< OR =4)
[2024-08-14 04:45] LABS: ALBUMIN 4.4 G/DL (3.2-5.2); ALKALINE PHOSPHATASE 79 U/L (35-104); ALT/SGPT 34 U/L (7.0-40); AST/SGOT 26 U/L (<34); BILIRUBIN,DIRECT 0.2 MG/DL (<0.4); BILIRUBIN,TOTAL 0.8 MG/DL (0.3-1.2); TOTAL PROTEIN 8.1 G/DL (5.7-8.2)
[2024-08-14] MEDS: MORPHINE 4 MG/ML 1ML VIAL IV ONE (05:21)
[2024-08-14] MEDS: HumuLIN R (REGULAR) INSULIN (NovoLIN R) **100U/ML** PER UNIT IV ONE (06:16)
[2024-08-14] MEDS ORDERED: ISOVUE-370 76% 100ML VIAL As Ordered ONE (06:32)
[2024-08-14] MEDS ORDERED: PROT1TAB2 PO (08:43)
[2024-08-14] MEDS ORDERED: CARA1TAB6 PO (08:43)
[2024-08-14] MEDS ORDERED: LanTUS (INSULIN GLARGINE INJ) 1 UNITS/0.01 ML SC SCH (09:00)
[2024-08-14] MEDS: CARVedilol 12.5 MG TAB PO SCH (09:00)
[2024-08-14] MEDS: LOSARTAN 50MG TABLET PO SCH (09:00)
[2024-08-14] MEDS: CARVedilol 12.5 MG TAB PO ONE (09:08)
[2024-08-14] MEDS: LOSARTAN 50MG TABLET PO ONE (09:09)
[2024-08-14] MEDS: LABETALOL 100MG/20ML VIAL IV STA (10:04)
[2024-08-14] MEDS: HALOPERIDOL LACTATE 5MG/ML VIAL IV ONE (10:23)
[2024-08-14] MEDS ORDERED: ONDANSETRON 4MG 2ML VIAL IV PRN (10:45)
[2024-08-14] MEDS ORDERED: LABETALOL 100MG/20ML VIAL IV PRN (10:45)
[2024-08-14] MEDS ORDERED: GLUCAGON INJ 1MG VIAL SC PRN (10:55)
[2024-08-14] MEDS ORDERED: GLUCOSE 4 GM CHEW PO PRN (10:55)
[2024-08-14] MEDS ORDERED: DEXTROSE 50% 50ML SYRINGE IV PRN (10:55)
[2024-08-14] MEDS ORDERED: ACETAMINOPHEN *IV* 1,000 MG in IV 1 EA IV PRN (11:10)
[2024-08-14] MEDS ORDERED: ONDA-282 PO (11:24)
[2024-08-14] MEDS ORDERED: HOME MED LIST COMPLETE! XX SCH ×3 (11:25→12:00)
[2024-08-14 11:29] LABS: LIPASE 46 U/L (12-53)
[2024-08-14] MEDS: LR 1,000 ML IV SCH (11:35)
[2024-08-14] MEDS: INSULIN LISPRO (NovoLOG) PER UNIT SC SCH ×2 (12:00→21:00)
[2024-08-14] MEDS: SUCRALFATE SUSP 1GM/10ML UD PO SCH (12:00)
[2024-08-14] MEDS ORDERED: ACETAMINOPHEN 325 MG TAB PO PRN (12:30)
[2024-08-14] MEDS: PANTOPRAZOLE 40MG VIAL IV SCH (12:41)
[2024-08-14] MEDS: ASPIRIN 81MG ENTERIC TABLET PO SCH (12:41)
[2024-08-14] MEDS: APIXABAN 5 MG TAB (ELIQUIS) PO SCH (12:41)
[2024-08-14] MEDS: LanTUS (INSULIN GLARGINE INJ) 1 UNITS/0.01 ML SC SCH (12:42)
[2024-08-14 13:42] VITALS: BP 172/102; TEMP 98.9; O2SAT 98
[2024-08-14 14:40] VITALS: BP 158/96
[2024-08-14 15:40] VITALS: BP 162/87; TEMP 98.9; O2SAT 97
[2024-08-14] MEDS: METOCLOPRAMIDE INJ 10MG/2ML VIAL IV SCH (15:45)
[2024-08-14] MEDS: **hydrALAZINE** 50 MG TAB PO SCH (15:45)
[2024-08-14] MEDS: MORPHINE 2 MG/ML 1ML VIAL IV PRN (17:29)
[2024-08-14 18:55] LABS: BLOOD UREA NITROGEN 11 MG/DL (9-23); CARBON DIOXIDE LEVEL 11 MMOL/L (20-31); CHLORIDE LEVEL 104 MMOL/L (98-107); CREATININE FOR GFR 0.26 MG/DL (0.55-1.30); GLOMERULAR FILTRATION RATE > 90.0 (>58); GLUCOSE, FASTING 62 MG/DL (60-100); POTASSIUM SERUM 4.1 MMOL/L (3.5-5.1); SODIUM LEVEL 136 MMOL/L (136-145)
[2024-08-14 20:30] VITALS: BP 137/96; TEMP 98; O2SAT 95
[2024-08-14] MEDS: CYCLOBENZAPRINE 10MG TABLET PO SCH (21:25)
[2024-08-14] MEDS: EZETIMIBE 10MG TABLET (ZETIA) PO SCH (21:25)
[2024-08-14] MEDS: ROSUVASTATIN 10 MG TAB (CRESTOR) PO SCH (21:25)
[2024-08-14 22:11] LABS: VENOUS BASE EXCESS 0.1 (-2.0-2.0); VENOUS HCO3 23.1 MMOL/L (23.0-27.0); VENOUS O2 SATURATION 98.7 % (60.0-80.0); VENOUS PARTIAL PRESSURE CO2 32.7 mmHg (38.0-50.0); VENOUS PARTIAL PRESSURE O2 140.2 mmHg (30.0-50.0); VENOUS PH 7.467 UNITS (7.330-7.430); VENOUS STANDARD HCO3 24.6 MMOL/L; VENOUS TOTAL CO2 24.1 MMOL/L (24.0-28.0)
[2024-08-14 22:56] LABS: CALCIUM LEVEL 7.9 MG/DL (8.5-10.1); CREATININE FOR GFR 0.85 MG/DL (0.55-1.30); GLOMERULAR FILTRATION RATE 83.9 (>58); POTASSIUM SERUM 3.6 MMOL/L (3.5-5.1)
[2024-08-15 00:19] VITALS: BP 125/57; TEMP 98.9; O2SAT 96
[2024-08-15 03:35] VITALS: BP 163/82; TEMP 97.2; O2SAT 98
[2024-08-15 06:46] LABS: BASO % 0.4 % (0.0-1.0); EOS # 0.2 10^3/uL (0.0-0.5); EOS % 2.7 % (0.0-3.0); HEMATOCRIT 37.6 % (36.0-47.0); HEMOGLOBIN 12.9 g/dl (12.0-15.5); LYMPH # 1.6 10^3/uL (1.5-5.0); LYMPH % 18.9 % (24.0-44.0); MEAN CORPUSCULAR HEMOGLOBIN 28.7 pg (27.0-33.0); MEAN CORPUSCULAR HGB CONC 34.3 g/dl (32.0-36.5); MEAN CORPUSCULAR VOLUME 83.7 fl (80.0-96.0); MONO # 0.6 10^3/uL (0.0-0.8); MONO % 7.2 % (2.0-8.0); NEUTROPHILS # 5.9 10^3/uL (1.5-8.5); NEUTROPHILS % 70.6 % (36.0-66.0); PLATELET COUNT, AUTOMATED 256 10^3/uL (150-450); RED BLOOD COUNT 4.49 10^6/uL (4.00-5.40); WHITE BLOOD COUNT 8.4 10^3/uL (4.0-10.0)
[2024-08-15 07:08] LABS: ALBUMIN 3.5 G/DL (3.2-5.2); BILIRUBIN,TOTAL 0.8 MG/DL (0.3-1.2); CALCIUM LEVEL 8.6 MG/DL (8.5-10.1); CREATININE FOR GFR 0.93 MG/DL (0.55-1.30); GLOMERULAR FILTRATION RATE 75.4 (>58); MAGNESIUM LEVEL 1.8 MG/DL (1.8-2.4); TOTAL PROTEIN 6.5 G/DL (5.7-8.2)
[2024-08-15 07:53] VITALS: BP 160/70; TEMP 97.7; O2SAT 98
[2024-08-15] MEDS: LanTUS (INSULIN GLARGINE INJ) 1 UNITS/0.01 ML SC SCH (08:32)
[2024-08-15 08:34] VITALS: BP 163/82
[2024-08-15] MEDS: METOCLOPRAMIDE 10MG TAB PO SCH (12:02)
[2024-08-15 12:09] VITALS: BP 153/86; TEMP 97.5; O2SAT 98
[2024-08-15] MEDS ORDERED: HYDR50TA47 PO (13:31)
[2024-08-15] MEDS ORDERED: METO10TA2 PO (13:31)
== END 2024-08-15 15:24 | disposition home or self-care (01) | DRG 48 ==
LOC: M ED 22:39 → M ED INP 08-14 10:06 → M PCU 08-14 13:33
PROVIDERS: ADMIT Internal Medicine; ATTEND Internal Medicine
DX: E11.43 Type 2 diabetes mellitus with diabetic autonomic (poly)neuropathy (principal); I10 Essential (primary) hypertension; I25.10 Atherosclerotic heart disease of native coronary artery without angina pectoris; I25.2 Old myocardial infarction; Z95.2 Presence of prosthetic heart valve; Z79.01 Long term (current) use of anticoagulants; F41.9 Anxiety disorder, unspecified; K21.9 Gastro-esophageal reflux disease without esophagitis; F12.90 Cannabis use, unspecified, uncomplicated; Z91.040 Latex allergy status; Z79.899 Other long term (current) drug therapy; Z98.2 Presence of cerebrospinal fluid drainage device; K31.84 Gastroparesis

== ENCOUNTER 2024-11-23 04:30 | Inpatient (IN) | payer OTHER ==
[~2024-11-23] VITALS: Ht 152.4 cm; Wt 68.2 kg
[~2024-11-23 04:30] MED LIST changes: +ACET-1515 PO; -ACET650T15 PO; +CARA1TAB6 PO; +HYDR50TA47 PO; +PROT1TAB2 PO
[2024-11-23] MEDS: NS (Normal Saline) 0.9% 1,000 ML IV ONE ×3 (05:59→15:49)
[2024-11-23 06:11] LABS: VENOUS BASE EXCESS 8.1 (-2.0-2.0); VENOUS HCO3 33.0 MMOL/L (23.0-27.0); VENOUS O2 SATURATION 95.6 % (60.0-80.0); VENOUS PARTIAL PRESSURE CO2 46.0 mmHg (38.0-50.0); VENOUS PARTIAL PRESSURE O2 72.0 mmHg (30.0-50.0); VENOUS PH 7.474 UNITS (7.330-7.430); VENOUS STANDARD HCO3 31.9 MMOL/L; VENOUS TOTAL CO2 34.4 MMOL/L (24.0-28.0)
[2024-11-23 06:24] LABS: BASO # 0.0 10^3/uL (0.0-0.2); BASO % 0.1 % (0.0-1.0); EOS # 0.0 10^3/uL (0.0-0.5); EOS % 0.0 % (0.0-3.0); LYMPH # 1.2 10^3/uL (1.5-5.0); LYMPH % 8.7 % (24.0-44.0); MONO # 0.7 10^3/uL (0.0-0.8); MONO % 5.5 % (2.0-8.0); NEUTROPHILS # 11.2 10^3/uL (1.5-8.5); NEUTROPHILS % 85.1 % (36.0-66.0); PLATELET COUNT, AUTOMATED 269 10^3/uL (150-450)
[2024-11-23 06:44] LABS: ACETONE/KETONE 1.23 MMOL/L (0.02-0.27)
[2024-11-23 06:48] LABS: ALT/SGPT 33.0 U/L (7.0-40); AST/SGOT 43.0 U/L (<34); CALCIUM LEVEL 9.8 MG/DL (8.5-10.1); CARBON DIOXIDE LEVEL 31.0 MMOL/L (20-31); CHLORIDE LEVEL 93.0 MMOL/L (98-107); CK-MB VALUE MASS 1.3 NG/ML (<3.6); CPK CREATINE PHOSPHOKINASE 329.0 U/L (34-145); CREATININE FOR GFR 1.25 MG/DL (0.55-1.30); GLOMERULAR FILTRATION RATE 52.8 (>58); MB/CK RELATIVE INDEX 0.39 (< OR =4); OSMOLALITY SERUM 336.0 MOSM/KG (275-295); POTASSIUM SERUM 4.3 MMOL/L (3.5-5.1); SODIUM LEVEL 141.0 MMOL/L (136-145)
[2024-11-23] MEDS: ONDANSETRON 4MG 2ML VIAL IV ONE ×2 (07:03→08:32)
[2024-11-23] MEDS: MORPHINE 4 MG/ML 1 ML VIAL IV PRN (07:04)
[2024-11-23 07:51] LABS: CK-MB VALUE MASS 2.0 NG/ML (<3.6)
[2024-11-23 07:55] LABS: CPK CREATINE PHOSPHOKINASE 300.0 U/L (34-145); MB/CK RELATIVE INDEX 0.66 (< OR =4)
[2024-11-23] MEDS ORDERED: ISOVUE-370 76% 100 ML VIAL As Ordered ONE (07:56)
[2024-11-23] MEDS: HumuLIN R (REGULAR) INSULIN (NovoLIN R) **100 U/ML** PER UNIT IV ONE (08:26)
[2024-11-23 08:31] LABS: CALCIUM LEVEL 8.7 MG/DL (8.5-10.1); CARBON DIOXIDE LEVEL 25.0 MMOL/L (20-31); CHLORIDE LEVEL 101.0 MMOL/L (98-107); CREATININE FOR GFR 1.19 MG/DL (0.55-1.30); GLOMERULAR FILTRATION RATE 56.1 (>58); POTASSIUM SERUM 3.6 MMOL/L (3.5-5.1); SODIUM LEVEL 146.0 MMOL/L (136-145)
[2024-11-23 09:19] LABS: KETONE, URINE AUTO RFX 1+ mg/dL (NEGATIVE); LEUKOCYTE ESTERASE UR AUTO RFX NEGATIVE (NEGATIVE); MUCUS, URINE RFX SMALL (NEGATIVE); NITRITE, URINE AUTO RFX NEGATIVE (NEGATIVE); RBC, URINE AUTO RFX 1 /HPF (0-3); SQUAM EPITHELIAL CELL UR AURFX 2 /HPF (0-6); WBC, URINE AUTO RFX 2 /HPF (0-3)
[2024-11-23] MEDS: LR 1,000 ML IV ONE ×2 (10:46→14:43)
[2024-11-23] MEDS: INSULIN LISPRO (NovoLOG) PER UNIT SC STA ×2 (10:57→19:25)
[2024-11-23] MEDS ORDERED: INSULIN LISPRO (NovoLOG) PER UNIT SC PRN (11:30)
[2024-11-23] MEDS ORDERED: ROSU5TAB49 PO (11:33)
[2024-11-23] MEDS ORDERED: HOME MED LIST COMPLETE! XX SCH (11:35)
[2024-11-23 14:45] LABS: VENOUS BASE EXCESS 5.0 (-2.0-2.0); VENOUS HCO3 30.8 MMOL/L (23.0-27.0); VENOUS O2 SATURATION 97.6 % (60.0-80.0); VENOUS PARTIAL PRESSURE CO2 50.1 mmHg (38.0-50.0); VENOUS PARTIAL PRESSURE O2 110.4 mmHg (30.0-50.0); VENOUS PH 7.407 UNITS (7.330-7.430); VENOUS STANDARD HCO3 28.9 MMOL/L; VENOUS TOTAL CO2 32.4 MMOL/L (24.0-28.0)
[2024-11-23 15:20] LABS: CALCIUM LEVEL 8.5 MG/DL (8.5-10.1); CARBON DIOXIDE LEVEL 32.0 MMOL/L (20-31); CHLORIDE LEVEL 102.0 MMOL/L (98-107); CREATININE FOR GFR 1.13 MG/DL (0.55-1.30); GLOMERULAR FILTRATION RATE 59.6 (>58); POTASSIUM SERUM 3.7 MMOL/L (3.5-5.1); SODIUM LEVEL 145.0 MMOL/L (136-145)
[2024-11-23] MEDS ORDERED: NS (Normal Saline) 0.9% 1,000 ML IV SCH (15:50)
[2024-11-23] MEDS ORDERED: ACETAMINOPHEN 650 MG ER TAB PO PRN (15:55)
[2024-11-23] MEDS ORDERED: GLUCAGON INJ 1 MG VIAL SC PRN (16:00)
[2024-11-23] MEDS ORDERED: GLUCOSE 4 GM CHEW PO PRN (16:00)
[2024-11-23] MEDS ORDERED: DEXTROSE 50% 50 ML SYRINGE IV PRN (16:00)
[2024-11-23 16:38] VITALS: BP 189/106
[2024-11-23] MEDS: ONDANSETRON 4MG 2ML VIAL IV PRN (16:38)
[2024-11-23] MEDS: LOSARTAN 50 MG TABLET PO SCH (16:38)
[2024-11-23] MEDS: D5W/0.45% SODIUM CHLORIDE 1,000 ML IV SCH (16:43)
[2024-11-23] MEDS: LanTUS (INSULIN GLARGINE INJ) 1 UNITS/0.01 ML SC ONE (16:44)
[2024-11-23] MEDS: INSULIN LISPRO (NovoLOG) PER UNIT SC SCH ×2 (17:30→23:00)
[2024-11-23 17:37] LABS: AMPHETAMINES LEVEL URINE NEGATIVE (NEGATIVE); BARBITURATES URINE NEGATIVE (NEGATIVE); BENZODIAZEPINES URINE NEGATIVE (NEGATIVE); COCAINE METABOLITE URINE NEGATIVE (NEGATIVE); METHADONE URINE NEGATIVE (NEGATIVE); PHENCYCLIDINE URINE NEGATIVE (NEGATIVE)
[2024-11-23 17:39] LABS: CANNABINOIDS URINE POSITIVE (NEGATIVE); OPIATES URINE POSITIVE (NEGATIVE)
[2024-11-23 17:54] LABS: CALCIUM LEVEL 8.4 MG/DL (8.5-10.1); CARBON DIOXIDE LEVEL 33.0 MMOL/L (20-31); CHLORIDE LEVEL 101.0 MMOL/L (98-107); CREATININE FOR GFR 1.12 MG/DL (0.55-1.30); GLOMERULAR FILTRATION RATE 60.3 (>58); MAGNESIUM LEVEL 2.0 MG/DL (1.8-2.4); PHOSPHORUS LEVEL 2.7 MG/DL (2.5-4.9); POTASSIUM SERUM 3.7 MMOL/L (3.5-5.1); SODIUM LEVEL 145.0 MMOL/L (136-145)
[2024-11-23] MEDS: MORPHINE 4 MG/ML 1 ML VIAL IV ONE (18:09)
[2024-11-23] MEDS ORDERED: INSULIN LISPRO (NovoLOG) PER UNIT SC SCH (21:00)
[2024-11-23 21:01] LABS: CALCIUM LEVEL 8.1 MG/DL (8.5-10.1); CARBON DIOXIDE LEVEL 32.0 MMOL/L (20-31); CHLORIDE LEVEL 102.0 MMOL/L (98-107); CREATININE FOR GFR 1.1 MG/DL (0.55-1.30); GLOMERULAR FILTRATION RATE 61.6 (>58); POTASSIUM SERUM 3.7 MMOL/L (3.5-5.1); SODIUM LEVEL 143.0 MMOL/L (136-145)
[2024-11-23] MEDS: CYCLOBENZAPRINE 10 MG TABLET PO SCH (21:28)
[2024-11-23] MEDS: APIXABAN 5 MG TAB PO SCH (21:28)
[2024-11-23] MEDS: ROSUVASTATIN 10 MG TAB PO SCH (21:29)
[2024-11-23] MEDS: EZETIMIBE 10 MG TABLET PO SCH (22:06)
[2024-11-23] MEDS: POTASSIUM PHOSPHATE INJ 20 MMOL in D5W 250 ML IV ONE (22:07)
[2024-11-24 01:10] LABS: CALCIUM LEVEL 8.2 MG/DL (8.5-10.1); CARBON DIOXIDE LEVEL 31.0 MMOL/L (20-31); CHLORIDE LEVEL 101.0 MMOL/L (98-107); CREATININE FOR GFR 1.14 MG/DL (0.55-1.30); GLOMERULAR FILTRATION RATE 59.0 (>58); POTASSIUM SERUM 3.9 MMOL/L (3.5-5.1); SODIUM LEVEL 143.0 MMOL/L (136-145)
[2024-11-24] MEDS: MORPHINE 4 MG/ML 1 ML VIAL IV PRN (04:09)
[2024-11-24 04:23] LABS: CALCIUM LEVEL 7.9 MG/DL (8.5-10.1); CARBON DIOXIDE LEVEL 31.0 MMOL/L (20-31); CHLORIDE LEVEL 100.0 MMOL/L (98-107); CREATININE FOR GFR 1.15 MG/DL (0.55-1.30); GLOMERULAR FILTRATION RATE 58.4 (>58); POTASSIUM SERUM 3.6 MMOL/L (3.5-5.1); SODIUM LEVEL 141.0 MMOL/L (136-145)
[2024-11-24] MEDS: INSULIN LISPRO (NovoLOG) PER UNIT SC SCH (08:42)
[2024-11-24] MEDS ORDERED: LOSARTAN 50 MG TABLET PO SCH (09:00)
[2024-11-24] MEDS: ASPIRIN 81 MG ENTERIC TABLET PO SCH (10:21)
[2024-11-24] MEDS: FERROUS SULFATE 325 MG TAB PO SCH (10:22)
[2024-11-24] MEDS: LanTUS (INSULIN GLARGINE INJ) 1 UNITS/0.01 ML SC SCH (10:23)
[2024-11-24] MEDS ORDERED: LANTINJ4 SC (11:35)
[2024-11-24] MEDS ORDERED: ONDA-282 PO (11:35)
[2024-11-24 11:51] LABS: CALCIUM LEVEL 8.3 MG/DL (8.5-10.1); CARBON DIOXIDE LEVEL 31.0 MMOL/L (20-31); CHLORIDE LEVEL 101.0 MMOL/L (98-107); CREATININE FOR GFR 1.09 MG/DL (0.55-1.30); GLOMERULAR FILTRATION RATE 62.3 (>58); POTASSIUM SERUM 3.7 MMOL/L (3.5-5.1); SODIUM LEVEL 140.0 MMOL/L (136-145)
[2024-11-24 12:54] VITALS: BP 162/93; TEMP 98.7; O2SAT 95
[2024-11-24] MEDS ORDERED: INSULIN LISPRO (NovoLOG) PER UNIT SC SCH (21:00)
== END 2024-11-24 12:54 | disposition home or self-care (01) | DRG 420 ==
LOC: M ED 04:30 → M ED INP 15:44
PROVIDERS: ADMIT General Practice; ATTEND General Practice
DX: E11.10 Type 2 diabetes mellitus with ketoacidosis without coma (principal); K31.84 Gastroparesis; I10 Essential (primary) hypertension; I25.10 Atherosclerotic heart disease of native coronary artery without angina pectoris; I25.2 Old myocardial infarction; F41.9 Anxiety disorder, unspecified; K21.9 Gastro-esophageal reflux disease without esophagitis; Z95.5 Presence of coronary angioplasty implant and graft; Z90.49 Acquired absence of other specified parts of digestive tract; I16.0 Hypertensive urgency; Z79.01 Long term (current) use of anticoagulants; Z79.82 Long term (current) use of aspirin; Z79.4 Long term (current) use of insulin; Z79.899 Other long term (current) drug therapy; Z88.5 Allergy status to narcotic agent; Z88.8 Allergy status to other drugs, medicaments and biological substances; Z91.040 Latex allergy status; E11.43 Type 2 diabetes mellitus with diabetic autonomic (poly)neuropathy